=== PATIENT | female | born 1980 | race Caucasian/White ===

== ENCOUNTER 2017-10-22 16:03 | Emergency (ER) | payer OTHER ==
[~2017-10-22] VITALS: Ht 165.1 cm; Wt 90.7 kg
[~2017-10-22 16:03] MED LIST: ALBU90OI INH; Ativan1 MG SL; BUPR150ER PO; Desyrel50 MG PO; LATUDA40 MG PO; LITH300ER PO; METPHE20 PO; QUET100 PO; QVAR7.3 G1 IH; TRAZ100 PO; Zofran Odt4 MG SL
[2017-10-22 17:21] LABS: BASOPHILS ABSOLUTE AUTO 0.09 K/mm3 (0.00-0.23); BASOPHILS PERCENT AUTO 1 % (0-2); EOSINOPHILS ABSOLUTE AUTO 0.22 K/mm3 (0.00-0.68); EOSINOPHILS PERCENT AUTO 2 % (0-6); Hematocrit 38.9 % (33.0-51.0); Hemoglobin 12.5 g/dL (11.5-16.0); IMMATURE GRAN ABSOLUTE AUTO 0.07 K/mm3 (0.00-0.10); IMMATURE GRAN PERCENT AUTO 1 % (0-1); LYMPHOCYTES ABSOLUTE AUTO 2.38 K/mm3 (0.84-5.20); LYMPHOCYTES PERCENT AUTO 18 % (21-46); MONOCYTES ABSOLUTE AUTO 0.52 K/mm3 (0.16-1.47); MONOCYTES PERCENT AUTO 4 % (4-13); Mean Corpuscular HGB 30.3 pg (26.0-34.0); Mean Corpuscular HGB Conc 32.1 g/dL (31.5-36.5); Mean Corpuscular Volume 94 fL (80-100); Mean Platelet Volume 10.2 fL (9.1-12.4); NEUTROPHILS ABSOLUTE AUTO 10.04 K/mm3 (1.96-9.15); NEUTROPHILS PERCENT AUTO 75 % (41-73); Platelet Count 292 K/mm3 (150-400); RDW Coefficient Variation 11.9 % (11.7-14.2); RDW Standard Deviation 41.7 fL (35.1-46.3); Red Blood Cell Count 4.13 M/mm3 (3.80-5.20); White Blood Cell Count 13.32 K/mm3 (4.00-11.30)
[2017-10-22] MEDS ORDERED: GABA300 PO (17:27)
[2017-10-22] MEDS ORDERED: ARIP10 PO (17:28)
[2017-10-22] MEDS ORDERED: ZOLP10 PO (17:28)
[2017-10-22 18:24] LABS: Alanine Aminotransfer (ALT/SGP 27 U/L (12-78); Albumin, Blood 3.6 g/dL (3.4-5.0); Albumin/Globulin Ratio 0.9 (0.8-1.8); Alk Phos 93 U/L (50-136); Anion Gap 11 mmol/L (6-16); Aspartate Aminotrans (AST/SGOT 35 U/L (12-37); Bilirubin, Total 0.4 mg/dL (0.1-1.0); Blood Urea Nitrogen 7 mg/dL (8-24); Bun/Creatinine Ratio 8.9 (12.0-20.0); CO2, Blood 22 mmol/L (21-32); Calcium, Blood 8.9 mg/dL (8.5-10.1); Chloride, Blood 107 mmol/L (98-108); Creatinine, Blood 0.79 mg/dL (0.40-1.00); Ethanol (Alcohol), Blood, Med <3 mg/dL; Globulin, Blood 4.1 g/dL (2.2-4.0); Glomerular Filtration Rate >60 (60-); Glucose, Blood 97 mg/dL (70-99); Potassium, Blood 4.9 mmol/L (3.5-5.5); Sodium, Blood 140 mmol/L (136-145); Total Protein, Blood 7.7 g/dL (6.4-8.2)
[2017-10-22 19:10] LABS: Lithium 1.01 mmol/L (0.60-1.20)
[2018-08-29] MEDS ORDERED: BENZ100A PO (22:38)
[2018-08-29] MEDS ORDERED: Prednisone20 MG PO (22:38)
== END 2017-10-22 19:32 | disposition home or self-care (01) ==
LOC: ER 16:03
PROVIDERS: Emergency Medicine
DX: K59.00 Constipation, unspecified (principal); R10.13 Epigastric pain; F17.200 Nicotine dependence, unspecified, uncomplicated; F32.9 Major depressive disorder, single episode, unspecified; Z88.0 Allergy status to penicillin; Z79.899 Other long term (current) drug therapy
CPT/HCPCS: 74176; 80053; 80178; 83690; 84703; 85025; 96361; 96374; 96375; 99284; G0480; J1170; J2550; J7030

== ENCOUNTER → 2019-03-07 | Outpatient (CLI) | payer OTHER ==
[~2019-03-07] MED LIST changes: +ARIP10 PO; +BENZ100A PO; +GABA300 PO; +Prednisone20 MG PO; +ZOLP10 PO
[2019-03-11 14:07] LABS: HPV 16 Negative (Negative); HPV 18 Negative (Negative); HPV OTHER HR TYPES Negative (Negative)
== END | disposition home or self-care (01) ==
LOC: LAB SHORT 15:54 → LAB 15:54
PROVIDERS: Obstetrics & Gynecology
DX: Z01.411 Encounter for gynecological examination (general) (routine) with abnormal findings (principal); L02.419 Cutaneous abscess of limb, unspecified
CPT/HCPCS: 87070; 87205; 87624; G0123

== ENCOUNTER 2020-07-23 19:24 | Emergency (ER) | payer OTHER ==
[~2020-07-23] VITALS: Ht 165.1 cm; Wt 86.2 kg
[~2020-07-23 19:24] MED LIST changes: +B-1100 M1 PO; +CYCLOBENZAPRINE5 MG PO; +Diphenhydramine50 M1 PO; +FOLI1 PO; -GABA300 PO; +GABAPENTIN600 MG PO; +LEVE500 PO; +PYRI100 PO
[2020-07-23 19:49] LABS: BASOPHILS ABSOLUTE AUTO 0.13 K/mm3 (0.00-0.23); BASOPHILS PERCENT AUTO 1 % (0-2); EOSINOPHILS ABSOLUTE AUTO 0.29 K/mm3 (0.00-0.68); EOSINOPHILS PERCENT AUTO 3 % (0-6); Hematocrit 32.9 % (33.0-51.0); Hemoglobin 9.4 g/dL (11.5-16.0); IMMATURE GRAN ABSOLUTE AUTO 0.05 K/mm3 (0.00-0.10); IMMATURE GRAN PERCENT AUTO 1 % (0-1); LYMPHOCYTES ABSOLUTE AUTO 2.47 K/mm3 (0.84-5.20); LYMPHOCYTES PERCENT AUTO 24 % (21-46); MONOCYTES PERCENT AUTO 5 % (4-13); Mean Corpuscular HGB 21.1 pg (26.0-34.0); Mean Corpuscular HGB Conc 28.6 g/dL (31.5-36.5); Mean Corpuscular Volume 74 fL (80-100); Mean Platelet Volume 9.6 fL (9.1-12.4); NEUTROPHILS ABSOLUTE AUTO 6.96 K/mm3 (1.96-9.15); NEUTROPHILS PERCENT AUTO 67 % (41-73); Platelet Count 407 K/mm3 (150-400); RDW Coefficient Variation 17.8 % (11.7-14.2); RDW Standard Deviation 46.7 fL (35.1-46.3); Red Blood Cell Count 4.46 M/mm3 (3.80-5.20)
[2020-07-23 19:56] LABS: Source, Urine Clean Catch
[2020-07-23 19:56] LABS: International Normalized Ratio 0.92; Prothrombin Time Results 9.9 Sec (9.7-11.5)
[2020-07-23 19:59] LABS: Bilirubin, Urine Neg (Neg); Blood, Urine Neg (Neg); Glucose Qualitative, Urine Neg (Neg); Ketones, Urine Neg (Neg); Leukocyte Esterase, Urine Neg (Neg); Nitrite, Urine Neg (Neg); Protein, Urine Neg (Neg); Specific Gravity, Urine 1.005 (1.003-1.022); Urobilinogen, Urine NORM (Normal)
[2020-07-23 20:04] LABS: Beta HCG, Quantitative, Serum <1 mIU/mL (0-3); Ethanol (Alcohol), Blood, Med <3 mg/dL
[2020-07-23 20:07] LABS: Alanine Aminotransfer (ALT/SGP 59 U/L (12-78); Albumin, Blood 3.7 g/dL (3.4-5.0); Albumin/Globulin Ratio 0.8 (0.8-1.8); Alk Phos 124 U/L (50-136); Anion Gap 10 mmol/L (6-16); Aspartate Aminotrans (AST/SGOT 54 U/L (12-37); Bilirubin, Total 0.1 mg/dL (0.1-1.0); Blood Urea Nitrogen 13 mg/dL (8-24); Bun/Creatinine Ratio 11.8 (12.0-20.0); CO2, Blood 22 mmol/L (21-32); Calcium, Blood 9.6 mg/dL (8.5-10.1); Chloride, Blood 107 mmol/L (98-108); Globulin, Blood 4.4 g/dL (2.2-4.0); Glomerular Filtration Rate 58 (60-); Glucose, Blood 159 mg/dL (70-99); Potassium, Blood 3.8 mmol/L (3.5-5.5); Sodium, Blood 139 mmol/L (136-145); Total Protein, Blood 8.1 g/dL (6.4-8.2)
[2020-07-23 20:10] LABS: Appearance, Urine Clear (Clear); Color, Urine Yellow (P-Yellow)
[2020-07-23 20:17] LABS: U Amphetamine Screen DETECTED; U Barbituate Screen Not Detected; U Benzodiazapine Screen Not Detected; U Buprenorphine Screen Not Detected; U Cannabinoids Screen DETECTED; U Cocaine Screen Not Detected; U Methadone Screen Not Detected; U Methamphetamine Screen Not Detected; U Opiates Screen Not Detected; U Oxycodone Screen Not Detected; U Phencyclidine Screen Not Detected; U Propoxyphene Screen Not Detected
[2020-07-23] MEDS ORDERED: CLIN150 PO (20:31)
== END 2020-07-23 22:36 | disposition home or self-care (01) ==
LOC: ER 19:24
PROVIDERS: Emergency Medicine
DX: G40.909 Epilepsy, unspecified, not intractable, without status epilepticus (principal); F90.9 Attention-deficit hyperactivity disorder, unspecified type; F32.9 Major depressive disorder, single episode, unspecified; F17.290 Nicotine dependence, other tobacco product, uncomplicated; Z79.899 Other long term (current) drug therapy; Z88.0 Allergy status to penicillin; W16.012A Fall into swimming pool striking water surface causing other injury, initial encounter
CPT/HCPCS: 70450; 72125; 80053; 81003; 83690; 84702; 85025; 85610; 99285-25; G0480

== ENCOUNTER 2020-08-16 18:54 | Emergency (ER) | payer OTHER ==
[~2020-08-16] VITALS: Ht 175.3 cm; Wt 81.7 kg
[~2020-08-16 18:54] MED LIST changes: +CLIN150 PO
[2020-08-16] MEDS ORDERED: SYMBICORT 160-4.6 GM INH (19:33)
[2020-08-16] MEDS ORDERED: Ventolin/Prove6.7 GM INH (19:34)
[2020-08-16] MEDS ORDERED: CYCLOBENZAPRINE5 MG PO (19:34)
[2020-08-16] MEDS ORDERED: HYDCHL25 PO (19:34)
[2020-08-16] MEDS ORDERED: POTA10T PO (19:35)
[2020-08-16] MEDS ORDERED: ARIP20 PO (19:35)
[2020-08-16] MEDS ORDERED: Primidone50 MG PO (19:35)
[2020-08-16 19:48] LABS: BASOPHILS ABSOLUTE AUTO 0.14 K/mm3 (0.00-0.23); BASOPHILS PERCENT AUTO 1 % (0-2); EOSINOPHILS ABSOLUTE AUTO 0.29 K/mm3 (0.00-0.68); EOSINOPHILS PERCENT AUTO 3 % (0-6); Hematocrit 34.9 % (33.0-51.0); Hemoglobin 9.9 g/dL (11.5-16.0); IMMATURE GRAN ABSOLUTE AUTO 0.07 K/mm3 (0.00-0.10); IMMATURE GRAN PERCENT AUTO 1 % (0-1); LYMPHOCYTES ABSOLUTE AUTO 2.57 K/mm3 (0.84-5.20); LYMPHOCYTES PERCENT AUTO 24 % (21-46); MONOCYTES ABSOLUTE AUTO 0.56 K/mm3 (0.16-1.47); MONOCYTES PERCENT AUTO 5 % (4-13); Mean Corpuscular HGB 20.9 pg (26.0-34.0); Mean Corpuscular HGB Conc 28.4 g/dL (31.5-36.5); Mean Corpuscular Volume 74 fL (80-100); Mean Platelet Volume 9.8 fL (9.1-12.4); NEUTROPHILS PERCENT AUTO 67 % (41-73); Platelet Count 488 K/mm3 (150-400); RDW Coefficient Variation 18.6 % (11.7-14.2); Red Blood Cell Count 4.74 M/mm3 (3.80-5.20); White Blood Cell Count 10.93 K/mm3 (4.00-11.30)
[2020-08-16 20:04] LABS: U Amphetamine Screen DETECTED; U Barbituate Screen Not Detected; U Benzodiazapine Screen DETECTED; U Buprenorphine Screen Not Detected; U Cannabinoids Screen DETECTED; U Cocaine Screen Not Detected; U Methadone Screen Not Detected; U Methamphetamine Screen DETECTED; U Opiates Screen Not Detected; U Oxycodone Screen Not Detected; U Phencyclidine Screen Not Detected; U Propoxyphene Screen Not Detected
[2020-08-16 20:05] LABS: Alanine Aminotransfer (ALT/SGP 44 U/L (12-78); Albumin, Blood 4.2 g/dL (3.4-5.0); Alk Phos 99 U/L (50-136); Anion Gap 14 mmol/L (6-16); Aspartate Aminotrans (AST/SGOT 31 U/L (12-37); Bilirubin, Total 0.3 mg/dL (0.1-1.0); Blood Urea Nitrogen 14 mg/dL (8-24); Bun/Creatinine Ratio 10.6 (12.0-20.0); CO2, Blood 20 mmol/L (21-32); Calcium, Blood 9.6 mg/dL (8.5-10.1); Chloride, Blood 107 mmol/L (98-108); Creatinine, Blood 1.32 mg/dL (0.40-1.00); Ethanol (Alcohol), Blood, Med <3 mg/dL; Glomerular Filtration Rate 47 (60-); Glucose, Blood 159 mg/dL (70-99); Potassium, Blood 3.9 mmol/L (3.5-5.5); Salicylate <1.7 mg/dL (2.8-20.0); Sodium, Blood 141 mmol/L (136-145); Total Protein, Blood 8.2 g/dL (6.4-8.2)
[2020-08-16 20:06] LABS: Acetaminophen, Random <2.0 ug/mL (10.0-30.0)
== END 2020-08-16 21:20 | disposition home or self-care (01) ==
LOC: ER 18:54
PROVIDERS: Student in an Organized Health Care Education/Training Program
DX: R45.1 Restlessness and agitation (principal); F15.10 Other stimulant abuse, uncomplicated; F90.9 Attention-deficit hyperactivity disorder, unspecified type; Z79.51 Long term (current) use of inhaled steroids; Z79.899 Other long term (current) drug therapy; Z88.0 Allergy status to penicillin; Z88.8 Allergy status to other drugs, medicaments and biological substances
CPT/HCPCS: 36415; 80053; 85025; 96374; 99285-25; G0480; J2060

== ENCOUNTER 2020-11-03 18:24 | Inpatient (IN) | payer OTHER ==
[~2020-11-03] VITALS: Ht 165.1 cm; Wt 90.3 kg
[~2020-11-03 18:24] MED LIST changes: +ARIP20 PO; +HYDCHL25 PO; +POTA10T PO; +Primidone50 MG PO; +SYMBICORT 160-4.6 GM INH
[2020-11-03] MEDS ORDERED: AMPDEX15CR PO (18:35)
[2020-11-03] MEDS ORDERED: BUPR75 PO (18:35)
[2020-11-03 21:07] LABS: BASOPHILS ABSOLUTE AUTO 0.04 K/mm3 (0.00-0.23); BASOPHILS PERCENT AUTO 0 % (0-2); EOSINOPHILS ABSOLUTE AUTO 0.02 K/mm3 (0.00-0.68); EOSINOPHILS PERCENT AUTO 0 % (0-6); IMMATURE GRAN ABSOLUTE AUTO 0.59 K/mm3 (0.00-0.10); IMMATURE GRAN PERCENT AUTO 3 % (0-1); LYMPHOCYTES ABSOLUTE AUTO 2.04 K/mm3 (0.84-5.20); LYMPHOCYTES PERCENT AUTO 10 % (21-46); MONOCYTES ABSOLUTE AUTO 0.66 K/mm3 (0.16-1.47); MONOCYTES PERCENT AUTO 3 % (4-13); Mean Corpuscular HGB 20.2 pg (26.0-34.0); Mean Corpuscular HGB Conc 29.1 g/dL (31.5-36.5); Mean Corpuscular Volume 69 fL (80-100); Mean Platelet Volume 9.6 fL (9.1-12.4); NEUTROPHILS ABSOLUTE AUTO 17.55 K/mm3 (1.96-9.15); NEUTROPHILS PERCENT AUTO 84 % (41-73); Platelet Count 878 K/mm3 (150-400); RDW Coefficient Variation 18.4 % (11.7-14.2); RDW Standard Deviation 45.5 fL (35.1-46.3); Red Blood Cell Count 2.53 M/mm3 (3.80-5.20)
[2020-11-03 21:16] LABS: Hematocrit 17.5 % (33.0-51.0); Hemoglobin 5.1 g/dL (11.5-16.0)
[2020-11-03 21:26] LABS: Source, Urine Voided
[2020-11-03 21:39] LABS: Appearance, Urine Clear (Clear); Bilirubin, Urine Neg (Neg); Blood, Urine 1+ (Neg); Color, Urine Yellow (P-Yellow); Glucose Qualitative, Urine Neg (Neg); Ketones, Urine Neg (Neg); Leukocyte Esterase, Urine 2+ (Neg); Nitrite, Urine Neg (Neg); Protein, Urine 2+ (Neg); Urobilinogen, Urine NORM (Normal)
[2020-11-03 21:41] LABS: Lithium 0.42 mmol/L (0.60-1.20)
[2020-11-03 21:51] LABS: Amorphous Light (0-Heavy); Bacteria Mod /hpf; Red Blood Cells, Urine Rare /hpf (0-2); Squamous Epithelial Cells Mod /hpf (Few)
[2020-11-03 21:55] LABS: U Amphetamine Screen Not Detected; U Barbituate Screen Not Detected; U Benzodiazapine Screen Not Detected; U Buprenorphine Screen Not Detected; U Cannabinoids Screen DETECTED; U Cocaine Screen Not Detected; U Methadone Screen Not Detected; U Methamphetamine Screen Not Detected; U Opiates Screen Not Detected; U Oxycodone Screen Not Detected; U Phencyclidine Screen Not Detected; U Propoxyphene Screen Not Detected
[2020-11-03 21:58] LABS: Percent Saturation 3.8 % (15.0-50.0)
--- NOTE | 2020-11-03 23:20 | NUR ---
NOTIFIED / ELEVATED TEMP PT BROUGHT TO PCU BY CARRI FROM ER W/ BLOOD INDUSING. NOTIFIED THAT PT TEMP NOTED TO BE INCREASING & PT REPORTS FEVERS & CHILLS AT HOME PRIOR TO ARRIVAL & BLOOD INITIATION. NOTIFIED W/ OKAY TO CONTINUE BLOOD TRANSFUSION.
--- NOTE | 2020-11-04 04:08 | NUR ---
WEB DEVELOPMENT DIRECTOR SUMMARY PT ARRIVED ON THE FLOOR WITH FIRST UNIT OF BLOOD RUNNING. REPEAT VS SHOWED AN INCREASING TEMP WHICH PEAKED AT 103 SO THE PROVIDER WAS CONTACTED WHO ORDERED TYLENOL AND TO MONITOR SYMPTOMS. PT WAS GIVEN TYLENOL WHICH BROUGHT TEMP DOWN, CURRENT TEMP IS 97.9. NO OBVIOUS SIGNS OF BLEEDING HOWEVER BP HAS REMAINED LOWER WITH SBP AROUND 100. PT HAS TREMOR THAT SHE THOUGHT BEGAN WITH FEVER AND WAS DIAPHORETIC THROUGHOUT THE SHIFT. CIWA 2-5 DUE TO SWEATING AND TREMOR THOUGH PT REPORTED THAT SHE DOESNT REALLY DRINK ANYMORE. PT HAS BEEN SINUS TACH IN THE 100'S BUT HAS IMPROVED THROUGHOUT THE SHIFT. NO NAUSEA THIS SHIFT. O2 SATS >92 ON RM AIR. PT IS AXO X4. WCTM.
[2020-11-04 06:47] LABS: Bun/Creatinine Ratio 16.7 (12.0-20.0); Calcium, Blood 7.6 mg/dL (8.5-10.1); Creatinine, Blood 1.56 mg/dL (0.40-1.00)
[2020-11-04 06:55] LABS: Hematocrit 24.2 % (33.0-51.0); Hemoglobin 7.5 g/dL (11.5-16.0); Mean Corpuscular HGB 22.6 pg (26.0-34.0); Mean Corpuscular Volume 73 fL (80-100); Mean Platelet Volume 10.1 fL (9.1-12.4); Platelet Count 882 K/mm3 (150-400); RDW Coefficient Variation 21.3 % (11.7-14.2); Red Blood Cell Count 3.32 M/mm3 (3.80-5.20); White Blood Cell Count 22.49 K/mm3 (4.00-11.30)
[2020-11-04 12:37] LABS: Hematocrit 20.7 % (33.0-51.0); Hemoglobin 6.3 g/dL (11.5-16.0)
[2020-11-04 13:02] LABS: Percent Saturation 25.4 % (15.0-50.0)
[2020-11-04 16:32] LABS: Hematocrit 25.3 % (33.0-51.0); Hemoglobin 7.3 g/dL (11.5-16.0)
--- NOTE | 2020-11-04 18:02 | NUR ---
PT SUMMARY: PT ALERT AND ORIENTED X3, UNSURE OF TIME AND DATE, PLEASANT AND COOPERATIVE. VITALS HRR SR 90'S, BP SYSTOLIC 115'S, SATS ABOVE 98% ON RA, AFEBRILE. CIWA SCORE HAS BEEN 5-8, ATIVAN AND LIBRIUM GIVEN FOR THE SHIFT PT STILL HAS TREMORS/CHILLS WORSENS WITH MOVEMENTS, MILD HEADACHE. NO REPORTED BLACK STOOLS OR ANY ACTIVE BLEEDING AT THIS TIME LAST HGB 7.3. PT STARTED FEELING SHORT OF BREATH MOSTLY WITH EXERTION AND WHEEZY PT STATED SHE HAS ASTHMA AND GETS EXACERBATED WITH STRESS ALBUTEROL UPDRAFT ORDERED AND WAS EFFECTIVE AFTER 1 DOSE GIVEN. ALSO C/O MENSTRUAL LIKE CRAMPS TYLENOL GIVEN AT THIS TIME, NORCO ORDERED WELL PRN. NS RUNNING AT 100MLS/HR. PT USES BSC FOR TOILETING, USED BEDPAN ONCE WHEN PT WAS FEELING SHORT OF BREATH. PT VOIDING WITH ADEQUATE AMOUNT OF URINE, URINE YELLOW LADY IN COLOR. PT DIET RESUMED TO CLEAR LIQUIDS PT TOLERATING WELL. PT REMAINS IN BED RESTING, NO OTHER ISSUES ENCOUNTERED FOR THE SHIFT, ABLE TO MAKE NEEDS KNOWN, WILL MONITOR UNTIL END OF SHIFT
[2020-11-04 21:56] LABS: Hematocrit 21.7 % (33.0-51.0); Hemoglobin 6.6 g/dL (11.5-16.0)
--- NOTE | 2020-11-04 22:50 | NUR ---
HEMOGLOBIN 6.6 CALLED RAE BARCENAS TO REPORT DROP IN HEMOGLOBIN FROM 7.3 TO 6.6. NS @100 ML/HR, PT DRANK ABOUT 1500 MLS SINCE START OF SHIFT. MAY BE DUE TO HEMODILUTION. NO NEW ORDER ACCEPT FOR AM LABS ARE IN. DECREASED NS FROM 100 MLS TO 50 MLS/HR PER ORDER.
[2020-11-05 04:29] LABS: BASOPHILS ABSOLUTE AUTO 0.05 K/mm3 (0.00-0.23); BASOPHILS PERCENT AUTO 0 % (0-2); EOSINOPHILS PERCENT AUTO 1 % (0-6); IMMATURE GRAN ABSOLUTE AUTO 0.39 K/mm3 (0.00-0.10); IMMATURE GRAN PERCENT AUTO 2 % (0-1); LYMPHOCYTES ABSOLUTE AUTO 1.54 K/mm3 (0.84-5.20); LYMPHOCYTES PERCENT AUTO 9 % (21-46); MONOCYTES ABSOLUTE AUTO 0.48 K/mm3 (0.16-1.47); MONOCYTES PERCENT AUTO 3 % (4-13); Mean Corpuscular HGB 22.3 pg (26.0-34.0); Mean Corpuscular HGB Conc 29.5 g/dL (31.5-36.5); Mean Corpuscular Volume 76 fL (80-100); Mean Platelet Volume 9.8 fL (9.1-12.4); NEUTROPHILS PERCENT AUTO 85 % (41-73); Platelet Count 856 K/mm3 (150-400); RDW Coefficient Variation 20.6 % (11.7-14.2); RDW Standard Deviation 55.3 fL (35.1-46.3); Red Blood Cell Count 2.65 M/mm3 (3.80-5.20); White Blood Cell Count 17.46 K/mm3 (4.00-11.30)
[2020-11-05 04:49] LABS: Hemoglobin 5.9 g/dL (11.5-16.0)
[2020-11-05 04:53] LABS: Bun/Creatinine Ratio 15.5 (12.0-20.0); Calcium, Blood 7.9 mg/dL (8.5-10.1); Creatinine, Blood 1.29 mg/dL (0.40-1.00); Potassium, Blood 3.7 mmol/L (3.5-5.5)
--- NOTE | 2020-11-05 05:03 | NUR ---
CALLED DR BRUNSON FOR HEMAGLOBIN OF 5.9. 2 UNITS OF RBC ORDERED. NO SIGNS OF BLEEDING. VSS.
--- NOTE | 2020-11-05 06:57 | NUR ---
STAYED IN ROOM FIRST 15 MINS OF BLOOD TRANSFUSION. NO SIGNS AND SYMPTOMS OF ADVERSE REACTIONS NOTED. VSS.
--- NOTE | 2020-11-05 08:22 | NUR ---
CIWA 9 at this time. STates pain in her lower abdomen, now for several weeks, describes as cramping with intermittent sharp pains, compares it to menstrual pains. has implants for control, and had light spotting recently, but a long time since a normal menstrual cycle. States she was told as outpt that she may have early menopause. Mild anxiety, mild headache, moderate tremors. Oriented except to date. States date is June 08, 2021. Fumbles over her words at times. Tachypneic at rest, states dyspnea worse with activity, which is what brought her into hosptial, along with pain. Frequently talks in her sleep. Blood transfusion still infusing at this time, as well as protonix gtt. She had some of her broth for breakfast, states that eating / drinking gives her pain relief. She would like to have regular food.
--- NOTE | 2020-11-05 09:23 | NUR ---
Dr. Perez here to see the patient.
[2020-11-05 09:51] LABS: Hematocrit 24.4 % (33.0-51.0); Hemoglobin 7.3 g/dL (11.5-16.0)
--- NOTE | 2020-11-05 11:46 | NUR ---
MEDICATED With librium at this time.
--- NOTE | 2020-11-05 14:04 | NUR ---
Pt states headache is resolved , and still having some abdominal pain intermitently. Had one large brown soft formed bowel movement, sent for guiac at this time.
[2020-11-05 14:28] LABS: Hematocrit 27.1 % (33.0-51.0); Hemoglobin 8.3 g/dL (11.5-16.0)
--- NOTE | 2020-11-05 16:53 | NUR ---
States that her pain level is improving. She is sitting up in bed, talking with her daughter. Pleasant, no anxiety noted. No dyspnea noted at this time.
--- NOTE | 2020-11-05 16:56 | NUR ---
The pt has appeared to be napping on and off all day. She states that she is meditating/napping throughout the day. States that she occasionally has a headache, and also intermittent abdominal pain, and both of these are exacerbated by her activity and improved with rest. She is forgetful of directions and not oriented to the date, but only to the year. She has consistently been tachypneic, shallow breathing, with clear lung sounds, at rest and with activity. NO hypoxemia. Tolerating walking to the bathroom or use of BSC for toileting. Tolerating clear liquids by mouth, and asking for more food; however, voiced understanding that her diet will stay clear liquids at least until an evaluation by GI can be done tomorrow. Stool for guaic has been sent and is still pending at last check.
[2020-11-05 20:40] LABS: Hematocrit 25.5 % (33.0-51.0)
[2020-11-06 02:19] LABS: BASOPHILS ABSOLUTE AUTO 0.04 K/mm3 (0.00-0.23); BASOPHILS PERCENT AUTO 0 % (0-2); EOSINOPHILS ABSOLUTE AUTO 0.14 K/mm3 (0.00-0.68); EOSINOPHILS PERCENT AUTO 1 % (0-6); Hematocrit 24.7 % (33.0-51.0); Hemoglobin 7.8 g/dL (11.5-16.0); IMMATURE GRAN ABSOLUTE AUTO 0.24 K/mm3 (0.00-0.10); IMMATURE GRAN PERCENT AUTO 2 % (0-1); LYMPHOCYTES ABSOLUTE AUTO 1.63 K/mm3 (0.84-5.20); LYMPHOCYTES PERCENT AUTO 11 % (21-46); MONOCYTES ABSOLUTE AUTO 0.55 K/mm3 (0.16-1.47); MONOCYTES PERCENT AUTO 4 % (4-13); Mean Corpuscular HGB 24.1 pg (26.0-34.0); Mean Corpuscular HGB Conc 31.6 g/dL (31.5-36.5); Mean Corpuscular Volume 76 fL (80-100); Mean Platelet Volume 9.1 fL (9.1-12.4); NEUTROPHILS ABSOLUTE AUTO 12.33 K/mm3 (1.96-9.15); NEUTROPHILS PERCENT AUTO 83 % (41-73); Platelet Count 816 K/mm3 (150-400); RDW Coefficient Variation 20.4 % (11.7-14.2); RDW Standard Deviation 56.5 fL (35.1-46.3); Red Blood Cell Count 3.24 M/mm3 (3.80-5.20); White Blood Cell Count 14.93 K/mm3 (4.00-11.30)
[2020-11-06 02:35] LABS: Bun/Creatinine Ratio 8.1 (12.0-20.0); Creatinine, Blood 1.11 mg/dL (0.40-1.00); Potassium, Blood 3.3 mmol/L (3.5-5.5)
--- NOTE | 2020-11-06 08:06 | NUR ---
SHIFT SUMMARY PATIENT IS ALERT, ORIENTED AND COOPERATIVE WITH CARE. PATIENT CAN BE FORGETFUL AND FORGETS TO USE CALL LIGHT, BED ALARM ON. CIWA 8-9 MEDICATED, SEE EMAR. 02 SATS >90% ON RA. VSS, NO ACUTE CHANGES. PT CALLED, UPDATED ON PT CONDITION. CALL LIGHT IN REACH.
[2020-11-06 09:17] LABS: Hematocrit 29.4 % (33.0-51.0); Hemoglobin 8.8 g/dL (11.5-16.0)
[2020-11-06 11:00] LABS: Stool Occult Blood Guaiac 1 Neg (Neg)
--- NOTE | 2020-11-06 11:29 | NUR ---
SOHANWA 5. States mild headache, tremors seen and felt of hands. STates that abdominal and flank pain is decreased from yesterday. Denies nausea. STates that she is extremely thirsty. States she knows that she can't eat food yet, but would really like to soon. Tolerating clear liquid diet since yesterday. Brown, soft formed bowel movement yesterday, sent for guaic 1400 11/05/20.
--- NOTE | 2020-11-06 11:31 | NUR ---
stool negative for blood.
[2020-11-06 12:43] LABS: Base Excess Venous -1.5 mmol/L; Bicarbonate Venous 22.6 mmol/L (24.0-30.0); PCO2 Venous 42.5 mmHg (38-42); PO2 Venous 35.4 mmHg (38-42); pH Blood Venous 7.36 (7.34-7.37)
--- NOTE | 2020-11-06 13:13 | NUR ---
Call from pt's to inquire about her condition. UPdated on pt's situation and condition. states that the pt uses 25-30 whippets per day, which he explains are cans of nitrous oxide, normally used for whipped cream but without the cream are used as an inhalant for highs. This information was also shared with her attending hospitalist, Dr. Perez. VBG complete. Telephone report was given to Fabiana Caraballo RN at this time. Pt will be taken up to 339 at this time, by the PCT.
--- NOTE | 2020-11-06 20:29 | NUR ---
ASSUMPTION OF CARE. AOX3, PLEASANT AND COOPERATIVE. LUNG SOUNDS CLEAR T/O. OCCATIONAL DRY COUGH. SINUS ON TELE. NO CHEST PAIN. NO NAUSEA BUT DOES HAVE HYPOACTIVE BT. WANTS TO EAT BUT IS ON CLEAR DIET. SUPPLIER QUALITY ENGINEER TO GET HER SOME BROTH AND JELLOW. STATES SHE IS FEELING ALRIGHT, ONLY HAVING TREMORS AT THIS TIME, NO CAZARES NO NAUSEA, NOT FEELING ANXIOUS. CIWA 1. DENIES ANY NEEDS. CALL LIGHT IS IN REACH.
--- NOTE | 2020-11-07 00:09 | NUR ---
PT STARTED TO CRY WHEN WE TOOK HER WATER AWAY. SAYING SHE IS NOT FEELING GOOD, ASKED HER TO EXPLAIN. STATES SHE IS EMOTIONAL AND NOT FEELING GOOD AND THE ONLY THING THAT WAS HELPING WAS DRINKING WATER AND NOW SHE CAN'T. EXPLAINED TO HER THE REASONS BEHIND THIS. SHE CONTINUED TO CRY. GAVE 1MG OF ATIVAN TO HELP HER CALM DOWN.
--- NOTE | 2020-11-07 00:40 | NUR ---
HEARD WRAPPER WRESTLING IN THE ROOM THEN WATER RUNNING. FOUND THE PATIENT DRINKING WATER OUT OF THE SINK AND CANDY WRAPPERS ON THE TABLE. INFORMED HER AGAIN THAT SHE IS NOT TO HAVE ANYTHING BY MOUTH. SHE SAID SHE JUST SO ANXIOUS AND WANTS TO DRINK BUT CAN'T. GAVE HER ANOTHER MG OF ATIVAN TO HELP SEE IF IT WILL CALM HER.
--- NOTE | 2020-11-07 05:19 | NUR ---
SHIFT SUMMARY; JHON HAS HAD A ROUGH NIGHT. HER CIWA'S HAVE BEEN 1-10. SHE STARTED TO GET VERY ANXIOUS AFTER WE MADE HER NPO FOR PROCEDURE. SHE HAS BEEN UPSET AND NOT FOLLOWING INSTRUCTIONS. SHE HAS GOTTEN CANDY OUT OF HER PURSE AND EATEN IT. SHE HAS DRANK FROM THE SINK SEVERAL TIMES DISPITE US TELLING HER SHE CAN'T. SHE WAS GIVEN 4MG OF ATIVAN TO HELP BUT SHE ONLY RELAXED FOR SHORT PERIOD OF TIME AND WAS BACK UP. SHE HAS BEEN VERY RESTLESS THIS SHIFT, EMOTIONAL AND WANTING TO GO HOME. NO NAUSEA OR PAIN. URINATING WELL. VS WNL EXCEPT FOR RESPIRATIONS SLIGHTLY HIGH. HR HAS BEEN FROM 70'S-130'S. PROTONIX CONTINUES TO INFUSE WITH NO ISSUES. COVID-19 TEST PERFORMED THIS AM ALONG WITH LABS. CALL LIGHT IS IN REACH, INDEPENDENT IN THE ROOM.
[2020-11-07 05:49] LABS: BASOPHILS ABSOLUTE AUTO 0.08 K/mm3 (0.00-0.23); BASOPHILS PERCENT AUTO 1 % (0-2); EOSINOPHILS ABSOLUTE AUTO 0.09 K/mm3 (0.00-0.68); EOSINOPHILS PERCENT AUTO 1 % (0-6); Hematocrit 26.2 % (33.0-51.0); Hemoglobin 7.8 g/dL (11.5-16.0); IMMATURE GRAN ABSOLUTE AUTO 0.17 K/mm3 (0.00-0.10); IMMATURE GRAN PERCENT AUTO 1 % (0-1); LYMPHOCYTES ABSOLUTE AUTO 1.94 K/mm3 (0.84-5.20); LYMPHOCYTES PERCENT AUTO 16 % (21-46); MONOCYTES ABSOLUTE AUTO 0.46 K/mm3 (0.16-1.47); MONOCYTES PERCENT AUTO 4 % (4-13); Mean Corpuscular HGB 23.9 pg (26.0-34.0); Mean Corpuscular HGB Conc 29.8 g/dL (31.5-36.5); Mean Corpuscular Volume 80 fL (80-100); NEUTROPHILS ABSOLUTE AUTO 9.61 K/mm3 (1.96-9.15); NEUTROPHILS PERCENT AUTO 78 % (41-73); Platelet Count 763 K/mm3 (150-400); RDW Standard Deviation 63.6 fL (35.1-46.3); Red Blood Cell Count 3.26 M/mm3 (3.80-5.20); White Blood Cell Count 12.35 K/mm3 (4.00-11.30)
[2020-11-07 06:02] LABS: Influenza A, PCR NEGATIVE (NEGATIVE); Influenza B, PCR NEGATIVE (NEGATIVE); Resp Syncytial Virus, PCR NEGATIVE (NEGATIVE); SARS-Cov-2 (COVID-19) PCR, MMC NEGATIVE (NEGATIVE)
[2020-11-07 06:05] LABS: Anion Gap 10 mmol/L (6-16); Blood Urea Nitrogen 8 mg/dL (8-24); CO2, Blood 22 mmol/L (21-32); Calcium, Blood 8.1 mg/dL (8.5-10.1); Chloride, Blood 116 mmol/L (98-108); Creatinine, Blood 0.99 mg/dL (0.40-1.00); Glomerular Filtration Rate >60 (60-); Glucose, Blood 99 mg/dL (70-99); Potassium, Blood 3.5 mmol/L (3.5-5.5); Sodium, Blood 148 mmol/L (136-145)
[2020-11-07 08:10] LABS: Percent Saturation 9.9 % (15.0-50.0)
--- NOTE | 2020-11-07 08:58 | NUR ---
PT TRANSFERED TO [facility] VIA [facility]URNY FROM FLOOR. History, Chart, Medications and Allergies reviewed before start of procedure. Lungs clear T/O to Auscultation. Patient confirms NPO status and agrees with scheduled surgery. Pre-Op teaching done. Pt verbalizes understanding.
--- NOTE | 2020-11-07 09:29 | NUR ---
11/07/20 0929 ROSITA WADSWORTH History, Chart, Medications and Allergies reviewed before start of procedure. 3-LEAD EKG REVIEWED WITH PHYSICIAN PRIOR TO START OF PROCEDURE. O2 VIA N/C INTACT THROUGHOUT SEDATION/PROCEDURE. MONITOR INTACT WITH CONTINUOUS PULSE OXIMETRY AND INTERMITTENT BP. PATIENT DETERMINED TO BE ASA APPROPRIATE FOR PROPOFOL SEDATION PRIOR TO START OF PROCEDURE BY DR. PIERSON.
--- NOTE | 2020-11-07 14:10 | NUR ---
PATIENT DISCHARGED TO HOME WITH . VERBALIZED UNDERSTANDING OF D/C INSTRUCTIONS, STATED WILL F/U WITH PROVIDER AT [facility]. POWERGLIDE IV REMOVED WITHOUT INCIDENT. OFF UNIT VIA W/C AT 1409. NO BELONGINGS LEFT BEHIND IN ROOM.
== END 2020-11-07 14:09 | disposition home or self-care (01) | DRG 381 ==
LOC: ER 18:24 → MEDS 22:56 → PCU 22:56 → MEDS 11-06 13:31
PROVIDERS: Emergency Medicine; Internal Medicine; Internal Medicine Gastroenterology; Nurse Practitioner Acute Care; ADMIT Internal Medicine
PROC: 30233N1 Transfusion of Nonautologous Red Blood Cells into Peripheral Vein, Percutaneous Approach (ICD-10-PCS; principal; 2020-11-03)
PROC: 0DJ08ZZ Inspection of Upper Intestinal Tract, Via Natural or Artificial Opening Endoscopic (ICD-10-PCS; 2020-11-07)
DX: K22.11 Ulcer of esophagus with bleeding (principal); N10 Acute pyelonephritis; E87.1 Hypo-osmolality and hyponatremia; F10.239 Alcohol dependence with withdrawal, unspecified; N17.9 Acute kidney failure, unspecified; F90.9 Attention-deficit hyperactivity disorder, unspecified type; Z20.822 Contact with and (suspected) exposure to COVID-19; F17.290 Nicotine dependence, other tobacco product, uncomplicated; F43.10 Post-traumatic stress disorder, unspecified; E87.6 Hypokalemia; F31.9 Bipolar disorder, unspecified; I10 Essential (primary) hypertension; D50.9 Iron deficiency anemia, unspecified; J45.909 Unspecified asthma, uncomplicated
CPT/HCPCS: 0241U; 36415; 36430; 71046; 74176; 80048; 80053; 80178; 81001; 82272; 82728; 82803; 82947; 83036; 83540; 83550; 83605; 84703; 85014; 85018; 85025; 85027; 86803; 86850; 86900; 86901; 86923; 87040; 87086; 94640; 94760; 96361-59; 96365-59; 96368; 96375-59; 96376-59; 99285-25; A9270; C1751; C9113; J0696; J2060; J2250; J2354; J2405; J2704; J7030; J7050; J7120; P9016

== ENCOUNTER 2020-12-02 04:10 | Emergency (ER) | payer OTHER ==
[~2020-12-02] VITALS: Ht 165.1 cm; Wt 81.7 kg
[~2020-12-02 04:10] MED LIST changes: +AMPDEX15CR PO; +BUPR75 PO
[2020-12-02 04:49] LABS: BASOPHILS PERCENT AUTO 1 % (0-2); EOSINOPHILS ABSOLUTE AUTO 0.23 K/mm3 (0.00-0.68); EOSINOPHILS PERCENT AUTO 2 % (0-6); Hematocrit 31.5 % (33.0-51.0); Hemoglobin 9.6 g/dL (11.5-16.0); IMMATURE GRAN ABSOLUTE AUTO 0.07 K/mm3 (0.00-0.10); IMMATURE GRAN PERCENT AUTO 1 % (0-1); LYMPHOCYTES ABSOLUTE AUTO 3.26 K/mm3 (0.84-5.20); LYMPHOCYTES PERCENT AUTO 34 % (21-46); MONOCYTES ABSOLUTE AUTO 0.52 K/mm3 (0.16-1.47); MONOCYTES PERCENT AUTO 5 % (4-13); Mean Corpuscular HGB 25.5 pg (26.0-34.0); Mean Corpuscular HGB Conc 30.5 g/dL (31.5-36.5); Mean Corpuscular Volume 84 fL (80-100); Mean Platelet Volume 9.7 fL (9.1-12.4); NEUTROPHILS ABSOLUTE AUTO 5.38 K/mm3 (1.96-9.15); NEUTROPHILS PERCENT AUTO 56 % (41-73); Platelet Count 305 K/mm3 (150-400); Red Blood Cell Count 3.77 M/mm3 (3.80-5.20); White Blood Cell Count 9.56 K/mm3 (4.00-11.30)
[2020-12-02 05:07] LABS: Alanine Aminotransfer (ALT/SGP 20 U/L (12-78); Albumin, Blood 2.9 g/dL (3.4-5.0); Albumin/Globulin Ratio 0.6 (0.8-1.8); Alk Phos 115 U/L (50-136); Anion Gap 6 mmol/L (6-16); Aspartate Aminotrans (AST/SGOT 16 U/L (12-37); Bilirubin, Total 0.1 mg/dL (0.1-1.0); Blood Urea Nitrogen 21 mg/dL (8-24); Bun/Creatinine Ratio 23.1 (12.0-20.0); CO2, Blood 25 mmol/L (21-32); Calcium, Blood 8.6 mg/dL (8.5-10.1); Chloride, Blood 112 mmol/L (98-108); Creatinine, Blood 0.91 mg/dL (0.40-1.00); Ethanol (Alcohol), Blood, Med <3 mg/dL; Globulin, Blood 4.8 g/dL (2.2-4.0); Glomerular Filtration Rate >60 (60-); Glucose, Blood 122 mg/dL (70-99); Potassium, Blood 4.4 mmol/L (3.5-5.5); Sodium, Blood 143 mmol/L (136-145); Total Protein, Blood 7.7 g/dL (6.4-8.2)
== END 2020-12-02 06:30 | disposition home or self-care (01) ==
LOC: ER 04:10
PROVIDERS: Emergency Medicine
DX: R10.9 Unspecified abdominal pain (principal); R06.02 Shortness of breath; R53.1 Weakness; F17.290 Nicotine dependence, other tobacco product, uncomplicated; Z88.0 Allergy status to penicillin
CPT/HCPCS: 80053; 83690; 85025; 93005; 93010; 99284-25; A9270; G0480

== ENCOUNTER 2020-12-12 01:32 | Emergency (ER) | payer OTHER ==
[~2020-12-12] VITALS: Ht 165.1 cm; Wt 81.7 kg
[2020-12-12 02:03] LABS: BASOPHILS ABSOLUTE AUTO 0.06 K/mm3 (0.00-0.23); BASOPHILS PERCENT AUTO 1 % (0-2); EOSINOPHILS ABSOLUTE AUTO 0.19 K/mm3 (0.00-0.68); EOSINOPHILS PERCENT AUTO 2 % (0-6); Hematocrit 28.9 % (33.0-51.0); Hemoglobin 9.1 g/dL (11.5-16.0); IMMATURE GRAN ABSOLUTE AUTO 0.05 K/mm3 (0.00-0.10); IMMATURE GRAN PERCENT AUTO 1 % (0-1); LYMPHOCYTES ABSOLUTE AUTO 2.91 K/mm3 (0.84-5.20); LYMPHOCYTES PERCENT AUTO 32 % (21-46); MONOCYTES ABSOLUTE AUTO 0.44 K/mm3 (0.16-1.47); MONOCYTES PERCENT AUTO 5 % (4-13); Mean Corpuscular HGB 27.6 pg (26.0-34.0); Mean Corpuscular HGB Conc 31.5 g/dL (31.5-36.5); Mean Corpuscular Volume 88 fL (80-100); Mean Platelet Volume 9.3 fL (9.1-12.4); NEUTROPHILS ABSOLUTE AUTO 5.39 K/mm3 (1.96-9.15); NEUTROPHILS PERCENT AUTO 60 % (41-73); Platelet Count 337 K/mm3 (150-400); RDW Coefficient Variation 27.9 % (11.7-14.2); RDW Standard Deviation 85.2 fL (35.1-46.3); White Blood Cell Count 9.04 K/mm3 (4.00-11.30)
[2020-12-12 02:33] LABS: Alanine Aminotransfer (ALT/SGP 24 U/L (12-78); Albumin, Blood 3.3 g/dL (3.4-5.0); Albumin/Globulin Ratio 0.7 (0.8-1.8); Alk Phos 102 U/L (50-136); Anion Gap 6 mmol/L (6-16); Aspartate Aminotrans (AST/SGOT 17 U/L (12-37); Bilirubin, Total 0.2 mg/dL (0.1-1.0); Blood Urea Nitrogen 18 mg/dL (8-24); Bun/Creatinine Ratio 22.7 (12.0-20.0); CO2, Blood 26 mmol/L (21-32); Calcium, Blood 8.4 mg/dL (8.5-10.1); Chloride, Blood 109 mmol/L (98-108); Creatinine, Blood 0.79 mg/dL (0.40-1.00); Ethanol (Alcohol), Blood, Med <3 mg/dL; Globulin, Blood 4.6 g/dL (2.2-4.0); Glomerular Filtration Rate >60 (60-); Glucose, Blood 153 mg/dL (70-99); Potassium, Blood 3.7 mmol/L (3.5-5.5); Salicylate <1.7 mg/dL (2.8-20.0); Sodium, Blood 141 mmol/L (136-145); Total Protein, Blood 7.9 g/dL (6.4-8.2)
[2020-12-12 02:37] LABS: Acetaminophen, Random <2.0 ug/mL (10.0-30.0)
[2020-12-12 03:54] LABS: U Amphetamine Screen Not Detected; U Barbituate Screen Not Detected; U Benzodiazapine Screen Not Detected; U Buprenorphine Screen Not Detected; U Cannabinoids Screen Not Detected; U Cocaine Screen Not Detected; U Methadone Screen Not Detected; U Methamphetamine Screen Not Detected; U Opiates Screen Not Detected; U Oxycodone Screen Not Detected; U Phencyclidine Screen Not Detected; U Propoxyphene Screen Not Detected
[2020-12-12 05:29] LABS: Lithium <0.20 mmol/L (0.60-1.20)
[2020-12-12 05:41] LABS: Source, Urine Clean Catch
[2020-12-12 05:50] LABS: Bilirubin, Urine Neg (Neg); Blood, Urine Neg (Neg); Glucose Qualitative, Urine Neg (Neg); Ketones, Urine Neg (Neg); Leukocyte Esterase, Urine 1+ (Neg); Nitrite, Urine Neg (Neg); Protein, Urine 1+ (Neg); Specific Gravity, Urine 1.025 (1.003-1.022); Urobilinogen, Urine NORM (Normal)
[2020-12-12 05:54] LABS: Appearance, Urine Clear (Clear); Color, Urine Yellow (P-Yellow)
[2020-12-12 05:57] LABS: Bacteria Mod /hpf; Red Blood Cells, Urine Not Seen /hpf (0-2); Squamous Epithelial Cells Few /hpf (Few)
[2020-12-12] MEDS ORDERED: Keflex500 MG PO (06:03)
[2020-12-12] MEDS ORDERED: Adderall 20 MG20 MG PO (14:09)
[2020-12-12] MEDS ORDERED: INDERAL XL80 M1 PO (14:13)
[2020-12-12] MEDS ORDERED: OMEP20ER PO (14:14)
[2020-12-12] MEDS ORDERED: MONT10T PO (14:16)
[2020-12-12] MEDS ORDERED: LITH300C PO (14:16)
[2020-12-12] MEDS ORDERED: HYDPAM25 PO (14:18)
[2020-12-12] MEDS ORDERED: Ventolin/Prove6.7 GM INH (14:19)
[2020-12-12] MEDS ORDERED: FLUTICASONE-SA1 EA11 INH (14:20)
[2020-12-12] MEDS ORDERED: BUPR150ER PO (14:24)
[2020-12-12] MEDS ORDERED: GABAPENTIN600 MG PO (14:25)
[2020-12-12] MEDS ORDERED: Primidone50 MG PO (14:26)
[2020-12-12] MEDS ORDERED: HYDCHL25 PO (14:27)
[2020-12-12] MEDS ORDERED: POTA10T PO (14:45)
[2020-12-12] MEDS ORDERED: GLYDO11 ML TOP (14:47)
[2020-12-12] MEDS ORDERED: ACET500 PO (14:48)
[2020-12-12] MEDS ORDERED: CYCLOBENZAPRINE5 MG PO (14:49)
[2020-12-12] MEDS ORDERED: IPRAT-ALBUT 0.5-3 ML NEB (14:50)
== END 2020-12-12 06:17 | disposition home or self-care (01) ==
LOC: ER 01:32
PROVIDERS: Emergency Medicine
DX: N39.0 Urinary tract infection, site not specified (principal); Z79.899 Other long term (current) drug therapy
CPT/HCPCS: 70450; 71045; 80053; 80178; 81001; 82140; 83605; 85025; 87077; 87086; 87186; 93005; 93010; 99285-25; A9270; G0480

== ENCOUNTER 2020-12-12 12:33 | Inpatient (IN) | payer OTHER ==
[~2020-12-12] VITALS: Ht 165.1 cm; Wt 72.9 kg
[~2020-12-12 12:33] MED LIST changes: +Keflex500 MG PO
[2020-12-12 13:29] LABS: BASOPHILS ABSOLUTE AUTO 0.05 K/mm3 (0.00-0.23); BASOPHILS PERCENT AUTO 1 % (0-2); EOSINOPHILS PERCENT AUTO 2 % (0-6); Hematocrit 29.1 % (33.0-51.0); Hemoglobin 8.9 g/dL (11.5-16.0); IMMATURE GRAN ABSOLUTE AUTO 0.08 K/mm3 (0.00-0.10); IMMATURE GRAN PERCENT AUTO 1 % (0-1); LYMPHOCYTES ABSOLUTE AUTO 3.18 K/mm3 (0.84-5.20); LYMPHOCYTES PERCENT AUTO 37 % (21-46); MONOCYTES ABSOLUTE AUTO 0.47 K/mm3 (0.16-1.47); MONOCYTES PERCENT AUTO 5 % (4-13); Mean Corpuscular HGB 27.2 pg (26.0-34.0); Mean Corpuscular HGB Conc 30.6 g/dL (31.5-36.5); Mean Corpuscular Volume 89 fL (80-100); Mean Platelet Volume 9.5 fL (9.1-12.4); NEUTROPHILS ABSOLUTE AUTO 4.74 K/mm3 (1.96-9.15); NEUTROPHILS PERCENT AUTO 54 % (41-73); Platelet Count 321 K/mm3 (150-400); RDW Coefficient Variation 27.9 % (11.7-14.2); RDW Standard Deviation 87.6 fL (35.1-46.3); Red Blood Cell Count 3.27 M/mm3 (3.80-5.20); White Blood Cell Count 8.72 K/mm3 (4.00-11.30)
[2020-12-12 13:41] LABS: Alanine Aminotransfer (ALT/SGP 21 U/L (12-78); Albumin, Blood 3.3 g/dL (3.4-5.0); Albumin/Globulin Ratio 0.8 (0.8-1.8); Alk Phos 99 U/L (50-136); Anion Gap 6 mmol/L (6-16); Aspartate Aminotrans (AST/SGOT 14 U/L (12-37); Bilirubin, Total 0.2 mg/dL (0.1-1.0); Blood Urea Nitrogen 22 mg/dL (8-24); Bun/Creatinine Ratio 26.1 (12.0-20.0); CO2, Blood 25 mmol/L (21-32); Calcium, Blood 8.4 mg/dL (8.5-10.1); Chloride, Blood 110 mmol/L (98-108); Creatinine, Blood 0.84 mg/dL (0.40-1.00); Ethanol (Alcohol), Blood, Med <3 mg/dL; Globulin, Blood 4.3 g/dL (2.2-4.0); Glomerular Filtration Rate >60 (60-); Glucose, Blood 157 mg/dL (70-99); Potassium, Blood 3.7 mmol/L (3.5-5.5); Sodium, Blood 141 mmol/L (136-145); Total Protein, Blood 7.6 g/dL (6.4-8.2)
[2020-12-12 13:45] LABS: Lithium <0.20 mmol/L (0.60-1.20)
[2020-12-12 13:49] LABS: Source, Urine Clean Catch
[2020-12-12 13:54] LABS: International Normalized Ratio 0.97; Prothrombin Time Results 10.4 Sec (9.7-11.5)
[2020-12-12 13:58] LABS: Appearance, Urine Clear (Clear); Bilirubin, Urine Neg (Neg); Blood, Urine 1+ (Neg); Color, Urine Yellow (P-Yellow); Glucose Qualitative, Urine Neg (Neg); Ketones, Urine Neg (Neg); Leukocyte Esterase, Urine 1+ (Neg); Nitrite, Urine Neg (Neg); Protein, Urine 1+ (Neg); Urobilinogen, Urine NORM (Normal)
[2020-12-12 14:04] LABS: Ethanol (Alcohol), Blood, Med <3 mg/dL; Salicylate <1.7 mg/dL (2.8-20.0); Thyroid Stimulating Hormone 0.168 uIU/mL (0.360-4.800); Thyroxine (T4) 9.9 ug/dL (4.8-13.9)
[2020-12-12 14:09] LABS: Bacteria Few /hpf; Red Blood Cells, Urine 0-2 /hpf (0-2); Squamous Epithelial Cells Few /hpf (Few)
[2020-12-12] MEDS ORDERED: Adderall 20 MG20 MG PO (14:09)
[2020-12-12] MEDS ORDERED: INDERAL XL80 M1 PO (14:13)
[2020-12-12] MEDS ORDERED: OMEP20ER PO (14:14)
[2020-12-12] MEDS ORDERED: LITH300C PO (14:16)
[2020-12-12] MEDS ORDERED: MONT10T PO (14:16)
[2020-12-12] MEDS ORDERED: HYDPAM25 PO (14:18)
[2020-12-12] MEDS ORDERED: Ventolin/Prove6.7 GM INH (14:19)
[2020-12-12] MEDS ORDERED: FLUTICASONE-SA1 EA11 INH (14:20)
[2020-12-12] MEDS ORDERED: BUPR150ER PO (14:24)
[2020-12-12] MEDS ORDERED: GABAPENTIN600 MG PO (14:25)
[2020-12-12] MEDS ORDERED: Primidone50 MG PO (14:26)
[2020-12-12] MEDS ORDERED: HYDCHL25 PO (14:27)
[2020-12-12 14:28] LABS: U Amphetamine Screen Not Detected; U Barbituate Screen Not Detected; U Benzodiazapine Screen Not Detected; U Buprenorphine Screen Not Detected; U Cannabinoids Screen Not Detected; U Cocaine Screen Not Detected; U Methadone Screen Not Detected; U Methamphetamine Screen Not Detected; U Opiates Screen Not Detected; U Oxycodone Screen Not Detected; U Phencyclidine Screen Not Detected; U Propoxyphene Screen Not Detected
[2020-12-12] MEDS ORDERED: POTA10T PO (14:45)
[2020-12-12] MEDS ORDERED: GLYDO11 ML TOP (14:47)
[2020-12-12] MEDS ORDERED: ACET500 PO (14:48)
[2020-12-12] MEDS ORDERED: CYCLOBENZAPRINE5 MG PO (14:49)
[2020-12-12] MEDS ORDERED: IPRAT-ALBUT 0.5-3 ML NEB (14:50)
--- NOTE | 2020-12-12 18:42 | NUR ---
Pt arrived to unit and was talking about the "bubble people". The transporting nurse reported that she had been asleep in the ER but was starting to wake up during transport to the floor. After assisting the pt to the bed she starting pulling at her craig and IV's, attempting to climb out of bed and nursing staff were unable to redirect her. Dr Carter was notified and gave orders for wrist restraints and initiated CIWA. Ativan was given as ordered and pt was able to calm down enough to get the tele in place. sterile processing technician reports sinus rhythm @ 76. O2 SAT was in the low 80's and oxygen was started via NC and is now 99-100%. Charge nurse is aware of pt status. Craig remains in place and is draining yellow urine. Pt does have some redness to her pannus but pictures were not able to be completed due to her combative behavior. Pt is now resting in bed and report given to oncoming RN.
--- NOTE | 2020-12-12 19:15 | NUR ---
ciwa score reviewed with charge nurse
[2020-12-13 03:43] LABS: BASOPHILS ABSOLUTE AUTO 0.04 K/mm3 (0.00-0.23); BASOPHILS PERCENT AUTO 1 % (0-2); EOSINOPHILS ABSOLUTE AUTO 0.15 K/mm3 (0.00-0.68); EOSINOPHILS PERCENT AUTO 2 % (0-6); Hematocrit 28.6 % (33.0-51.0); Hemoglobin 8.7 g/dL (11.5-16.0); IMMATURE GRAN ABSOLUTE AUTO 0.06 K/mm3 (0.00-0.10); IMMATURE GRAN PERCENT AUTO 1 % (0-1); LYMPHOCYTES PERCENT AUTO 33 % (21-46); MONOCYTES PERCENT AUTO 6 % (4-13); Mean Corpuscular HGB 27.5 pg (26.0-34.0); Mean Corpuscular HGB Conc 30.4 g/dL (31.5-36.5); Mean Corpuscular Volume 91 fL (80-100); Mean Platelet Volume 9.2 fL (9.1-12.4); NEUTROPHILS ABSOLUTE AUTO 3.95 K/mm3 (1.96-9.15); NEUTROPHILS PERCENT AUTO 57 % (41-73); Platelet Count 309 K/mm3 (150-400); RDW Coefficient Variation 28.4 % (11.7-14.2); RDW Standard Deviation 93.2 fL (35.1-46.3); Red Blood Cell Count 3.16 M/mm3 (3.80-5.20)
[2020-12-13 04:05] LABS: Alanine Aminotransfer (ALT/SGP 18 U/L (12-78); Albumin, Blood 2.9 g/dL (3.4-5.0); Albumin/Globulin Ratio 0.7 (0.8-1.8); Alk Phos 87 U/L (50-136); Anion Gap 3 mmol/L (6-16); Aspartate Aminotrans (AST/SGOT 7 U/L (12-37); Bilirubin, Total 0.5 mg/dL (0.1-1.0); Blood Urea Nitrogen 15 mg/dL (8-24); Bun/Creatinine Ratio 17.2 (12.0-20.0); CO2, Blood 28 mmol/L (21-32); Calcium, Blood 8.3 mg/dL (8.5-10.1); Chloride, Blood 114 mmol/L (98-108); Creatinine, Blood 0.87 mg/dL (0.40-1.00); Globulin, Blood 4.2 g/dL (2.2-4.0); Glomerular Filtration Rate >60 (60-); Glucose, Blood 98 mg/dL (70-99); Magnesium, Blood 2.1 mg/dL (1.6-2.4); Potassium, Blood 3.8 mmol/L (3.5-5.5); Sodium, Blood 145 mmol/L (136-145); Total Protein, Blood 7.1 g/dL (6.4-8.2)
--- NOTE | 2020-12-13 05:32 | NUR ---
SHIFT SUMMARY PT RESTED THROUGH NIGHT. AO X1, NONSENSICAL. CIWAS RANGING FROM 8-18 - MEDICATED WITH ATIVAN AND LIBRIUM PER EMAR. BILAT WRIST RESTRAINTS STILL NECESSARY PT NOT ORIENTED ENOUGH TO LEAVE HER LINES AND DRAINS ALONE. SATS >90% ON 2-4LNC, TELE NSR/SINUS TACH. HERNANDEZ IN PLACE - DRAINING TO GRAVITY, DELIA CARE PERFORMED. NO BM. NOTED TO HAVE YEASTY FOLDS IN DELIA AREA - MICONAZOLE CREAM ORDERED FOR PT. PT APPEARS VERY DIRTY - LOGISTICS LOSS PREVENTION MANAGER ATTEMPTED TO CLEAN PT FEET, BUT PT BECAME AGITATED. LET PT REST AND CLEANED FEET AT A LATER TIME. DOES NOT APPEAR TO BE IN PAIN. VSS. CALL LIGHT WTIHIN REACH, BED IN LOWEST POSITION. WILL CONTINUE TO MONITOR.
--- NOTE | 2020-12-13 08:31 | NUR ---
Pt is drowsy this morning and still very confused. Her speech is nonsensical and she is having visual hallucinations. She remains clammy and cool. New order obtained to continue wrist restraints from Dr Carter. Douglas is patent and urine is more clear this morning. Iv fluids continue to infuse as ordered. She is resting in bed with frequent monitoring.
--- NOTE | 2020-12-13 15:50 | NUR ---
shift summary pt has been awake at times and alert to self mumbling and then falling back asleep. When awake she does become agitated and starts pulling at her lines and craig. Per Dr Carter her soft wrist restraints remian in place for pt safety and to maintain lines. Her craig is patent draining clear yellow urine. Her Ivs have been patent until this afternoon when the one in her left AC was removed for infiltration. The right wrist IV has poor placement for continuous fluid infusion and the charge nurse is aware of the need for a new line. CIWA have improved since admission. After speaking with her he reported that she was taking "over 100 wipits per day after receiving her stimulus check". He also reported that she has a psych history and was supposed to be seeing a doctor in [place] for possible in patient treatment and med management but this hospital admission has delayed that plan. This was all reported to Dr Carter. VSS and O2 was titrated down to 1 LPM via NC and she has been SATing in the high 90's. Pt is currently resting in bed with eyes closed mumbling at times. Bed alarm is on for pt safety.
[2020-12-14 03:38] LABS: Hematocrit 24.9 % (33.0-51.0); Hemoglobin 7.5 g/dL (11.5-16.0); Mean Corpuscular HGB 27.3 pg (26.0-34.0); Mean Corpuscular HGB Conc 30.1 g/dL (31.5-36.5); Mean Corpuscular Volume 91 fL (80-100); Mean Platelet Volume 9.2 fL (9.1-12.4); Platelet Count 275 K/mm3 (150-400); RDW Coefficient Variation 28.2 % (11.7-14.2); RDW Standard Deviation 90.7 fL (35.1-46.3); Red Blood Cell Count 2.75 M/mm3 (3.80-5.20); White Blood Cell Count 5.26 K/mm3 (4.00-11.30)
[2020-12-14 04:02] LABS: Alanine Aminotransfer (ALT/SGP 12 U/L (12-78); Albumin, Blood 2.2 g/dL (3.4-5.0); Albumin/Globulin Ratio 0.7 (0.8-1.8); Alk Phos 62 U/L (50-136); Anion Gap 4 mmol/L (6-16); Aspartate Aminotrans (AST/SGOT 8 U/L (12-37); Bilirubin, Total 0.2 mg/dL (0.1-1.0); Blood Urea Nitrogen 8 mg/dL (8-24); CO2, Blood 25 mmol/L (21-32); Calcium, Blood 6.6 mg/dL (8.5-10.1); Chloride, Blood 121 mmol/L (98-108); Creatinine, Blood 0.67 mg/dL (0.40-1.00); Globulin, Blood 3.2 g/dL (2.2-4.0); Glomerular Filtration Rate >60 (60-); Glucose, Blood 77 mg/dL (70-99); Potassium, Blood 2.7 mmol/L (3.5-5.5); Sodium, Blood 150 mmol/L (136-145); Total Protein, Blood 5.4 g/dL (6.4-8.2)
--- NOTE | 2020-12-14 05:28 | NUR ---
SHIFT SUMMARY PT DID NOT REST THROUGH NIGHT. PT CIWA'S CONSISTENTLY 17, ATIVAN AND LIBRIUM GIVEN - SEE EMAR. PT VERY DISORIENTED, DOESNT SPEAK IN CLEAR SENTENCES. THOUGHT PROCESS ALL OVER. SATS >90% ON ROOM AIR, TELE - NSR. HERNANDEZ IN PLACE, DELIA CARE PERFORMED. MICONAZOLE OINTMENT PLACED IN DELIA AREA. AM LABS SHOW POTASSIUM 2.7 - K-RUNS INFUSING NOW. NO BM. VSS. CALL LIGHT WTIHIN REACH, BED ALARM ON, BED IN LOWEST POSITION. WILL CONTINUE TO MONITOR.
--- NOTE | 2020-12-14 19:40 | NUR ---
SUMMARY PT REMAINS IN BILATERAL SOFT WRIST RESTRAINTS, CIWA PRECAUTIONS IN PLACE. ATIVAN & LIBRIUM GIVEN PER EMAR. PT IS CONFUSED, DISORIENTED, & HALLUCINATNG. VS REMAIN STABLE, SPO2 >94% ON ROOM AIR, RESP SHALLOW WHILE SLEEPING/UNLABORED. PT IS MORE CLEAR THIS EVENING, SHE WAS ABLE TO TELL ME WHO THE PRESIDENT WAS AND THE MONTH BUT NOTHING ELSE. URINE IS CLEAR YELLOW, HERNANDEZ PATENT, BELOW BLADDER, Q2 TURNS. CALL LIGHT IN REACH. REPORT GIVEN TO AMINA RN. BED ALARM IS ON FOR SAFETY.
--- NOTE | 2020-12-15 06:23 | NUR ---
SHIFT SUMMARY PATIENT IS ALERT AND ORIENTED X SELF, MONTH, AND YEAR, UNABLE TO SAY WHERE SHE IS OR WHY SHE IS IN THE HOSPITAL. MUMBLES AND YELLS OUT AT TIMES. CIWA AT BEGINNING OF NIGHT 19 AND IS NOW 7, MEDICATED PER EMAR. PATIENT BARELY SLEPT ALL NIGHT BUT IS NOW SLEEPING. Q2 HOUR TURNING. BRIEF CHANGES NEEDED. HERNANDEZ DRAINING. SOFT WRIST RESTRAINTS IN PLACE. UPDATED ON PT CONDITION. PROVIDED MOUTH SWABS AND ORAL CARE. PATIENT UNABLE TO SWALLOW PILLS WITH APPLESAUCE VERY WELL, SPIT SOME OUT, STOPPED GIVING PO MEDS DUE TO ASPIRATION RISK. CALLED HOSPITALIST FOR LABS THIS AM. 02 SATS >90% ON RA. VSS, NO ACUTE CHANGES. CALL LIGHT IN REACH.
[2020-12-15 06:28] LABS: BASOPHILS ABSOLUTE AUTO 0.02 K/mm3 (0.00-0.23); BASOPHILS PERCENT AUTO 0 % (0-2); EOSINOPHILS ABSOLUTE AUTO 0.12 K/mm3 (0.00-0.68); EOSINOPHILS PERCENT AUTO 2 % (0-6); Hematocrit 28.6 % (33.0-51.0); Hemoglobin 8.9 g/dL (11.5-16.0); IMMATURE GRAN ABSOLUTE AUTO 0.02 K/mm3 (0.00-0.10); IMMATURE GRAN PERCENT AUTO 0 % (0-1); LYMPHOCYTES PERCENT AUTO 42 % (21-46); MONOCYTES ABSOLUTE AUTO 0.37 K/mm3 (0.16-1.47); MONOCYTES PERCENT AUTO 7 % (4-13); Mean Corpuscular HGB 28.1 pg (26.0-34.0); Mean Corpuscular HGB Conc 31.1 g/dL (31.5-36.5); Mean Corpuscular Volume 90 fL (80-100); NEUTROPHILS ABSOLUTE AUTO 2.54 K/mm3 (1.96-9.15); NEUTROPHILS PERCENT AUTO 48 % (41-73); Platelet Count 279 K/mm3 (150-400); RDW Coefficient Variation 28.1 % (11.7-14.2); RDW Standard Deviation 91.7 fL (35.1-46.3); Red Blood Cell Count 3.17 M/mm3 (3.80-5.20); White Blood Cell Count 5.27 K/mm3 (4.00-11.30)
[2020-12-15 06:42] LABS: Albumin, Blood 2.7 g/dL (3.4-5.0); Anion Gap 6 mmol/L (6-16); Blood Urea Nitrogen 9 mg/dL (8-24); Bun/Creatinine Ratio 11.8 (12.0-20.0); CO2, Blood 26 mmol/L (21-32); Calcium, Blood 8.2 mg/dL (8.5-10.1); Chloride, Blood 112 mmol/L (98-108); Creatinine, Blood 0.76 mg/dL (0.40-1.00); Glomerular Filtration Rate >60 (60-); Glucose, Blood 80 mg/dL (70-99); Phosphorus, Blood 4.1 mg/dL (2.5-4.9); Potassium, Blood 3.5 mmol/L (3.5-5.5); Sodium, Blood 144 mmol/L (136-145)
--- NOTE | 2020-12-15 15:23 | NUR ---
TRANSFER TO MEDICAL FLOOR PT WAS TRANSFERRED TO MEDICAL FLOOR VIA CART ACCOMPANIED BY RN AND CONTINUOUS MINER OPERATOR HELPER. PT WAS IN BILATERAL SOFT WRIST RESTRAINTS WITH HERNANDEZ IN PLACE AND DRAINING AND 1/2NS FLUIDS RUNNING. PT WAS SLEEPING DURING THE TRANSFER, STABLE ON RA, VS STABLE. REPORT GIVEN TO MEDICAL FLOOR RNPRABHA. PT WAS TRANSFERRED AT APPROXIMATELY 1515
--- NOTE | 2020-12-15 18:38 | NUR ---
SHIFT SUMMARY 1600 RECEIVED PT TO RM 344 FROM PCU 9. PT ADMITTED FOR TOXIC METABOLIC ENCEPHALOPATHY. HX OF ETOH AND POLYDRUG ABUSE. PT IS ALERT TO SELF ONLY. HAS BEEN SLEEPING MOST OF THE TIME, BUT DID WAKE FOR A WHILE. SPEECH IS GARBLED AND NONSENSICAL. HERNANDEZ TO GRAVITY; PATENT AND DRAINING CL YELLOW. PT DID BECOME ANXIOUS WHEN IV PUMP STARTED BEEPING AND AGAIN WHEN HARNESS PULLER ATTEMPTED TO OBTAIN BLOOD PRESSURE. PT BECAME FEARFUL, BUT ABLE TO BE CALMED. RESTING QUIETLY AT THIS TIME. BED ALARM ON FOR SAFETY. CALL LT IN REACH.
--- NOTE | 2020-12-16 04:23 | NUR ---
MARRIAGE COUNSELOR MINISTER SUMMARY PT IS A/O X2-3 WITH AUDITORY, VISUAL AND TACTILE HALLUCINATIONS. CIWAS ASSESSED THROUGHOUT THE NIGHT. PT HAS BEEN AGITATED OFF AND ON. ATIVAN AND LIBRIUM GIVEN PER EMAR. PT IS OFTEN FEARFUL AND THINKS SOMEONE IS GOING TO SHOOT HER. VSS. DENIES CHEST PAIN. ROOM AIR, DENIES SOB. BED ALARM ON. CALL LIGHT WITHIN REACH. WILL CONTINUE TO MONITOR.
[2020-12-16 05:57] LABS: Hematocrit 30.1 % (33.0-51.0); Hemoglobin 9.2 g/dL (11.5-16.0); Mean Corpuscular HGB Conc 30.6 g/dL (31.5-36.5); Mean Corpuscular Volume 88 fL (80-100); Mean Platelet Volume 9.1 fL (9.1-12.4); Platelet Count 297 K/mm3 (150-400); RDW Coefficient Variation 27.2 % (11.7-14.2); RDW Standard Deviation 87.2 fL (35.1-46.3); Red Blood Cell Count 3.41 M/mm3 (3.80-5.20); White Blood Cell Count 5.73 K/mm3 (4.00-11.30)
[2020-12-16 06:22] LABS: Alanine Aminotransfer (ALT/SGP 14 U/L (12-78); Albumin, Blood 2.9 g/dL (3.4-5.0); Albumin/Globulin Ratio 0.6 (0.8-1.8); Alk Phos 79 U/L (50-136); Anion Gap 8 mmol/L (6-16); Aspartate Aminotrans (AST/SGOT 10 U/L (12-37); Bilirubin, Total 0.4 mg/dL (0.1-1.0); Blood Urea Nitrogen 7 mg/dL (8-24); Bun/Creatinine Ratio 9.2 (12.0-20.0); CO2, Blood 27 mmol/L (21-32); Calcium, Blood 8.7 mg/dL (8.5-10.1); Chloride, Blood 111 mmol/L (98-108); Creatinine, Blood 0.76 mg/dL (0.40-1.00); Globulin, Blood 4.5 g/dL (2.2-4.0); Glomerular Filtration Rate >60 (60-); Glucose, Blood 77 mg/dL (70-99); Magnesium, Blood 1.7 mg/dL (1.6-2.4); Potassium, Blood 3.4 mmol/L (3.5-5.5); Sodium, Blood 146 mmol/L (136-145); Total Protein, Blood 7.4 g/dL (6.4-8.2)
--- NOTE | 2020-12-16 17:53 | NUR ---
PATIENT ORIENTED TO SELF AND FAMILY ONLY THIS SHIFT. REMAINS IN WRIST RETRAINTS WITH 4 RAILS UP FOR SAFETY AND TO PROTECT LINES. CIWA HIGH 12 THIS SHIFT. LIBRIUM GIVEN X2 TODAY. ORDERS TO ADAT TO FULL LIQUID, HOWEVER PATIENT CONTINUES TO BE TOO DROWSY AND CONFUSED TO ADVANCE PAST CLEARS. HERNANDEZ TO GRAVITY, GOOD OUTPUT. 1/2NS AT 125ML/HR INFUSING. PATIENT VERY PARANOID AT TIMES AND FEARFUL OF STAFF WITH REPOSITIONING. VSS, ON RA.
--- NOTE | 2020-12-17 00:04 | NUR ---
CALL TO HOSPITALIST / MUC[place], LIQUID STOOL RECEIVED ORDER FROM DR. GARCIA TO SEND STOOL FOR C-DIFF TESTING.
[2020-12-17 01:31] LABS: C DIFFICILE DNA NEGATIVE (Negative)
[2020-12-17 05:08] LABS: Hematocrit 30.5 % (33.0-51.0); Hemoglobin 9.5 g/dL (11.5-16.0); Mean Corpuscular HGB 27.5 pg (26.0-34.0); Mean Corpuscular HGB Conc 31.1 g/dL (31.5-36.5); Mean Corpuscular Volume 88 fL (80-100); Mean Platelet Volume 9.4 fL (9.1-12.4); Platelet Count 286 K/mm3 (150-400); Red Blood Cell Count 3.46 M/mm3 (3.80-5.20); White Blood Cell Count 7.05 K/mm3 (4.00-11.30)
--- NOTE | 2020-12-17 05:17 | NUR ---
SHIFT SUMMARY: VSS. AFEB. 02 92% ON RA. CIWA SCORE RANGING FROM 2-14. SLEEPING WELL FOR MOST OF THE NIGHT. C-DIFF NEGATIVE. CALLS OUT, CONFUSED BY THE THE SOUNDS OF OTHER PT'S YELLING. PT BELIEVES SHE IS HEARING HER . REDIRECTS. ASKING FOR BEER, VAPE, AND NITROUS OXIDE, "WHIP-IT". MAINTENANCE FLUIDS INFUSING. MAKING SPECIFIC REQUESTS FOR VARIOUS FOOD ITEMS. IS ABLE TO TELL STAFF WHEN SHE NEEDS TO USE THE BEDPAN. F/C PATENT AND DRAINING TO GRAVITY. TAKING THICKENED FLUIDS WELL WHEN FOLLOWING DYSPHAGIA PRECAUTIONS. WILL CONT TO MONITOR.
[2020-12-17 05:33] LABS: Alanine Aminotransfer (ALT/SGP 13 U/L (12-78); Albumin, Blood 2.9 g/dL (3.4-5.0); Albumin/Globulin Ratio 0.7 (0.8-1.8); Alk Phos 75 U/L (50-136); Anion Gap 6 mmol/L (6-16); Aspartate Aminotrans (AST/SGOT 7 U/L (12-37); Bilirubin, Total 0.3 mg/dL (0.1-1.0); Blood Urea Nitrogen 7 mg/dL (8-24); Bun/Creatinine Ratio 9.5 (12.0-20.0); CO2, Blood 28 mmol/L (21-32); Calcium, Blood 8.4 mg/dL (8.5-10.1); Chloride, Blood 111 mmol/L (98-108); Creatinine, Blood 0.74 mg/dL (0.40-1.00); Globulin, Blood 4.3 g/dL (2.2-4.0); Glomerular Filtration Rate >60 (60-); Glucose, Blood 84 mg/dL (70-99); Potassium, Blood 3.2 mmol/L (3.5-5.5); Sodium, Blood 145 mmol/L (136-145); Total Protein, Blood 7.2 g/dL (6.4-8.2)
--- NOTE | 2020-12-17 16:04 | NUR ---
PATIENT AWAKE, REPORTING SHARP CHEST PAIN AND DIFFICULTY BREATHING. VSS, 93% ON RA. DR. MAN NOTIFIED AND CHEST X-RAY ORDERED. CIWA 12 AT THIS TIME, MEDICATED WITH HALDOL.
--- NOTE | 2020-12-17 17:21 | NUR ---
PATIENT A/OX2, BEDREST AT THIS TIME. WRIST RETRAINTS IN PLACE AND 4 BED RAILS UP. VSS, 93% ON RA LUNGS CLEAR T/O. PATIENT DID REPORT CHEST PAIN THIS EVENING AND BREATHING MORE LABORED. DR. MAN NOTIFIED AND CHEST X-RAY ORDERED. IV FLUIDS CHANGED TO D51/2NS WITH 20K. SPEECH EVAL TODAY AND PATIENT WAS MADE NPO. HALDOL AND LIBRIUM GIVEN, CIWA 12-14 TODAY. FALL PRECATIONS IN PLACE, PATIENT ABLE TO MAKE NEEDS KNOWN. HERNANDEZ TO GRAVITY, ADEQUATE U/O.
--- NOTE | 2020-12-17 19:54 | NUR ---
CALL TO HOSPITALIST / ASKING ABOUT TELE SPOKE W/ DR. OJSEPH. ORDER TO ADD TELE BACK ON DUE TO PT WITHDRAWING, RECEIVING IV HALDOL, AND K+ LOW W/ K+REPLACEMENT IN IV FLUIDS.
[2020-12-18 04:48] LABS: BASOPHILS ABSOLUTE AUTO 0.03 K/mm3 (0.00-0.23); BASOPHILS PERCENT AUTO 0 % (0-2); EOSINOPHILS ABSOLUTE AUTO 0.09 K/mm3 (0.00-0.68); EOSINOPHILS PERCENT AUTO 1 % (0-6); Hematocrit 28.7 % (33.0-51.0); Hemoglobin 9.1 g/dL (11.5-16.0); IMMATURE GRAN ABSOLUTE AUTO 0.02 K/mm3 (0.00-0.10); IMMATURE GRAN PERCENT AUTO 0 % (0-1); LYMPHOCYTES ABSOLUTE AUTO 1.71 K/mm3 (0.84-5.20); LYMPHOCYTES PERCENT AUTO 24 % (21-46); MONOCYTES ABSOLUTE AUTO 0.46 K/mm3 (0.16-1.47); MONOCYTES PERCENT AUTO 7 % (4-13); Mean Corpuscular HGB 27.5 pg (26.0-34.0); Mean Corpuscular HGB Conc 31.7 g/dL (31.5-36.5); Mean Corpuscular Volume 87 fL (80-100); Mean Platelet Volume 9.3 fL (9.1-12.4); NEUTROPHILS ABSOLUTE AUTO 4.72 K/mm3 (1.96-9.15); NEUTROPHILS PERCENT AUTO 67 % (41-73); Platelet Count 257 K/mm3 (150-400); RDW Coefficient Variation 26.7 % (11.7-14.2); RDW Standard Deviation 83.9 fL (35.1-46.3); Red Blood Cell Count 3.31 M/mm3 (3.80-5.20); White Blood Cell Count 7.03 K/mm3 (4.00-11.30)
[2020-12-18 05:21] LABS: Alanine Aminotransfer (ALT/SGP 11 U/L (12-78); Albumin, Blood 2.7 g/dL (3.4-5.0); Albumin/Globulin Ratio 0.6 (0.8-1.8); Alk Phos 71 U/L (50-136); Anion Gap 4 mmol/L (6-16); Aspartate Aminotrans (AST/SGOT 3 U/L (12-37); Bilirubin, Total 0.4 mg/dL (0.1-1.0); Blood Urea Nitrogen 5 mg/dL (8-24); Bun/Creatinine Ratio 7.5 (12.0-20.0); CO2, Blood 27 mmol/L (21-32); Calcium, Blood 8.6 mg/dL (8.5-10.1); Chloride, Blood 115 mmol/L (98-108); Creatinine, Blood 0.67 mg/dL (0.40-1.00); Globulin, Blood 4.4 g/dL (2.2-4.0); Glomerular Filtration Rate >60 (60-); Glucose, Blood 160 mg/dL (70-99); Magnesium, Blood 1.9 mg/dL (1.6-2.4); Potassium, Blood 3.8 mmol/L (3.5-5.5); Sodium, Blood 146 mmol/L (136-145); Total Protein, Blood 7.1 g/dL (6.4-8.2)
--- NOTE | 2020-12-18 06:09 | NUR ---
SHIFT SUMMARY: VSS. AFEB. 02 95-96% ON RA. RHONCHI AUSCULTATED IN R MID LOBE. UNEVEN RESP RISE. COUGH ENCOURAGED, WEAK. RESPS NON-LABORED. CIWA 15 WHILE AWAKE. LIBRIUM GIVEN X 2 TONIGHT. PT FELL ASLEEP AND REMAINED ASLEEP FOR SEVERAL HOURS AFTER EACH DOSE. ANXIOUS ABOUT NPO STATUS AND PERSEVERATES ON NOT BEING ABLE TO EAT. REDIRECTS WELL. AAOX TO SELF AND SURROUNDINGS. OCCASIONALLY NEEDS REORIENTATION. NO HALLUCINATIONS EVIDENT TONIGHT. TELE NSR 67. WRIST RESTRAINTS REMOVED, 4 SIDE RAILS REMAIN UP. NO ATTEMPTS TO PULL LINES OR GET UP OUT OF BED. BED ALARM ON. IV FLUIDS INFUSING PER ORDERS. WCTM.
--- NOTE | 2020-12-18 07:36 | NUR ---
ASSUMED CARE OF PT- BEDSIDE REPORT COMPLETED WITH NIGHT RN. PT AGITATED AFTER SHIFT CHANGE ASKING OR "HELP" PT STILL GROGGY AND UNABLE TO SPECIFY HER NEEDS AT THIS TIME. PT DID STATE A 10/10 HEADCHE WHEN STAFF ASKED ABOUT IT. WHEN ASKED SHE STATED HER WHOLE BODY FEELS NUMB AND ITCHY, SHE HAS PALPABLE SWEATS AND TREMORS, BREATHING IS IRREGULAR BUT DOES NOT SEEM TO BE DISTRESSED AT THIS TIME. PT WAS MEDICATED PRIOR TO SHIFT CHNGE WITH IV ATIVAN.
--- NOTE | 2020-12-18 20:05 | NUR ---
SHIFT SUMMARY- PT HAS BECOME MORE ALERT T/O THE SHIFT SHE DOES CRY OUT, ND HER CIWA SCORES HAVE BEEN IN THE 14-18 RANGE. PT SEEMS TO RESPOND WELL TO PO LIBRIUM. SPOKE TO DR CARMONA THIS EVENING AND ORDER TO DC DAVID WAS RECIEVED. PASSED ON TO NIGHT RN IN BEDSIDE REPORT. PT HAD AN EPISODE ONCE TODAY WHERE SHE WOKE AND THOUGHT ALL OF HER ORGANS HAD BEEN HARVESTED. PT WAS CALMED AND MEDICATED WITH LIBRIUM. NO S&S OF DISTRESS NOTED AT THE TIME OF SHIFT CHANGE. PASSED ALL ON TO NIGHT RN IN BEDSIDE REPORT.
--- NOTE | 2020-12-19 00:10 | NUR ---
DAVID WEBER PER ORDERS
--- NOTE | 2020-12-19 04:07 | NUR ---
SHIFT SUMMARY PATIENT CIWA SCORE 10-11. PO LIBRIUM 50 MG AND IV ATIVAN 2 MG GIVEN PER EMAR X THREE THIS SHIFT. AXOX 3 WITH CONFUSION AND SLOW TO RESPOND. BEDREST AND NPO. TAKES MEDS CRUSHED IN APPLESAUCE. POWERGLIDE GIO INTACT. KCL 20 MEQ INFUSING AT 125mL/HR. HERNANDEZ DC PER ORDER. MACHINE TOOL TECHNOLOGY INSTRUCTOR REPORTS NSR 60'S. TELE DC THIS SHIFT. VSS/AFEBRILE. DENIES PAIN, SOB, AND N/V. PATIENT FOCUSED ON CALLING SPOUSE BUT CELL PHONE NOT WORKING. CALL LIGHT IN REACH. BED IN LOWEST POSITION. WILL CONTINUE TO MONITOR UNTIL DAY SHIFT NURSE ASSUMES CARE.
[2020-12-19 05:53] LABS: Albumin, Blood 2.7 g/dL (3.4-5.0); Anion Gap 4 mmol/L (6-16); Blood Urea Nitrogen 6 mg/dL (8-24); Bun/Creatinine Ratio 8.1 (12.0-20.0); CO2, Blood 28 mmol/L (21-32); Calcium, Blood 8.7 mg/dL (8.5-10.1); Chloride, Blood 117 mmol/L (98-108); Creatinine, Blood 0.74 mg/dL (0.40-1.00); Glomerular Filtration Rate >60 (60-); Glucose, Blood 128 mg/dL (70-99); Phosphorus, Blood 3.4 mg/dL (2.5-4.9); Potassium, Blood 3.8 mmol/L (3.5-5.5); Sodium, Blood 149 mmol/L (136-145)
--- NOTE | 2020-12-19 18:31 | NUR ---
SHIFT SUMMARY: NO ACUTE CHANGES TO REPORT THIS SHIFT. PT A&O X3; COOPERATIVE WITH CARE. CIWA 10-11 THIS SHIFT; HEADACHE, ANXIETY, CLUDING OF SENSORIUM, ANXIETY CONTINUING. DIET ADVANCED TO SOFT THIS SHIFT; PT TOLERATING WELL; FEEDER R/T TREMORS. ABX & FLUIDS CONTINUING. WCTM.
--- NOTE | 2020-12-20 04:18 | NUR ---
SHIFT SUMMARY PATIENT HAD NO ACUTE CHANGES OBSERVED. CIWA: 8-9 WITH TREMORS/HEADACHE. AXOX 3 AND SLOW TO RESPOND. BEDREST. VSS/AFEBRILE. DENIES PAIN, SOB, AND N/V. POWERGLIDE GIO INTACT. FLUIDS DC. PATIENT LESS ANXIOUS THIS SHIFT AND ABLE TO SLEEP T/O SHIFT. CALL LIGHT IN REACH. BED IN LOWEST POSITION. WILL CONTINUE TO MONITOR UNTIL DAY SHIFT NURSE ASSUMES CARE.
[2020-12-20 05:33] LABS: Albumin, Blood 2.8 g/dL (3.4-5.0); Anion Gap 6 mmol/L (6-16); Blood Urea Nitrogen 11 mg/dL (8-24); Bun/Creatinine Ratio 13.6 (12.0-20.0); CO2, Blood 26 mmol/L (21-32); Calcium, Blood 9.1 mg/dL (8.5-10.1); Chloride, Blood 113 mmol/L (98-108); Creatinine, Blood 0.81 mg/dL (0.40-1.00); Glomerular Filtration Rate >60 (60-); Glucose, Blood 99 mg/dL (70-99); Phosphorus, Blood 5.3 mg/dL (2.5-4.9); Potassium, Blood 3.7 mmol/L (3.5-5.5); Sodium, Blood 145 mmol/L (136-145)
[2020-12-20] MEDS ORDERED: BUDE.25 INH (16:42)
[2020-12-20] MEDS ORDERED: IBUP600 PO (16:43)
[2020-12-20] MEDS ORDERED: NITR100CA PO (16:51)
--- NOTE | 2020-12-20 19:28 | NUR ---
SHIFT SUMMARY: NO ACUTE CHANGES TO REPORT THIS SHIFT. PT A&O; CALM AND COOPERATIVE WITH CARE. SLEEPING T/O SHIFT. HOME DOSE ADDERALL STARTED THIS SHIFT; PT DECREAING LETHARGY. NO C/O PAIN THIS SHIFT. CIWA STABLE @ 8 THIS SHIFT. IV ABX CONTINUING. REPORT GIVEN TO ONCOMING RN.
--- NOTE | 2020-12-21 03:32 | NUR ---
SHIFT SUMMARY PATIENT HAD NO ACUTE CHANGES. CIWA'S AVERAGE 6 WITH REDUCED ANXIETY AND CAZARES. AXOX 3 AND BEDREST. TREMORS PRESENT AND LESS LETHARGIC. VSS/AFEBRILE. POWERGLIDE GIO INTACT. DENIES PAIN, SOB, AND N/V. ON ROOM AIR. COOPERATIVE WITH CARE. SLEPT SECOND PART OF SHIFT. CALL LIGHT IN REACH. BED IN LOWEST POSITION. WILL CONTINUE TO MONITOR UNTIL DAY SHIFT NURSE ASSUMES CARE.
[2020-12-21 05:29] LABS: Albumin, Blood 3.1 g/dL (3.4-5.0); Anion Gap 6 mmol/L (6-16); Blood Urea Nitrogen 16 mg/dL (8-24); Bun/Creatinine Ratio 18.1 (12.0-20.0); CO2, Blood 26 mmol/L (21-32); Calcium, Blood 9.6 mg/dL (8.5-10.1); Chloride, Blood 111 mmol/L (98-108); Creatinine, Blood 0.88 mg/dL (0.40-1.00); Glomerular Filtration Rate >60 (60-); Glucose, Blood 95 mg/dL (70-99); Phosphorus, Blood 4.3 mg/dL (2.5-4.9); Potassium, Blood 3.9 mmol/L (3.5-5.5); Sodium, Blood 143 mmol/L (136-145)
--- NOTE | 2020-12-21 17:57 | NUR ---
SHIFT SUMMARY PT IS AO AND FORGETFUL. PT DENIES PAIN, N/V, SOB. PT REMAINS ON BEDREST DUE TO POOR STRENGTH. PT WORKED WITH PT/OT AND DID NOT SIT AT EDGE OF BED FOR LONG. APPETITE IS MODERATE. NO PROCEDURES DONE. PLAN IS TO IMPROVE STRENGTH AND MENTATION. PT'S IN TO VISIT THIS JO ANN. PT IS IN BED, CALL LIGHT IN REACH, BED IN LOW POSITION.
--- NOTE | 2020-12-22 04:52 | NUR ---
SUMMARY: PT A/OX3 BUT IS CONFUSED TO DATE/TIME AND HAS BEEN HAVING BOTH VISUAL AND AUDITORY HALLUCINATIONS T/O NOCTE. SHE IS FORGETFULL, IMPULSIVE AND THROWS LEGS OVER EOB SO BED ALARM IS ON FOR FALL RISK. SHE'S ABLE TO SPECIFY NEEDS BUT MAKES SOME BIZARRE REQUESTS AND IS FIXATED ON "CALLING ", "CHORES" AND "PAYING BILLS". PT IS AWARE OF HALLUCINATIONS BUT REMAINS FEARFUL BECAUSE THEY'RE VIOLENT IN NATURE (IE. "PEOPLE ELECTROCUTING HER THROUGH THE FLOOR" AND "TRYING TO KILL HER"). SHE APPEARS VERY DROWSY AND DELIRIOUS BUT HASN'T SLEPT DESPITE ATTEMPTS OF ENCOURAGING REST. PT IS VERY WEAK, POSSESSING ONLY GROSS MOVEMENT OF EXT'S AND REQ'S FEEDER/MEDICATION ASSIST D/T LACKING DEXTERITY AND FINE MOTOR FUNCTION. CIWAS REMAIN 4-5. SHE'S DENIED PAIN/NAUSEA AND TOLERATED PILLS IN APPLESAUCE. NO ACUTE CHANGES, VSS/AFEBRILE. WCTM AND REPORT TO DAY RN.
[2020-12-22 05:16] LABS: Hematocrit 34.3 % (33.0-51.0); Hemoglobin 10.7 g/dL (11.5-16.0); Mean Corpuscular HGB 27.4 pg (26.0-34.0); Mean Corpuscular HGB Conc 31.2 g/dL (31.5-36.5); Mean Corpuscular Volume 88 fL (80-100); Platelet Count 325 K/mm3 (150-400); RDW Standard Deviation 80.4 fL (35.1-46.3); White Blood Cell Count 9.57 K/mm3 (4.00-11.30)
[2020-12-22 05:50] LABS: Albumin, Blood 3.3 g/dL (3.4-5.0); Anion Gap 7 mmol/L (6-16); Blood Urea Nitrogen 20 mg/dL (8-24); Bun/Creatinine Ratio 21.6 (12.0-20.0); CO2, Blood 27 mmol/L (21-32); Calcium, Blood 9.8 mg/dL (8.5-10.1); Chloride, Blood 107 mmol/L (98-108); Creatinine, Blood 0.93 mg/dL (0.40-1.00); Glomerular Filtration Rate >60 (60-); Glucose, Blood 87 mg/dL (70-99); Phosphorus, Blood 4.3 mg/dL (2.5-4.9); Potassium, Blood 3.6 mmol/L (3.5-5.5); Sodium, Blood 141 mmol/L (136-145)
--- NOTE | 2020-12-22 14:56 | NUR ---
PATIENT HAS BEEN ALERT AND ORIENTED TO SELF AND TIME. HAS VISUAL AND AUDITORY HALLUCINATIONS AND SOME PARANOIA; REQUIRES REDIRECTION AT TIMES. VITALS STABLE. NO ACUTE CHANGES TO REPORT OF AT THIS TIME. CALL LIGHT WITHIN REACH.
--- NOTE | 2020-12-22 21:45 | NUR ---
SPO2 80'S% ON 2L O2. TITRATED O2 TO 3.5L TO MAINTAIN SPO2 >89%. PT APPEARS TACHYPNEIC AND SOB W/SHALLOW IRREGULAR RESPS. SHE CONT'S DROWSY, CONFUSED W/AMS AND IS HAVING DIFFICULTY COMMUNICATING W/STAFF. SPASITICITY OF EXT'S PERSISTS. SHE APPEARS UNCOMFORTABLE AND POSSIBLY IN PAIN BUT PT UNSAFE TO TAKE PO MEDS AT THIS TIME. LACTIC ACID TRENDED UPWARD TO 4.8 (WAS 2.2) AND PT HAD X1 LR BOLUS IN ER. SWAPNA NOTIFIED W/NEW ORDERS RECIEVED: BD PROTOCOL, CONT BIOX, STAT ABG, 1L NS BOLUS, FENTANYL 25-50MCG IV Q2P RX'D AND SHE INSTRUCTED TO HOLD CARDIAC MEDS D/T SEPSIS. WILL MEDICATED WHEN AVAILABLE FROM PHARMACY. RT AWARE OF NEW ORDERS.
--- NOTE | 2020-12-23 01:16 | NUR ---
CAME TO SEE PT AND ADVISED THAT STAFF CLARIFY CODE STATUS. CALLIE STATED DNR W/LIMITED INTERVENTIONS BUT PT WAS MADE FULL CODE IN ER UPON DISCUSSION W/PATIENT'S . HER NIECE (SHAILA) IS LISTED POA AND HEALTHCARE PAPERBOARD BOX MAKER UPON ADVANCE DIRECTIVE. THIS RN ATTEMPTED TO CLARIFY CODE STATUS D/T IT DETERMINING DIRECTION OF CARE. STATED PT WOULD NEED TO BE TRANSFERRED TO ICU IF PT IS TO REMAIN FULL CODE AND CURRENT TREATMENT W/COMFORT WOULD BE PROVIDED IF PT IS MADE DNR. SHAILA INTENDS TO CALL PT'S DAUGHTER (SUMAN) WHO LIVES IN [place] FOR CODE STATUS INSTRUCTION. SHE STATED SHE WANTS TO "HONOR SUMAN AND HER NIECE'S WISHES". THIS RN IS AWAITING ADVICE AT THIS TIME.
--- NOTE | 2020-12-23 04:17 | NUR ---
SUMMARY: PT ORIENTED TO SELF, SURROUNDINGS, FAMILY AND YEAR. SHE CONT'S TO HAVE INTERMITTENT AUDITORY AND VISUAL HALLUCINTATIONS AND IS OBSERVED TALKING TO SELF IN ROOM. PT IS AWARE OF HALLUCINATIONS BUT NEEDS REDIRECTION AT TIMES TO RECALL THEY'RE NOT REAL. SHE'S INCONTINENT W/ATTENDS CHANGED PRN. PT REMAINS VERY WEAK AND LACKS COORDINATION AND FINE MOTOR MOVEMENT OF EXT'S. REPOSITIONING ASSISTANCE PROVIDED. NO ACUTE CHANGES, VSS/AFEBRILE. WCTM AND REPORT TO DAY RN.
--- NOTE | 2020-12-23 18:19 | NUR ---
SHIFT SUMMARY PATIENT DENIES PAIN. NAUSEA, AND SHORTNESS OF BREATH. PATIENT WORKED WITH PT TODAY, ABLE TO SIT UP ON SIDE OF BED LONGER TODAY. PATIENT EATING AND DRINKING WELL. PATIENT STRAIGHT CATHED X1 FOR RETENTION TODAY. NEW ORDERS TO BLADDER SCAN Q6, AND STRAIGHT CATH OVER 400. VISITING THIS EVENING. PLEASANT AND COOPERATIVE WITH CARE.
--- NOTE | 2020-12-24 05:59 | NUR ---
SHIFT SUMMARY PATIENT ALERT AND ORIENTED X 2-3. HAS OCCASIONAL PARANOIA AND HALLUCINATIONS ACCOMPANIED BY LABILE EMOTIONS. PATIENT BLADDER SCANNED TWICE OVERNIGHT AND REQUIRED TO BE STRAIGHT CATHED ONCE. PATIENT SLEPT WELL OTHERWISE. POWERGLIDE PATENT AND FLUSHED. BED IN LOWEST POSITION WITH WHEELS LOCKED AND ALARM ON. CALL LIGHT WITHIN REACH. REPORT GIVEN TO ONCOMING RN.
--- NOTE | 2020-12-24 12:53 | NUR ---
PT BLADDER SCANNED AT 1221 AND HAD 404MLS. PT WAS STRAIGHT CATHED AND 450 ML OUTPUT. PT TOLERATED WELL.
--- NOTE | 2020-12-24 17:08 | NUR ---
AOX3 AND COOPERATIVE OF CARE. PT SEEMED TO BE LESS CONFUSED IN THE AM. PT HAS HAD AN INCREASE IN MILD HALLUCINATIONS IN THE AFTERNOON. PT IS WORKING WITH HER NURSES AND SHOWS NO SIGN OF DISTRESS AT THIS TIME. PT WOULD FALL ASLEEP IN AWKWARD POSITIONS THROUGHOUT THE DAY. PT CONTINUES TO HAVE RETENTION AND HAS BEEN STRAIGHT BLADDER SCANNED AND STRAIGHT CATHED PER EMAR. WILL CONTINUE TO MONITOR BED ALARM IS IN PLACE.
--- NOTE | 2020-12-25 06:31 | NUR ---
SHIFT SUMMARY PATIENT ALERT AND ORIENTED X2. HAD NO COMPLAINTS OF PAIN OR SHORTNESS OF BREATH. SLEPT WELL OVERNIGHT. PATIENT STILL NOT SPONTANIOUSLY VOIDING AND REQUIRED TO BE STRAIGHT CATHED ONCE THIS MORNING. POWERGLIDE PATENT AND FLUSHED. BED IN LOWEST POSITION WITH WHEELS LOCKED AND ALARM ON. CALL LIGHT WITHIN REACH. REPORT GIVEN TO ONCOMING RN.
--- NOTE | 2020-12-25 17:16 | NUR ---
PT AOx3. PT is pleasant and cooperate to care. Pt occasionally expresses anxiety and states she needs to leave to go take care of tasks. In afternoon PT progressively experienced hallucinations and paranoia before return to baseline. PT Remains unable to void. Bladder scanned once in afternoon at 154 mL. PT displays weakness in upper extremities and continues to require assistance with feeding. PT was left in room calm with bed lowered and call alarm at her side. Will continue to monitor
--- NOTE | 2020-12-25 17:42 | NUR ---
STUDENT ENTERED SHIFT SUMMARY. PLEASE REFER TO THIS NOTE.
--- NOTE | 2020-12-26 06:39 | NUR ---
SHIFT SUMMARY PT HAS BEEN A&O T/O MOST OF SHIFT W/PERIODS OF CONFUSION, ANXIETY & PARANOIA; STRAIGHT CATH X1 THIS SHIFT AFTER 750ML BLADDER SCAN AND FAILED ATTEMPT TO VOID, NO OTHER CHANGES, PT SLEPT T/O THE NIGHT HAS BEEN AWAKE WATCHING TV SINCE 329, CALL LIGHT IN REACH, BED ALARM ACTIVE, WILL CONT TO MONITOR UNTIL REPORT GIVEN TO DAY RN.
--- NOTE | 2020-12-26 18:40 | NUR ---
SHIFT SUMMARY PATIENT ALERT TO SELF AND FAMILY THIS SHIFT. PATIENT COOPERATIVE WITH CARE THIS SHIFT. PATIENT CONTINUES TO BE ON BEDREST. PATIENT EXPERIENCED INCREASED WORK OF BREATHING THIS AFTERNOON. DR NOTIFIED. DR STATED THAT PATIENT HAS BEEN EXPERIENCING THIS SINCE ADMISSION. PATIENT UNABLE TO VOID THIS SHIFT. BLADDER SCAN OF 450 OBTAINED. PATIENT STRAIGHT CATHED PER ORDER FOR > 400. PATIENT CURRENTLY SITTING UP IN BED.
[2020-12-27 05:30] LABS: Hematocrit 36.3 % (33.0-51.0); Mean Corpuscular HGB 27.2 pg (26.0-34.0); Mean Corpuscular HGB Conc 30.3 g/dL (31.5-36.5); Mean Corpuscular Volume 90 fL (80-100); Mean Platelet Volume 10.8 fL (9.1-12.4); Platelet Count 363 K/mm3 (150-400); RDW Coefficient Variation 22.8 % (11.7-14.2); RDW Standard Deviation 76.4 fL (35.1-46.3); Red Blood Cell Count 4.05 M/mm3 (3.80-5.20); White Blood Cell Count 13.21 K/mm3 (4.00-11.30)
--- NOTE | 2020-12-27 05:39 | NUR ---
SHIFT SUMMARY A&O THIS SHIFT, NO ACUTE CHANGES, NO C/O ANY KIND, SLEPT T/O THE NIGHT, COOPERATIVE W/CARE, STRAIGHT CATH 1X PER PRN ORDER (550MLS), SLEEPING AT THIS TIME, CALL LIGHT IN REACH, BED ALARM ACTIVE, WILL CONT TO MONITOR UNTIL REPORT GIVEN TO DAY RN.
[2020-12-27 05:55] LABS: Alanine Aminotransfer (ALT/SGP 17 U/L (12-78); Albumin, Blood 3.2 g/dL (3.4-5.0); Albumin/Globulin Ratio 0.7 (0.8-1.8); Alk Phos 80 U/L (50-136); Anion Gap 2 mmol/L (6-16); Aspartate Aminotrans (AST/SGOT 10 U/L (12-37); Bilirubin, Total 0.2 mg/dL (0.1-1.0); Blood Urea Nitrogen 21 mg/dL (8-24); Bun/Creatinine Ratio 21.5 (12.0-20.0); CO2, Blood 31 mmol/L (21-32); Calcium, Blood 9.8 mg/dL (8.5-10.1); Chloride, Blood 106 mmol/L (98-108); Creatinine, Blood 0.98 mg/dL (0.40-1.00); Globulin, Blood 4.7 g/dL (2.2-4.0); Glomerular Filtration Rate >60 (60-); Glucose, Blood 79 mg/dL (70-99); Potassium, Blood 3.9 mmol/L (3.5-5.5); Sodium, Blood 139 mmol/L (136-145); Total Protein, Blood 7.9 g/dL (6.4-8.2)
--- NOTE | 2020-12-27 18:14 | NUR ---
SHIFT SUMMARY PATIENT ALERT, ORIENTED, YET FORGETFUL THIS SHIFT. PATIENT SLEPT THROUGH MUCH OF THIS AM. PATIENT REMAINS ON BEDREST DUE TO WEAKNESS AND INABILITY TO CONTROL LOWER EXTREMETIES. PATIENT ABLE TO MAKE NEEDS KNOWN. BLADDER SCAN THIS EVENING > 500 ML, REQUIRING STRAIGHT CATH. PATIENT CURRENTLY SITTING UP IN BED WATCHING TELEVISION.
--- NOTE | 2020-12-28 04:59 | NUR ---
SHIFT SUMMARY NO ACUTE CHANGES THIS SHIFT, NO C/O ANY KIND, CONTINUED PRN STRAIGHT CATH- PT ATTEMPTED BUT REMAINS UNABLE TO VOID, SLEPT T/O THE NIGHT & SLEEPING AT THIS TIME, BED ALARM ACTIVE, WILL CONT TO MONITOR UNTIL REPORT GIVEN TO DAY RN.
[2020-12-28 05:14] LABS: Hematocrit 34.9 % (33.0-51.0); Hemoglobin 10.7 g/dL (11.5-16.0); Mean Corpuscular HGB 27.4 pg (26.0-34.0); Mean Corpuscular HGB Conc 30.7 g/dL (31.5-36.5); Mean Corpuscular Volume 89 fL (80-100); Mean Platelet Volume 10.5 fL (9.1-12.4); Platelet Count 344 K/mm3 (150-400); RDW Coefficient Variation 22.3 % (11.7-14.2); RDW Standard Deviation 74.2 fL (35.1-46.3); Red Blood Cell Count 3.91 M/mm3 (3.80-5.20); White Blood Cell Count 10.95 K/mm3 (4.00-11.30)
[2020-12-28 05:47] LABS: Anion Gap 3 mmol/L (6-16); Blood Urea Nitrogen 17 mg/dL (8-24); Bun/Creatinine Ratio 19.8 (12.0-20.0); CO2, Blood 30 mmol/L (21-32); Calcium, Blood 9.5 mg/dL (8.5-10.1); Chloride, Blood 107 mmol/L (98-108); Creatinine, Blood 0.86 mg/dL (0.40-1.00); Glomerular Filtration Rate >60 (60-); Glucose, Blood 83 mg/dL (70-99); Potassium, Blood 3.6 mmol/L (3.5-5.5); Sodium, Blood 140 mmol/L (136-145)
[2020-12-28 06:43] LABS: Lithium 1.73 mmol/L (0.60-1.20)
--- NOTE | 2020-12-28 19:36 | NUR ---
BREATHING PATTERN: 14:30: LATE ENTRY PATIENT REPORTED SOME SOB. PATIENT UTILIZING ABDOMINAL MUSCLES TO BREATH. PATIENT WAS 88-90% ON RA. PATIENT WAS 91% ON 1L VIA NC. PATIENT STABILIZED ON 2L AT 95%. ASSISTED PATIENT TO FULL UPRIGHT SITTING POSITION. PT IN THE ROOM AND ASSISTING WITH THE PATIENT. PROVIDED REASSURANCE AND DISCUSSED ANXIETY. NOTIFIED DR. MAN. NO NEW ORDERS AT THIS TIME. RT ABLE TO ROUND ON THE PATIENT. DISCUSSED POTENTIAL INTERVENTIONS IF NEEDED. PATIENT SELF IDENTIFIED THAT ANXIETY IS A TRIGGER FOR FEELING SOB. PROVIDED FURTHER REASSURANCE AND THERAPEUTIC COMMUNICATION. PATIENT REPORTED FEELING BETTER AND LESS SOB. PATIENT CONTINUED TO BE AT BASELINE FOR ORIENTATION AND ALERTNESS (SOME DROWSINESS, BUT A AND O X 3-4).
--- NOTE | 2020-12-28 19:40 | NUR ---
END OF SHIFT SUMMARY: PATIENT REPORTED NAUSEA AND ABDOMINAL DISCOMFORT THIS MORNING AND EARLY AFTERNOON. PATIENT ABLE TO HAVE MULTIPLE BOWEL MOVEMENTS THAT SHE REPORTED HELPED. MEDICATED FOR NAUSEA. DR. MAN AWARE. PATIENT REPORTED FEELING MUCH BETTER THIS AFTERNOON AND THAT THE NAUSEA HAD RESOLVED. PATIENT CONTINUES TO HAVE A VERY MINIMAL APPETITE. PATIENT WORKED WITH PT AND OT. PATIENT IS FEELING ENCOURAGED TO CONTINUE TO WORK WITH THERAPIES TO IMPROVE. PATIENT HAS SOB AT TIMES. (SEE NURSES NOTE). PATIENT SELF IDENTIFIES THAT ANXIETY PLAYS A MAJOR ROLE IN HER FEELING SOB. SHE IS ABLE TO BE DISTRACTED AND CALM HERSELF DOWN. THROUGHOUT THE DAY CONTINUED TO ENCOURAGE PATIENT TO INCREASE HER INTAKE AND STRENGTH. PATIENT IS AGREEABLE, BUT CONTINUES TO CONSUME ONLY SMALL AMOUNTS OF PO INTAKE.
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
--- NOTE | 2020-12-29 05:48 | NUR ---
SHIFT SUMMARY: AOX2, PLEASANTLY CONFUSED. HAS HULLUCINATIONS AND FEARS OF BEING HURT. SHE THOUGHT SHE WAS IN SKILLED NURSING ROW WAITING FOR US TO KILL HER. SHE IS AWARE OF HER HULLUCINATIONS BUT HAS HARD TIME DETERMINING REAL OR NOT. HANDS ARE CONTRACTED BUT SHE IS ABLE TO OPEN THEM AT TIMES. SEVERE SOB WHEN LAYING FLAT THAT USES ACCESSORY MUSCLES. RESOLVES WHEN SHE SITS UP. O2 2L NC IN PLACE. GROSS MOTER MOVEMENTS IN BUE AND BLE. ANURIA, BLADDER SCAN 221 AND 443. STRAIGHT CATH PERFORMED THIS AM WITH 500CC OUTPUT. URINE IS CLOUDY DARK ORANGE. ENCOURAGED FLUID INTAKE. GAVE SIPPY CUP TO HELP PREVENT HER FROM SPILLING IT ON HERSELF. IVF CONTINUE TO INFUSE. ANTIBOTICS GIVEN, MEDS IN APPLESAUCE. SLEPT OFF AND ON. NO OTHER CHANGES TO REPORT. CALL LIGHT IN REACH, BED ALARM IS ON.
--- NOTE | 2020-12-29 16:33 | NUR ---
SHIFT SUMMARY PT HAS SLEPT MOST OF SHIFT TODAY. EATING ONLY BITES AT MEALS; NEEDS FEEDING ASSIST. C/O NAUSEA OFF AND ON BRIEFLY TODAY. NO EMESIS. CONTRACTURE TO BUE'S AND STARTING IN FEET WELL. P/T RECOMMENDED HEEL PROTECTORS TO HELP WITH CONTRATURES TO FEET; PLACED PER RECOMMENDATIONS. PT HAS REMAINED CALM MOST OF THE DAY. RESPIRATIONS INCREASE BREIFLY WHEN HOB IS LOWERED FOR CARE. RESOLVES QUICKLY WHEN SITTING UPRIGHT. PT IS VERY WEAK AND DECONDITIONED. TAKEN DOWN FOR MRI TODAY, [facility]IA [facility]. MEDS TAKEN WHOLE IN APPLESAUCE. 1ST BLADDER SCAN THIS SHIFT SHOWING 202cc. VISITOR IN TO SEE PT FOR A WHILE THIS AFTERNOON. RESTING QUIETLY AT THIS TIME. CALL LT IN REACH.
--- NOTE | 2020-12-29 19:15 | NUR ---
DR MAN TO AFTER MRI RESULTS. PT TO BE STARTED ON HEPARIN DRIP. LAB HERE FOR INITIAL INR/PTT, BUT UNABLE TO DRAW BLOOD FROM PT. 3 LAB TECHS ATTEMPTED AND ALL UNSUCCESSFUL. CHRG RN NOTIFIED AND THEN DR MAN. NO ONE AVAILABLE TO PLACE PICC LINE AT THIS TIME. NEXT LAB TECHS TO COME IN AM. STAT, FULL DOSE OF LOVENOX ORDERED AND TO BE GIVEN, PER DR MAN. REPORT GIVEN TO ONCOMING RN.
--- NOTE | 2020-12-29 19:26 | NUR ---
ASSUMPTION OF CARE. AOX1, DROWSY. PUPILS REACTIVE. RIGHT SIDE WEAKNESS, IS ABLE TO INSTRUCTOR CREELER ON THE LEFT BUT RIGHT SHE HAS TO FOCUS IN ORDER TO MOVE FINGERS. WEAK BILATERALLY IN THE BLE. NO DROOPING OF THE FACE. SHE IS VERY FATIQUED AND SLEEPING ALOT. GAVE LOVENOX INJECTION PER ORDERS. ATTEMPTED TO DRAW OUT OF THE LINE WITH NO SUCCESS. RT IN THE ROOM, STARTED BREATHING TREATMENTS. DENIED PAIN. IV INFUSING AT TKO. CALL LIGHT IS IN REACH, BED ALARM IS ON.
--- NOTE | 2020-12-30 04:55 | NUR ---
SHIFT SUMMARY: JAMIL HAS INCREASE IN FATIQUE, SLEEPING MORE THIS SHIFT, DOES WAKE UP TO NAME. AOX1-2. 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 HAS TO FOCUS ONE HAND AT A TIME, ABLE TO PERFORM FINE MOTERS SKILLS WITH FINGERS WITH SOME DIFFICULTY. WRIST ARE CONTORTED, IMPROVEING ON GRIPPING CUPS. WEAK BLE, LITTLE GROSS MOTER SKILLS. NO DROOPING OF THE FACE. PUPILS STILL REACTIVE. BREATHING HAS IMPROVED. DOWN TO 1 LITER OF O2 SATS MAINTAINING 90-92%. ON RA SHE WAS 89-91%. STILL USES ACCESSORY MUCLES WHEN SHE LAYS DOWN. POOR FLUID INTAKE. WAS ABLE TO VOID X1 500CC OUT. STRAIGHT CATH PERFORMED X1 WITH 450 OUT, PVR 183. IVF TKO. POWERGLIDE STILL NOT DRAWING, AWAITING LAB TO DRAW THIS AM. LOVONOX GIVEN FOR THROMBOSIS. MEDS PER APPLESAUCE. WILL CONTINUE TO MONITOR. CALL LIGHT IN REACH, BED ALARM ON.
[2020-12-30 05:22] LABS: BASOPHILS ABSOLUTE AUTO 0.06 K/mm3 (0.00-0.23); BASOPHILS PERCENT AUTO 1 % (0-2); EOSINOPHILS ABSOLUTE AUTO 0.28 K/mm3 (0.00-0.68); EOSINOPHILS PERCENT AUTO 4 % (0-6); Hematocrit 35.6 % (33.0-51.0); IMMATURE GRAN ABSOLUTE AUTO 0.05 K/mm3 (0.00-0.10); IMMATURE GRAN PERCENT AUTO 1 % (0-1); LYMPHOCYTES PERCENT AUTO 33 % (21-46); MONOCYTES ABSOLUTE AUTO 0.39 K/mm3 (0.16-1.47); MONOCYTES PERCENT AUTO 5 % (4-13); Mean Corpuscular HGB 27.4 pg (26.0-34.0); Mean Corpuscular HGB Conc 30.9 g/dL (31.5-36.5); Mean Corpuscular Volume 89 fL (80-100); Mean Platelet Volume 10.9 fL (9.1-12.4); NEUTROPHILS ABSOLUTE AUTO 4.45 K/mm3 (1.96-9.15); NEUTROPHILS PERCENT AUTO 57 % (41-73); Platelet Count 344 K/mm3 (150-400); RDW Coefficient Variation 21.6 % (11.7-14.2); RDW Standard Deviation 72.2 fL (35.1-46.3); Red Blood Cell Count 4.01 M/mm3 (3.80-5.20); White Blood Cell Count 7.83 K/mm3 (4.00-11.30)
[2020-12-30 05:36] LABS: International Normalized Ratio 1.1; Prothrombin Time Results 11.8 Sec (9.7-11.5)
[2020-12-30 05:52] LABS: Alanine Aminotransfer (ALT/SGP 17 U/L (12-78); Albumin/Globulin Ratio 0.6 (0.8-1.8); Alk Phos 95 U/L (50-136); Anion Gap 3 mmol/L (6-16); Aspartate Aminotrans (AST/SGOT 7 U/L (12-37); Bilirubin, Total 0.3 mg/dL (0.1-1.0); Blood Urea Nitrogen 9 mg/dL (8-24); Bun/Creatinine Ratio 10.5 (12.0-20.0); CO2, Blood 31 mmol/L (21-32); Calcium, Blood 9.3 mg/dL (8.5-10.1); Chloride, Blood 109 mmol/L (98-108); Creatinine, Blood 0.86 mg/dL (0.40-1.00); Globulin, Blood 4.7 g/dL (2.2-4.0); Glomerular Filtration Rate >60 (60-); Glucose, Blood 86 mg/dL (70-99); Potassium, Blood 3.6 mmol/L (3.5-5.5); Sodium, Blood 143 mmol/L (136-145); Total Protein, Blood 7.7 g/dL (6.4-8.2)
[2020-12-30 08:09] LABS: METHYLMALONIC ACID, SERUM 23796 nmol/L (0-378)
[2020-12-30 13:08] LABS: VITAMIN E(GAMMA TOCOPHEROL) 0.4 mg/L (0.5-5.5)
--- NOTE | 2020-12-30 19:11 | NUR ---
SHIFT SUMMARY PT ALERT BUT LETHARGIC. PT C/O OF DIFFCULTY BREATHING BUT SATS ABOVE 95% ON 1-2L O2. PT STARTED ON HEPARIN DRIP. STOPPED FOR ONE HR DUE TO CRITICAL APPTT. PT STRAIGHT CATH ONCE TODAY 700 ML OUT. PT MEDICATED FOR NAUSEA ONCE, DENIES ANY PAIN. PT HAS A NEW PICC LINE TODAY. BED IS IN THE LOWEST POSITION AND CALL LIGHT WITHIN REACH
[2020-12-30 19:32] LABS: Source, Urine Clean Catch
[2020-12-30 19:39] LABS: Bilirubin, Urine Neg (Neg); Blood, Urine Neg (Neg); Glucose Qualitative, Urine Neg (Neg); Ketones, Urine Neg (Neg); Leukocyte Esterase, Urine 2+ (Neg); Nitrite, Urine Pos (Neg); Protein, Urine Neg (Neg); Urobilinogen, Urine NORM (Normal)
[2020-12-30 19:50] LABS: Appearance, Urine Hazy (Clear); Color, Urine Yellow (P-Yellow)
[2020-12-30 19:51] LABS: Bacteria Mod /hpf; Red Blood Cells, Urine Not Seen /hpf (0-2); Squamous Epithelial Cells Few /hpf (Few); White Blood Cells, Urine 25-50 /hpf (0-5)
[2020-12-31 03:18] LABS: Hematocrit 32.5 % (33.0-51.0); Hemoglobin 9.9 g/dL (11.5-16.0); Mean Corpuscular HGB Conc 30.5 g/dL (31.5-36.5); Mean Corpuscular Volume 89 fL (80-100); Mean Platelet Volume 10.7 fL (9.1-12.4); Platelet Count 332 K/mm3 (150-400); RDW Coefficient Variation 21.6 % (11.7-14.2); RDW Standard Deviation 72.9 fL (35.1-46.3); Red Blood Cell Count 3.66 M/mm3 (3.80-5.20); White Blood Cell Count 7.68 K/mm3 (4.00-11.30)
[2020-12-31 03:42] LABS: Alanine Aminotransfer (ALT/SGP 15 U/L (12-78); Albumin, Blood 2.8 g/dL (3.4-5.0); Albumin/Globulin Ratio 0.7 (0.8-1.8); Alk Phos 84 U/L (50-136); Anion Gap 3 mmol/L (6-16); Aspartate Aminotrans (AST/SGOT 6 U/L (12-37); Bilirubin, Total 0.2 mg/dL (0.1-1.0); Blood Urea Nitrogen 7 mg/dL (8-24); CO2, Blood 31 mmol/L (21-32); Calcium, Blood 8.9 mg/dL (8.5-10.1); Chloride, Blood 109 mmol/L (98-108); Creatinine, Blood 0.78 mg/dL (0.40-1.00); Globulin, Blood 4.3 g/dL (2.2-4.0); Glomerular Filtration Rate >60 (60-); Glucose, Blood 85 mg/dL (70-99); Potassium, Blood 3.5 mmol/L (3.5-5.5); Sodium, Blood 143 mmol/L (136-145); Total Protein, Blood 7.1 g/dL (6.4-8.2); Triiodothyronine, Free 1.44 pg/mL (2.18-3.98)
--- NOTE | 2020-12-31 04:40 | NUR ---
SHIFT SUMMARY ASSUMED CARE OF PT AT 1900. PT IS A/OX2. HEART SOUNDS REGULAR, LUNG SOUNDS DIMINISHED. PT HAS HIGH ANXIETY AND REPEATIVLY SAYS THAT SHE CANT BREATH. PT IS REASSURED AND USUALLY FALLS BACK ASLEEP. PT IS ON 2L NC, SATURATIONS AT 95%. PT HAS CONTRACTED ARMS AND LEGS. PT WAS ABLE TO EAT HER PUDDING AND SANDWICH HERSELF WITH LITTLE ASSISTANCE BUT PT WAS NAUSEATED, MEDICATED PER EMAR. PT HAD TO BE STRAIGHT CATHED ONCE THIS SHIFT. TOLERATED WELL. HEPRIN WAS TITRATED TWICE THIS SHIFT. CALL LIGHT IN REACH, BED IN LOWEST POSITON.
--- NOTE | 2020-12-31 17:22 | NUR ---
PATIENT A/OX2, WORKED WITH PT/OT TODAY. CONTINUES ON HEPARIN GTT PER PHARMACY. VSS, 2LO2 TO MAINTAIN SATS, LUNGS CLEAR/DIM. TOLERATING SOFT DIET, NEEDS ASSISTANCE WITH MEALS DUE TO WEAKNESS AND POOR DEXTERITY OF HANDS. PICC LINE TO RUE. RASH TO GROIN/PANNUS IMPROVING, NYSTATIN ORDERED TO TREAT. CONTINUES TO BE UNABLE TO VOID, BLADDER SCAN Q6 HOURS, STRAIGHT CATH X2 THIS SHIFT. CALM AND COOPERATIVE WITH CARE, ABLE TO MAKE NEEDS KNOWN.
--- NOTE | 2021-01-01 04:19 | NUR ---
SHIFT SUMMARY ASSUMED CARE OF PT AT 1900. PT IS A/OX2. HEART SOUNDS REGULAR, LUNG SOUNDS DIMINISHED AT THE BASES. PT STILL C/O SOB, BUT SATURATIONS REMAIN STABLE ABOVE 95%. PT ON 2L NC PER REQUEST. PT HAD TO BE STRAIGHT CATHED TWICE THIS SHIFT, PT WOULD BENIFIT FROM A HERNANDEZ EVIDENCE BY CULTURE INDICATED FROM UA AND DUE TO THICK WHITE VAGINAL DISCHARGE IN VAGINA. ANTIFUNGAL PLACED. PT TEARFUL THIS SHIFT SAYING THAT SHE WANTS TO VISIT HOME FOR A COUPLE MINUTES. CALL LIGHT IN REACH, BED IN LOWEST POSTION.
--- NOTE | 2021-01-01 07:30 | NUR ---
PATIENT GAVE PERMISSION TO GIVE CARE ON 01/01/21.
[2021-01-01 11:37] LABS: Source, Urine Catheter
[2021-01-01 11:45] LABS: Appearance, Urine Clear (Clear); Bilirubin, Urine Neg (Neg); Blood, Urine Neg (Neg); Color, Urine Yellow (P-Yellow); Glucose Qualitative, Urine Neg (Neg); Ketones, Urine Neg (Neg); Leukocyte Esterase, Urine 1+ (Neg); Nitrite, Urine Neg (Neg); Protein, Urine Neg (Neg); Specific Gravity, Urine 1.015 (1.003-1.022); Urobilinogen, Urine NORM (Normal); pH, Urine 6.5 (5.0-8.0)
[2021-01-01 11:58] LABS: Red Blood Cells, Urine 0-2 /hpf (0-2)
[2021-01-01 11:59] LABS: Bacteria Few /hpf; Hyaline Casts Rare /lpf (0-2); Renal Epithelial Rare /hpf (0-Rare); Squamous Epithelial Cells Not Seen /hpf (Few)
--- NOTE | 2021-01-01 17:44 | NUR ---
PT A&O X2, ON 2 LITERS OF O2 NC FOR SOB. PICC LINE MODESTO WNL/SL, HEPARIN DRIP D/C TODAY. PT WAS PUT ON XARELTO PO, WORKED WITH PT/OT, WAS COOPERATIVE AND ABLE TO SIT UP IN THE RECLINER FOR 45 MINUTES. A HERNANDEZ WAS PLACED DUE TO URINARY RETENTION, AND HAS BEEN RECEIVING FUNGAL CREAM FOR VAGINAL DISCHARGE. PT IS WAITING FOR PLACEMENT IN A SNF FOR REHAB.
--- NOTE | 2021-01-02 04:19 | NUR ---
SHIFT SUMMARY ADMITTED FOR TOXIC METABOLIC ENCEPHALOPATHY. FULL CODE. PLAN IS PLACEMENT WITH EVALUATION FOR SNF WHEN STABLE FOR DC. CONTINUES TO HAVE DIFFICULTY BREATHING SECONDARY TO ANXIETY. PT REDIRECTABLE AND RESTING COMFORTABLY AT THIS TIME. NO NEW CONCERNS THIS SHIFT.
--- NOTE | 2021-01-02 04:52 | NUR ---
CTA/STUDENT NURSE I HAVE ASSESSED THIS PT. I HAVE READ THIS STUDENT'S DOCUMENTATION AND I AGREE WITH IT. SHIFT SUMMARY IN STUDENT NURSE'S NOTES
[2021-01-02 05:45] LABS: BASOPHILS ABSOLUTE AUTO 0.05 K/mm3 (0.00-0.23); BASOPHILS PERCENT AUTO 1 % (0-2); EOSINOPHILS ABSOLUTE AUTO 0.33 K/mm3 (0.00-0.68); EOSINOPHILS PERCENT AUTO 4 % (0-6); Hematocrit 34.6 % (33.0-51.0); Hemoglobin 10.3 g/dL (11.5-16.0); IMMATURE GRAN ABSOLUTE AUTO 0.05 K/mm3 (0.00-0.10); IMMATURE GRAN PERCENT AUTO 1 % (0-1); LYMPHOCYTES ABSOLUTE AUTO 2.79 K/mm3 (0.84-5.20); LYMPHOCYTES PERCENT AUTO 33 % (21-46); MONOCYTES ABSOLUTE AUTO 0.45 K/mm3 (0.16-1.47); MONOCYTES PERCENT AUTO 5 % (4-13); Mean Corpuscular HGB Conc 29.8 g/dL (31.5-36.5); Mean Corpuscular Volume 91 fL (80-100); Mean Platelet Volume 11.1 fL (9.1-12.4); NEUTROPHILS ABSOLUTE AUTO 4.78 K/mm3 (1.96-9.15); NEUTROPHILS PERCENT AUTO 57 % (41-73); Platelet Count 332 K/mm3 (150-400); RDW Coefficient Variation 21.3 % (11.7-14.2); RDW Standard Deviation 72.1 fL (35.1-46.3); Red Blood Cell Count 3.82 M/mm3 (3.80-5.20); White Blood Cell Count 8.45 K/mm3 (4.00-11.30)
[2021-01-02 06:16] LABS: Alanine Aminotransfer (ALT/SGP 14 U/L (12-78); Albumin, Blood 2.9 g/dL (3.4-5.0); Albumin/Globulin Ratio 0.7 (0.8-1.8); Alk Phos 77 U/L (50-136); Anion Gap 4 mmol/L (6-16); Aspartate Aminotrans (AST/SGOT 7 U/L (12-37); Bilirubin, Total 0.2 mg/dL (0.1-1.0); Blood Urea Nitrogen 5 mg/dL (8-24); Bun/Creatinine Ratio 7.3 (12.0-20.0); CO2, Blood 34 mmol/L (21-32); Calcium, Blood 9.2 mg/dL (8.5-10.1); Chloride, Blood 104 mmol/L (98-108); Creatinine, Blood 0.69 mg/dL (0.40-1.00); Globulin, Blood 4.4 g/dL (2.2-4.0); Glomerular Filtration Rate >60 (60-); Glucose, Blood 79 mg/dL (70-99); Potassium, Blood 3.6 mmol/L (3.5-5.5); Sodium, Blood 142 mmol/L (136-145); Total Protein, Blood 7.3 g/dL (6.4-8.2); Triiodothyronine, Free 1.82 pg/mL (2.18-3.98)
[2021-01-02 06:33] LABS: Lithium 0.75 mmol/L (0.60-1.20)
--- NOTE | 2021-01-02 15:23 | NUR ---
PATIENT HAS BEEN PRETTY LETHARGIC THIS SHIFT WHICH IS HER BASELINE FOR THE DURATION OF THIS HOSPITAL VISIT. SHE WAS ALERT TO SELF, PLACE AND YEAR WHEN ASKED THIS MORNING. NO COMPLAINTS OF PAIN HOWEVER PATIENT STATES THAT SHE REQUIRES OXYGEN BECAUSE SHE IS SOB HOWEVER HER O2 SATS ARE IN THE HIGH 90s ON 2L NC. I JUST WENT AND TURNOFF OFF HER O2 IT IS NOT NEEDED. PATIENT CONTINUES ON IV ABX WITHOUT S/SX ADVERSE REACTIONS NOTED OR REPORTED. VITALS REMAIN STABLE. PATIENT REMAINS COOPERATIVE WITH STAFF AND CARE. CALL LIGHT IN REACH
--- NOTE | 2021-01-02 19:00 | NUR ---
ASSUMED CARE RECEIVED REPORT FROM OLIVIA Abdullahi RN. PT RESTING IN BED, TACHYPNEIC, STATES SHE'S HAVING A "PANIC ATTACK." PROVIDED REASSURANCE AND COACHED WITH DEEP BREATHING EXERCISES. DENIES NEEDS AT THIS TIME. CALL LIGHT, POSSESSIONS IN REACH.
--- NOTE | 2021-01-03 04:43 | NUR ---
HEAD BOYS TENNIS COACH SUMMARY PT RESTING, IN NO ACUTE DISTRESS. VS REVIEWED,WNL. O2 SATS STABLE. PT CONTINUES TO REPORT DYSPNEA, "PANIC ATTACKS". RE-DIRECTABLE, ENCOURAGED PT TO USE RELAXATION TECHNIQUES, AND DEEP BREATHING, IMAGINING HERSELF AT [place] (HER FAVORITE PLACE). PT DEMONSTRATED UNDERSTANDING. NO OTHER ACUTE CHANGES TO REPORT OVERNIGHT. SLEPT ON AND OFF. RECEIVED TX PER RT. NO ACUTE NEEDS ASSESSED AT THIS TIME. CALL LIGHT, POSSESSIONS IN REACH, BED IN LOW POSITION WITH ALARMS ON. WILL CONTINUE TO PROVIDE CARE AND REPORT OFF TO ONCOMING RN.
--- NOTE | 2021-01-03 15:11 | NUR ---
PATIENT HAS CONTINUED TO SHOW SOME ANXIETY AND C/O SOB WITH LABORED RESPIRATIONS NOTED THIS MORNING. I NOTIFIED DR MISHRA ABOUT PATIENTS ANXIETY AND SHE ORDERED BUSPAR 5MG PO TID; FIRST DOES WAS ADMINISTERED PER ORDERS. PATIENT HAS SINCE BEEN SLIGHTLY CALMED DOWN AND NOT CRYING OUT THAT SHE CAN NOT BREATH FREQUENTLY; SHE HAS BEEN EASIER TO REDIRECT AND CALM. IV ABX CONTINUE WITHOUT S/SX OF ADVERSE REACTIONS NOTED OR REPORTED. THERE HAVE BEEN NO OTHER ACUTE CHANGES TO REPORT OF AT THIS TIME. CALL LIGHT IS WITHIN REACH.
--- NOTE | 2021-01-03 19:00 | NUR ---
ASSUMED CARE RECEIVED REPORT FROM OLIVIA Abdullahi RN. PT RESTING, IN NO ACUTE DISTRESS. NO ACUTE NEEDS ASSESSED AT THIS TIME. CALL LIGHT, POSSESSIONS IN REACH, BED IN LOW POSITION WITH ALARMS ON.
--- NOTE | 2021-01-04 03:43 | NUR ---
REVIEW TRAINER SUMMARY PT A&OX3, COOPERATIVE WITH CARES. CALLS OUT AT TIMES, CONTINUED TO VOICE C/O DYSPNEA, PANIC ATTACKS, STATING AT TIMES THAT SHE FELT SHE WAS "SUFFOCATING." O2 SATS HAVE REMAINED STABLE ON 3L/NC, RESPS E/U. VS REVIEWED,WNL. ENCOURAGED PT TO PRACTICE RELAXATION TECHNIQUES, DEMONSTRATED UNDERSTANDING. SLEPT FOR MUCH OF THE NIGHT. NO OTHER ACUTE CHANGES IN CONDITION TO REPORT AT THIS TIME. TOLERATED ORAL INTAKE WELL. NO ACUTE NEEDS ASSESSED AT THIS TIME. CALL LIGHT, POSSESSIONS IN REACH, BED IN LOW POSITION WITH ALARMS ON. WILL CONTINUE TO PROVIDE CARE UNTIL REPORT GIVEN TO ONCOMING RN.
--- NOTE | 2021-01-04 11:19 | NUR ---
PT SCREAMING OUT ABOUT SUFFOCATING. ON 3L OXYGEN, SATS WERE MID 90S. WEANED DOWN TO 1L, SHE DOES DESAT TO MID-80S, OXYGEN MOVED BACK UP TO 3L. DR MISHRA CALLED AND INFORMED, SHE ORDERED CXR. TM
--- NOTE | 2021-01-04 18:28 | NUR ---
SHIFT SUMMARY JHON WAS VERY ANXIOUS IN THE MORNING, STATED SHE COULDN'T BREATHE AND WAS SUFFOCATING. SATS IN MID-90S ON RA (DESATS WITHOUT IT ON TO MID-80S), DR MISHRA ORDERED CXR AND PO ABX. RT TREATMENTS HELPED HER SOB, MUCH CALMER IN AFTERNOON. STILL ON 3L OXYGEN UP TO EDGE OF BED THIS AFTERNOON WITH PT, UNABLE TO STAND WITH MAX AO2 AND GAIT BELT. NAUSEA, LIKELY CONSTIPATED--MILK OF MAG GIVEN AND BOWEL PROTOCOL STARTED. FEED ASSIST, HERNANDEZ DRAINING WELL. TOOK MEDS WHOLE WITH APPLESAUCE. CALL LIGHT IN REACH, WCTM
--- NOTE | 2021-01-05 03:40 | NUR ---
PT with sob & hypoxia on room air continues to require 3 l nc to keep sats greater than 90%. She has very high anxiety despite buspar TID & lithium HS & it is related to dsypnea. o2 sat 95 % on 3 l nc & pt had CXR yesterday that showed bilat lower lobe pneumonia. HAs neb txs BID. Paging hospitalist for co acute anxiety & bronchodilator protocol. HX of alcholism & polysubstance abuse, poly drug OD.
--- NOTE | 2021-01-05 04:11 | NUR ---
Called DR Desir about PT's CO dyspnea & anxiety despite adeq o2 sat on 3 l nc. 95% HX of anxiety has not slept, hollers out multiple times she has no PRN anxiety RX. Melatonin 5 mg po now & q hs PRN ordered, BD protocol, oxygen therapy to keep sats greater than 90%. Reviewed recent CXR with MD & she says to notify Day MD to address issues.
--- NOTE | 2021-01-05 09:43 | NUR ---
Echocardiogram completed.
--- NOTE | 2021-01-05 18:38 | NUR ---
SHIFT SUMMARY JHON WAS PLEASANT AND COOPERATIVE THIS SHIFT. GOT UP TO A CHAIR WITH PT AND AO2 WITH GAIT BELT AND BACK TO BED WITH SIT TO STAND DEVICE. COMPLAINED OF GENERALIZED PAIN, DR MISHRA INCREASED GABAPENTIN. COMPLAINED OF SOB, PT SATS DOING WELL ON 3L OXYGEN, RT TREATMENTS HELPED SOB AND ANXIETY. FEED ASSIST GIVEN. HERNANDEZ DRAINING WELL. HAD ECHO THIS MORNING. CALL LIGHT IN REACH, BED ALARM ON, [facility]
--- NOTE | 2021-01-06 01:40 | NUR ---
PT with much less anxiety tonight she does occasional call out but minimally. She continues on 3 l NC to keep sats greater than 90%. Much more effetive breathing pattern. She cannot do IS weak attempts at flutter valce occasional with cues. Feeding self tonight appetite good. Melatonin 5 mg po at HS helpful. RT working with PT nebs helpful for dyspnea.
[2021-01-06 05:03] LABS: BASOPHILS ABSOLUTE AUTO 0.07 K/mm3 (0.00-0.23); BASOPHILS PERCENT AUTO 1 % (0-2); EOSINOPHILS ABSOLUTE AUTO 0.41 K/mm3 (0.00-0.68); EOSINOPHILS PERCENT AUTO 4 % (0-6); Hematocrit 35.8 % (33.0-51.0); Hemoglobin 11.1 g/dL (11.5-16.0); IMMATURE GRAN ABSOLUTE AUTO 0.06 K/mm3 (0.00-0.10); IMMATURE GRAN PERCENT AUTO 1 % (0-1); LYMPHOCYTES ABSOLUTE AUTO 3.43 K/mm3 (0.84-5.20); LYMPHOCYTES PERCENT AUTO 33 % (21-46); MONOCYTES ABSOLUTE AUTO 0.58 K/mm3 (0.16-1.47); MONOCYTES PERCENT AUTO 6 % (4-13); Mean Corpuscular HGB 27.3 pg (26.0-34.0); Mean Corpuscular Volume 88 fL (80-100); Mean Platelet Volume 11.5 fL (9.1-12.4); NEUTROPHILS PERCENT AUTO 57 % (41-73); Platelet Count 332 K/mm3 (150-400); Red Blood Cell Count 4.06 M/mm3 (3.80-5.20); White Blood Cell Count 10.55 K/mm3 (4.00-11.30)
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
[2021-01-06 05:24] LABS: Anion Gap 3 mmol/L (6-16); Blood Urea Nitrogen 15 mg/dL (8-24); Bun/Creatinine Ratio 21.1 (12.0-20.0); CO2, Blood 38 mmol/L (21-32); Calcium, Blood 9.5 mg/dL (8.5-10.1); Chloride, Blood 94 mmol/L (98-108); Creatinine, Blood 0.71 mg/dL (0.40-1.00); Glomerular Filtration Rate >60 (60-); Glucose, Blood 113 mg/dL (70-99); Potassium, Blood 3.6 mmol/L (3.5-5.5); Sodium, Blood 135 mmol/L (136-145)
--- NOTE | 2021-01-06 17:03 | NUR ---
SPOKE TO DR MISHRA- PT HAS ORDER FOR IM VIT B 12 TODAY ONCE WEEKLY AND ONE TO START 01/08/21 ONCE WEEKLY. SPOKE TO DR TO CLARIFY. THE ORDER FOR TODAY WAS HELD FIRST DOSE VITAMIN B 12 WEEKLY TO START ON 01-08 THIS ORDER DC'D DUPLICATE ORDER NOT GIVEN. PT TO RECIEVE IM B12 WEEKLY FOR [address] MISHRA. SPOKE TO ABOUT POSSIBLE DC OF THE HERNANDEZ ORDER RECIEVED TO KEEP THE HERNANDEZ IN PLACE FOR RETENTION.
--- NOTE | 2021-01-06 17:32 | NUR ---
SHIFT SUMMARY- PT ALERT AND ORIENTED X3. RESP RATE IS ELEVATED WITH ACCESSORY MUSCLE USE AT BASELINE PER REPORT FROM NIGHT RN. PT HAS NO S&S OF DISTRESS NOTED. HERNANDEZ IN PLACE PATENT AND DRAINING TO GRAVITY. SPOKE TO ABOUT DC'ING THE HERNANDEZ, NO NEW ORDERS AT THIS TIME. PT IN BED SITTING UP BEING ASSISTED WITH DINNER. PT WAS UP INTO THE CHAIR FOR BREAKFAST AND LUNCH TRANSFERED VIA THE SIT TO STAND WHICH SHE DID WELL. PT IN BED CALL LIGHT IN REACH, BED ALARM SET FOR SAFETY. NO ACUTE CHANGE T/O THE SHIFT.
--- NOTE | 2021-01-07 03:52 | NUR ---
POT ROOM SUPERVISOR SUMMARY A/O 2-3, USE OF SIT TO STAND FOR TRANSFERS. ABLE TO ANSWER QUESTIONS AND FOLLOW COMMANDS. PT ANXIOUS AND YELLS OUT FREQUENTLY. USE OF ACCESSORY MUSCLES WHILE BREATHING NOTED. DENIES PAIN AT THIS TIME. VSS, NO ACUTE CHANGES. BED IN LOWEST POSITION WITH CALL LIGHT IN REACH. WILL CONTINUE TO MONITOR AND REPORT TO ONCOMING RN.
--- NOTE | 2021-01-07 18:08 | NUR ---
SHIFT SUMMARY PT AxOx3-4 WITH INTERMITTENT CONFUSION. CALLING APPROPRIATELY. PT HAD CHEST XRAY, SPEECH THERAPY AND PHYSICAL THERAPY TODAY. PT PLACED ON BLADDER TRAINING TODAY, WITH EXPECTED HERNANDEZ DC TOMORROW. NO BM x3 DAYS. PT DRINKING PRUNE JUICE TO GET BOWELS MOVING. PT EXPERIENCED SOME OCCASIONAL ORTHOPNEA THIS SHIFT, CORRECTED WITH UPRIGHT POSITIONING AND 2L O2 VIA NC. VITALS REVIEWED. PT CURRENTLY RESTING IN ROOM WITH CALL LIGHT IN REACH. CURRENT PLAN IS TO DC TO SNF IN THE NEXT FEW DAYS.
--- NOTE | 2021-01-08 04:05 | NUR ---
SUMMARY THERE ARE NO NEW ISSUES NOTED. PT HAS BEEN RESTING COMFORTABLY T/O SHIFT. PT COOPERATIVE AND PLESANT. PT HERNANDEZ DRAINING TO GRAVITY. PT CURRENTLY SLEEPING IN NO DISTRESS. PT CALL LIGHT IN REACH AND BED ALARM ON.
--- NOTE | 2021-01-08 19:09 | NUR ---
SHIFT SUMMARY: NO ACUTE CHANGES TO REPORT THIS SHIFT. PT A&O X3; ANXIOUS; COOPERATIVE WITH CARE. MEDICATED FOR ANXIETY PER EMAR. DAVID D/C'd THIS SHIFT; PT TOLERATED WELL. O2 @ 2L FOR COMFORT. AWAITING PLACEMENT IN SNF. REPORT GIVEN TO ONCOMING RN.
--- NOTE | 2021-01-09 04:28 | NUR ---
SUMMARY PT HAD A BETTER NIGHT. PT DID NOT YELL OUT MUCH DURING SHIFT. PT HAS BEEN RESTING COMFORTABLY FOR MOST OF SHIFT. PT HAD HERNANDEZ REMOVED AND HAS BEEN VOIDING WELL VIA BEDPAN. PT HAD NO NEW COMPLAINTS. PT CURRENTLY AWAKE WATCHING TV AND IN NO DISTRESS. CALL LIGHT IN REACH AND BED ALARM ON.
--- NOTE | 2021-01-09 18:36 | NUR ---
SHIFT SUMMARY- PT IS A/O, PLESANT AND COOPERATIVE. SHE WORKED WITH PT THIS SHIFT AND TOLERATED WELL. SHE SLEPT INTERMITENTLY THROUGHTOUT THIS SHIFT. SHE IS USING THE SIT TO STAND TO GET TO THE BEDSIDE CAMMODE. SHE IS VOIDING WELL. SHE WAS UP TO THE CHAIR TODAY. HER BED IS IN THE LOW POSITION AND CALL LIGHT IS WITIN REACH.
--- NOTE | 2021-01-10 06:07 | NUR ---
SHIFT SUMMARY PT IS A 40 Y/O FEMALE, ADMITTED FOR TOXIC METABOLIC ENCEPHALOPATHY. SHE IS A&O X 2, 2P MAX SIT TO STAND LIFT BETWEEN BED AND CHAIR. PT WAS MEDICATED TWICE DURING THE NIGHT FOR ANXIETY WITH PRN XANAX AND ONCE FOR A CAZARES WITH PRN TYLENOL. PT GETS VERY ANXIOUS AND SOB AT TIMES, ON 2L OF O2 VIA NC. SATTING >90%. VITAL SIGNS STABLE. NO OTHER ACUTE CHANGES IN PT CONDITION NOTED. WILL CONTINUE TO MONITOR AND TREAT PER EMAR UNTIL HAND OFF TO DAY SHIFT RN.
--- NOTE | 2021-01-10 13:45 | NUR ---
Q6H BLADDER SCAN COMPLETED, PT HAD APPROX 446 ML IN BLADDER. PT WAS ASSISTED TO BSC AND HAD AN OUTPUT OF 500 ML. POST VOID BLADDER SCAN WAS COMPLETED, NO RESIDUAL URINE NOTED IN BLADDER. NO PRN STRAIGHT CATHETER NEEDED AT THIS TIME.
--- NOTE | 2021-01-10 19:11 | NUR ---
SHIFT SUMMARY NO ACUTE CHANGES T/O SHIFT, COOPERATIVE CARE. PT DOES REPORT FREQUENT ANXIETY/PANIC ATTACKS. PRN XANAX GIVEN PER EMAR, WELL SCHEDULED MEDICATIONS AND BREATHING TX. DEEP BREATHING COACHED WELL TELLING PT TO INVISION HER CALM PLACE. ALL IMPLEMENTATIONS EFFECTIVE IN TREATING HER ANXIETY. PT SAT UP IN CHAIR MOST OF THE DAY, SHE STATES LYING IN BED INCREASES HER ANXIETY. BLADDER SCAN COMPLETED AND NO STRAIGHT CATHETERIZATION NEEDED. PT CALLS APPROPIRATELY WHEN NEEDED TO USE THE RESTROOM AND IS ABLE TO HOLD IT UNTIL SHE GETS ON THE BSC. PT REMAINS ON 2 L/MIN NC FOR COMFORT. GOOD FLUID AND ORAL INTAKE T/O SHIFT. PT IS CURRENTLY SITTING IN HER RECLINER, CALL LIGHT WITHIN REACH. CALLS APPROPRIATELTY.
--- NOTE | 2021-01-11 03:50 | NUR ---
SHIFT SUMMARY PT VERY ANXIOUS T/O THE SHIFT, PANICS AND HYPERVINILATES. WHEN ASKED WHAT IS TRIGGERING HER ANXIETY SHE STATES IT'S BECAUSE SHES BEEN IN THE HOSPITAL FOR SO LONG AND EXPRESSED DESIRE FOR DISCHARGE. PT ALSO HAS INCREASED ANXIETY WHEN HAVING TO USE THE BED PEREYRA AND COMPLAINS OF INCREASED SOB. SATS WNL ON 2L. XANAX GIVEN PRN PER ORDERS. PT HAS BEEN AWAKE MOST OF THE NIGHT. SHE VOIDS WITHOUT DIFFICULTY MULTIPLE TIMES THIS SHIFT, LARGE AMOUNTS. VERY LITTLE IN BLADDER WHEN BLADDER SCANNED AT THE START OF THE SHIFT. PT REMAINS A HEAVY LIFT PT. PT REMAINS VERY WEAK AND IS A UNABLE TO USE HER LEGS. SAADIA LIFT REQUIRED FOR SIT TO STAND BETWEEN THE BED AND CHAIR. VITALS STABLE. NO ACUTE CHANGES IN ASSESSMENT. BED IN LOWEST POSITION, CALL LIGHT WITHIN REACH.
--- NOTE | 2021-01-11 17:43 | NUR ---
SHIFT SUMMARY PT IS AO. PT MEDICATED FOR PAIN X1. PT DENIES N/V, BUT C/O SOB WHEN LYING DOWN. PT MEDICATED FOR ANXIEY X1. PT APPETITE IS GOOD. PT WORKED WITH PT/OT TODAY AND DID WELL. PT IS STILL 2 MAX ASSIST. PT HAD A VISITOR THIS JO ANN. PLAN IS POTENTIALLY FOR PLACEMENT. PT IS IN BED, CALL LIGHT IN REACH, BED IN LOW POSITION.
--- NOTE | 2021-01-12 04:36 | NUR ---
SHIFT SUMMARY ALERT, ABLE TO MAKE NEEDS KNOWN. COOPERATIVE WITH CARE. ANSWERS QUESTIONS APPROPRIATELY. CONTINUES TO C/O ORTHOPNEA. STATES ANXIOUS; MEDICATED PER MEAR. NO C/O PAIN/DISCOMFORT. 2 MAX ASSIST TO CHAIR; DIFFICULTY WITH FINE AND GROSS MOTOR. MULTIPLE VOIDS T/O NIGHT REQUIRING MULTIPLE BED CHANGES. NO POST VOID RESIDUAL. DID NOT APPEAR TO REST MUCH OVERNIGHT. BED REMAINS IN LOWEST POSITION; ALARM ON. CALL LIGHT AND BELONGINGS WITHIN REACH. CONTINUE WITH CURRENT PLAN OF CARE. REPORT TO ONCOMING RN.
[2021-01-12 12:29] LABS: BASOPHILS ABSOLUTE AUTO 0.07 K/mm3 (0.00-0.23); BASOPHILS PERCENT AUTO 1 % (0-2); EOSINOPHILS PERCENT AUTO 3 % (0-6); Hematocrit 35.3 % (33.0-51.0); Hemoglobin 10.8 g/dL (11.5-16.0); IMMATURE GRAN ABSOLUTE AUTO 0.02 K/mm3 (0.00-0.10); IMMATURE GRAN PERCENT AUTO 0 % (0-1); LYMPHOCYTES ABSOLUTE AUTO 2.16 K/mm3 (0.84-5.20); LYMPHOCYTES PERCENT AUTO 32 % (21-46); MONOCYTES ABSOLUTE AUTO 0.38 K/mm3 (0.16-1.47); MONOCYTES PERCENT AUTO 6 % (4-13); Mean Corpuscular HGB 27.8 pg (26.0-34.0); Mean Corpuscular HGB Conc 30.6 g/dL (31.5-36.5); Mean Corpuscular Volume 91 fL (80-100); Mean Platelet Volume 10.9 fL (9.1-12.4); NEUTROPHILS ABSOLUTE AUTO 3.99 K/mm3 (1.96-9.15); NEUTROPHILS PERCENT AUTO 59 % (41-73); Platelet Count 257 K/mm3 (150-400); RDW Coefficient Variation 17.7 % (11.7-14.2); RDW Standard Deviation 58.9 fL (35.1-46.3); Red Blood Cell Count 3.89 M/mm3 (3.80-5.20); White Blood Cell Count 6.82 K/mm3 (4.00-11.30)
[2021-01-12 13:05] LABS: Lithium 0.76 mmol/L (0.60-1.20)
[2021-01-12 13:22] LABS: Albumin, Blood 3.1 g/dL (3.4-5.0); Anion Gap 4 mmol/L (6-16); Blood Urea Nitrogen 7 mg/dL (8-24); Bun/Creatinine Ratio 11.8 (12.0-20.0); CO2, Blood 33 mmol/L (21-32); Calcium, Blood 8.5 mg/dL (8.5-10.1); Chloride, Blood 98 mmol/L (98-108); Creatinine, Blood 0.59 mg/dL (0.40-1.00); Glomerular Filtration Rate >60 (60-); Glucose, Blood 97 mg/dL (70-99); Phosphorus, Blood 4.1 mg/dL (2.5-4.9); Potassium, Blood 4.3 mmol/L (3.5-5.5); Sodium, Blood 135 mmol/L (136-145)
--- NOTE | 2021-01-12 17:19 | NUR ---
SHIFT SUMMARY PT A/O; PLEASANT AND COOPERATIVE WITH CARE. PT MEDICATED FOR ANXIETY TWICE THIS SHIFT. EXPERIENCES DYSPNEA WHEN REPOSITIONED AND FEELING ANXIOUS. CURRENTLY ON 2 LITERS O2 VIA NC. VOIDING WITHOUT DIFFICULTY THIS SHIFT. CHAIR BOUND AND USES A SIT TO STAND TO GET UP. HAS DIFFICULTY WITH FINE MOTOR SKILLS. MEDS WHOLE IN APPLESAUCE. RESTING QUIETLY WITH CALL LIGHT IN REACH. VSS.
--- NOTE | 2021-01-12 19:00 | NUR ---
ASSUMED CARE RECEIVED REPORT FROM CONOR ALDANA. PT RESTING, IN NO ACUTE DISTRESS. NO ACUTE NEEDS ASSESSED AT THIS TIME. CALL LIGHT,POSSESSIONS IN REACH, BED IN LOW POSITION WITH ALARMS ON.
--- NOTE | 2021-01-13 06:52 | NUR ---
BOILER ATTENDANT SUMMARY PT RESTING, IN NO ACUTE DISTRESS. VS REVIEWED,WNL. PT HAS SLEPT ON AND OFF THROUGH THE NIGHT. MEDICATED FOR ANXIETY X1 PER EMAR, WITH EFFECTIVE RELIEF. VOIDING WELL USING BEDPAN. PT MENSTRUATING, ATTENDS CHANGED EVERY 1.5-2 HOURS. URINE CRANBERRY IN COLOR, WITH SMALL CLOTS NOTED. PT DENIES CRAMPS. REPORTS SHE HAS THE NEXPLANON CONTROL IMPLANT, AND HAS NOT HAD HER PERIOD FOR ABOUT 6 MONTHS. WAS SPOTTING YESTERDAY. NO BM'S THIS SHIFT DESPITE SCHEDULED AND PRN BOWEL CARE. WILL NOTIFY DAY RN OF NEED FOR ADDITIONAL BOWEL CARE. NO ACUTE NEEDS ASSESSED AT THIS TIME. CALL LIGHT, POSSESSIONS IN REACH, BED IN LOW POSITION WITH ALARMS ON. REPORT GIVEN TO DAY RN.
--- NOTE | 2021-01-13 18:30 | NUR ---
SHIFT SUMMARY PT HAS BEEN UP IN THE CHAIR A LOT OF THE SHIFT. WORKED WITH PHYSICAL AND OCCUPATIONAL THERAPY. PT UP 1 MODERATE ASSIST TO CHAIR AND BSC. MEDICATED FOR ANXIETY WITH XANAX PER EMAR THIS EVENING. NO ACUTE CHANGES THIS SHIFT. WAITING FOR PLACEMENT. CALL LIGHT IN REACH AND BED ALARM ON FOR SAFETY. WILL CONTINUE TO MONITOR AND REPORT TO ONCOMING RN.
--- NOTE | 2021-01-14 05:33 | NUR ---
SHIFT SUMMARY NO ACUTE CHANGES THIS SHIFT, UP TO BSC 3X THIS SHIFT W/MOD ASSIST, MEDICATED 1X FOR CAZARES, NO OTHER C/O ANY KIND, BEDRESTING AT THIS TIME, CALL LIGHT IN REACH, BED ALARM ACTIVE, WILL CONT TO MONITOR UNTIL REPORT GIVEN TO DAY RN.
--- NOTE | 2021-01-14 18:16 | NUR ---
SHIFT SUMMARY PT WORKED WITH PHYSICAL AND OCCUPATIONAL THERAPY THIS SHIFT. PT UP IN CHAIR THIS AFTERNOON. MEDICATED FOR PAIN X1 AND ANXIETY. PT ON ROOM AIR WITH NO DISTRESS. NO ACUTE CHANGES THIS SHIFT. CALL LIGHT IN REACH. WILL CONTINUE TO MONITOR AND REPORT TO ONCOMING RN. CHAIR ALARM IN PLACE.
--- NOTE | 2021-01-14 19:49 | NUR ---
PT GAVE THIS STUDENT NURSE PERMISSION TO PROVIDE CARE ON 01/14/21.
[2021-01-15 05:24] LABS: Hemoglobin 11.5 g/dL (11.5-16.0); Mean Corpuscular HGB 27.1 pg (26.0-34.0); Mean Corpuscular HGB Conc 30.3 g/dL (31.5-36.5); Mean Corpuscular Volume 89 fL (80-100); Mean Platelet Volume 10.8 fL (9.1-12.4); Platelet Count 260 K/mm3 (150-400); RDW Coefficient Variation 17.7 % (11.7-14.2); RDW Standard Deviation 57.4 fL (35.1-46.3); Red Blood Cell Count 4.25 M/mm3 (3.80-5.20); White Blood Cell Count 7.54 K/mm3 (4.00-11.30)
--- NOTE | 2021-01-15 05:30 | NUR ---
SHIFT ASSESSMENT NO ACUTE CHANGES THIS SHIFT. PT UP TO BEDSIDE COMMODE X4 W/MOD ASSIST. MEDICATED PT FOR CAAZRES & ANXIETY PER NOV X1. PT PERFORMED ADLs W/MINIMAL ASSISTANCE & RESPONDED WELL TO VERBAL REMINDERS & CUES. PT UP IN HER CHAIR AT THIS TIME. CALL LIGHT IS WITHIN REACH. WILL CONTINUE TO MONITOR UNTIL REPORT GIVEN TO DAY RN.
[2021-01-15 06:16] LABS: Alanine Aminotransfer (ALT/SGP 23 U/L (12-78); Albumin, Blood 3.5 g/dL (3.4-5.0); Albumin/Globulin Ratio 0.8 (0.8-1.8); Alk Phos 84 U/L (50-136); Anion Gap 3 mmol/L (6-16); Aspartate Aminotrans (AST/SGOT 17 U/L (12-37); Bilirubin, Total 0.2 mg/dL (0.1-1.0); Blood Urea Nitrogen 9 mg/dL (8-24); Bun/Creatinine Ratio 13.4 (12.0-20.0); CO2, Blood 35 mmol/L (21-32); Calcium, Blood 9.2 mg/dL (8.5-10.1); Chloride, Blood 97 mmol/L (98-108); Creatinine, Blood 0.67 mg/dL (0.40-1.00); Globulin, Blood 4.4 g/dL (2.2-4.0); Glomerular Filtration Rate >60 (60-); Glucose, Blood 103 mg/dL (70-99); Magnesium, Blood 2.3 mg/dL (1.6-2.4); Sodium, Blood 135 mmol/L (136-145); Total Protein, Blood 7.9 g/dL (6.4-8.2); Triiodothyronine, Free 2.49 pg/mL (2.18-3.98)
--- NOTE | 2021-01-15 19:18 | NUR ---
a+o, sitting up in chair, uses fww and gatebelt to transfer, only used 2 of 3 anxiety doses, call light in reach, rm air no IV, no acute changes noted during shift
--- NOTE | 2021-01-16 03:14 | NUR ---
SCU MONITOR VERIFIED VIDEO MONITORING IS IN PLACE
--- NOTE | 2021-01-16 04:03 | NUR ---
SHIFT SUMMARY ADMITTED FOR TOXIC METABOLIC ENCEPHALOPATHY. FULL CODE. PT MEDICATED FOR ANXIETY ONCE THIS SHIFT. PT COMPLAINED OF N/T TO FINGERS AND WAS HYPERVENTILATING. PT UP TO COMMODE AND IN CHAIR WITH ASSISTANCE AND FWW. NO NEW CONCERNS THIS SHIFT.
--- NOTE | 2021-01-16 04:20 | NUR ---
CTA/PORTRAIT ARTIST I HAVE ASSESSED THIS PT. I HAVE READ THE PORTRAIT ARTIST'S DOCUMENTATION AND I AGREE WITH IT. SHIFT SUMMARY IN PORTRAIT ARTIST NOTES
--- NOTE | 2021-01-16 18:11 | NUR ---
a+o but sleepy, walked to the middle of the bhatia today with pt, after resting she walked back to her bed, call light in reach, has used only 2 of three anxiety medications, she asked for the third but when reminded that she would not get any more if she used it she decided to wait, rm air no iv, no acute changes noted during the shift, cooperative with staff, will continue to monitor and treat until share bsr with noc nurse and pt
--- NOTE | 2021-01-16 19:38 | NUR ---
SCU MONITOR VERIFIED VIDEO MONITORING IS IN PLACE
--- NOTE | 2021-01-17 03:53 | NUR ---
SHIFT SUMMARY ADMITTED FOR TOXIC METABOLIC ENCEPHALOPATHY. FULL CODE. PT MEDICATED FOR ANXIETY X1 THIS SHIFT DUE TO COMPLAINTS OF INCREASING ANXIETY AND SOB. PT MEDICATED TO HELP HER SLEEP. GIVEN PAIN MEDICATION X1 PRN FOR PAIN IN HANDS AND LEGS. PT WAKES UP MULTIPLE TIMES THROUGHOUT THE SHIFT. NO NEW CONCERNS THIS SHIFT.
--- NOTE | 2021-01-17 06:03 | NUR ---
CTA/MOBILE PRODUCT MANAGER I HAVE ASSESSED THIS PT. I HAVE STUDIED THIS STUDENT'S DOCUMENTATION AND I AGREE. SHIFT SUMMARY UNDER MOBILE PRODUCT MANAGER NOTES
--- NOTE | 2021-01-17 17:03 | NUR ---
A+O, went for a ride in a wc around campus to get out of rm, no walking was able to transfer with fww and sba, call light in reach, rm air, will continue to montitor and treat until share bsr with pt and noc nurse, spent most of the shift sleeping, no request for anxiety medication
--- NOTE | 2021-01-18 04:30 | NUR ---
FENCE SUPERVISOR SUMMARY PT A/O X3 WITH FORGETFULNESS. PT REQUESTED FOR ANXIETY MED AND WAS GIVEN X1 NOC SHIFT. SLEPT OFF AND ON. ROOM AIR, NO SOB NOTED. PT HAS BEEN USING CALL LIGHT APPROPRIATELY. AMBULATED WITH 2 ASSIST WITH GAITBELT AND FWW TO BSC. PT TENDS TO LOCK KNEES WHEN UP AND REQUIRES REMINDERS TO NOT DO SO. CURRENTLY RESTING IN BED. BED ALARM ON, CALL LIGHT WITHIN REACH.
--- NOTE | 2021-01-18 16:33 | NUR ---
SHIFT SUMMARY PT AXO, PLEASANT AND COOPERATIVE WITH CARE. VSS. PT CONTINUES TO COMPLAIN OF ANXIIEY, MEDICATED PER EMAR. NO ACUTE CHANGES THIS SHIFT. PT UP WITH 2 ASSIST WITH GB AND FWW TO [facility]. SEE PHYSICAL AND OCCUPATIONAL THERAPY NOTE. BED IN LOW POSITION, CALL LIGHT WITHIN REACH, BED ALARM ON. ON RA. COMPLAINED OF SOB AT 1115, MEDICATED FOR ANXIETY PER EMAR. RT IN SHORTLY AFTER. PT COMFORTABLE AND SLEPT AFTER.
--- NOTE | 2021-01-18 20:40 | NUR ---
REPORT RECIEVED FROM TYRESE WEEKS, PHP MYSQL DEVELOPER, AND PT T/F VIA CARRI TO ROOM 346 AT 2034. HE WAS ORIENTED TO ROOM AND CALL LIGHT AND DEMONSTRATED KNOWLEGE AND ABILITY OF USE. TV ON PER REQUEST AND PT DENIED PAIN/COMPLAINTS. BED ALARM ON. WCTM AND MEDICATE PER EMAR.
--- NOTE | 2021-01-18 22:25 | NUR ---
PT AWOKE MILDLY DISORIENTED. HE APPEARED SLIGHTLY SOB AND HAD DISCONNECTED HIS IVF FROM HIS IV. SPO2 WAS 84-86% ON RA SO WAS PLACED ON 1L 02 VIA NC FOR SPO2>90%. PT REQUESTED TO SIT UP AND RESPS IMPROVED. PT REORIENTED AND HE CALMED TO FALL BACK TO SLEEP.
--- NOTE | 2021-01-19 03:43 | NUR ---
SUMMARY: A/OX4, SPECIFIES NEEDS AND PLEASANT AND COOPERATIVE W/CARE. SHE CONT'S TO C/O ANXIETY W/XANAX RECIEVED PRN FOR GOOD EFFECT. PT SLEPT T/O NOCTE AND WAS UP W/ASSIST VIA FWW AND GB TO BSC. BED ALARM ON FOR OCCASIONAL FORGETFULLNESS AND CALL LIGHT IN REACH. NO ACUTE CHANGES, VSS/AFEBRILE. SNF PLACEMENT PENDING. WCTM AND REPORT TO DAY RN.
--- NOTE | 2021-01-19 04:04 | NUR ---
SUMMARY: PT A/OX2-3, IS PLEASANT/COOPERATIVE W/CARE AND USES CALL LIGHT APPROPRIATELY AT TIMES. BED ALARM ON FOR FALL RISK AND INTERMITTENT CONFUSION W/IPULSIVITY. HE'S BEEN ABLE TO SPECIFY NEEDS AND IS UP TO BSC W/SBA. PT HAD SM.HARD BM THIS SHIFT W/SP CATH REMAINING PATENT/DRAINING. YELLOW BLOOD TINGED URINE OBSERVED AND CATH FLUSHED Q4H PER RX FOR OCCASIONAL BLOOD CLOTS. NA BICARB INFUSES AT 50 ML/HR. PT IS NO LONGER ON TELEMETRY BUT HAS KNOWN AFIB W/IRREGULAR HR. HE BECAME SOB AND AWOKE SLIGHTLY ANXIOUS THIS SHIFT W/SPO2 OBSERVED AT 84-86% ON RA. PT REPOSITIONED AND PLACED ON 1L O2 FOR SPO2 IMPROVEMENT >90%. DAUGHTER CALLED FOR UPDATE AND Q'S/CONCERNS ADDRESSED. NO ACUTE CHANGES, VSS/AFEBRILE. PT DENIED PAIN/COMPLAINTS. WCTM/REPORT TO DAY RN.
--- NOTE | 2021-01-19 16:52 | NUR ---
SHIFT SUMMARY PT ALERT AND AWAKE TODAY. PT PARTICIPATED WITH PT/OT. PT VERY ANXIOUS; MEDICATED PER EMAR. DENIES SOB AND ANY NEW CONCERNS. BLADDER SCANNED THE PT- 0 POSTVOIDAL. AWAITS FOR PLACEMENT. BED IS IN THE LOWEST POSITION AND CALL LIGHT WITHIN REACH
--- NOTE | 2021-01-20 06:09 | NUR ---
SUMMARY: A/OX4, CALLS APPROPRIATELTY AND SBA PROVIDED TO BSC W/FWW AND GB PRN. PT RECIEVED XANAX AT HS PRN FOR CONT'D C/O ANXIETY FOR GOOD EFFECT. SHE'S BEEN PLEASANT AND COOPERATIVE W/CARE AND HAD SNACKS PER REQUEST. PT SLEPT INTERMITTENTLY T/O NOCTE W/O S/S DISTRESS. VSS/AFEBRILE, NO ACUTE CHANGES. WCTM AND REPORT TO DAY RN.
--- NOTE | 2021-01-20 17:52 | NUR ---
SHIFT SUMMARY PT ALERT; CONFUSED AT TIMES. PT VERY ANXIOUS BECAUSE OF HER FAMILY SITUATION; MEDICATED PER EMAR. DENIES PAIN AND NO APPARENT DISTRESS. BED IS IN THE LOWEST POSITION AND CALL LIGHT WITHIN REACH.
--- NOTE | 2021-01-21 05:36 | NUR ---
PT IS ALERT, UP TO RESTROOM THIS SHIFT WITH 1-ASSIST, FWW AND GAIT BELT. ANXIETY MED GIVEN THIS AM PER PT REQUEST. MEDS GIVEN WITH APPLESAUCE. PT IS CONTINENT.
--- NOTE | 2021-01-21 17:12 | NUR ---
NO ACUTE CHANGES. PT CONTINUE TO IMPROVE AND HAS BEEN DOING WELL A 1 PERSON ASSIST AND WALKING WITH WALKER TO RESTROOM. PT IS VERY INTERACTIVE WITH HER CAREGIVERS AND WORKS WELL WITH ALL OF HER THERAPY. PT DENIES ANY PAIN AND HAS CALL LIGHT WITHIN REACH WILL CONTINUE TO MONITOR.
--- NOTE | 2021-01-22 05:37 | NUR ---
PT IS ALERT, PARANOID AT TIMES AND ANXIOUS. TONIGHT PT WAS MEDICATED FOR ANXIETY, SLEEP AND EAR PAIN PER EMAR. PT WAS CRYING LOUDLY AT ONE POINT AT FIRST SAYING SHE HAD A HEADACHE THEN SAYING IT WAS HER EAR. 1-ASSIST TO BATHROOM WITH FWW AND GAIT BELT.
--- NOTE | 2021-01-22 17:48 | NUR ---
PT HAS HAD NO ACUTE CHANGES. PT DID START SHIFT OUT WITH HEADACHE AND WAS TREATED PER EMAR. PT IMPROVED AFTER AN AFTERNOON NAP AND THEN WORKED REALLY WELL WITH PHYSICAL THERAPY. PT CALLS APPROPRIATELY. TREATED FOR ANXIETY PER EMAR. NO DISTRESS NOTED AT THIS TIME. WILL CONTINUE TO MONITOR.
[2021-01-23 05:52] LABS: BASOPHILS ABSOLUTE AUTO 0.07 K/mm3 (0.00-0.23); BASOPHILS PERCENT AUTO 1 % (0-2); EOSINOPHILS ABSOLUTE AUTO 0.22 K/mm3 (0.00-0.68); EOSINOPHILS PERCENT AUTO 3 % (0-6); Hematocrit 38.2 % (33.0-51.0); Hemoglobin 11.5 g/dL (11.5-16.0); IMMATURE GRAN ABSOLUTE AUTO 0.01 K/mm3 (0.00-0.10); IMMATURE GRAN PERCENT AUTO 0 % (0-1); LYMPHOCYTES ABSOLUTE AUTO 2.99 K/mm3 (0.84-5.20); LYMPHOCYTES PERCENT AUTO 46 % (21-46); MONOCYTES ABSOLUTE AUTO 0.45 K/mm3 (0.16-1.47); MONOCYTES PERCENT AUTO 7 % (4-13); Mean Corpuscular HGB 27.4 pg (26.0-34.0); Mean Corpuscular HGB Conc 30.1 g/dL (31.5-36.5); Mean Corpuscular Volume 91 fL (80-100); Mean Platelet Volume 11.9 fL (9.1-12.4); NEUTROPHILS ABSOLUTE AUTO 2.83 K/mm3 (1.96-9.15); NEUTROPHILS PERCENT AUTO 43 % (41-73); Platelet Count 294 K/mm3 (150-400); RDW Coefficient Variation 15.3 % (11.7-14.2); RDW Standard Deviation 51.4 fL (35.1-46.3); Red Blood Cell Count 4.19 M/mm3 (3.80-5.20); White Blood Cell Count 6.57 K/mm3 (4.00-11.30)
--- NOTE | 2021-01-23 05:56 | NUR ---
PT IS ALERT UP TO RESTROOM WITH 1 ASSIST AND FWW. MEDICATED PER EMAR FOR SLEEP, HEADACHE, EAR PAIN, AND ANXIETY. PT CAN BE EMOTIONAL AT TIMES, REASSURANCE AT TIMES IS HELPFUL.
[2021-01-23 06:21] LABS: Albumin, Blood 3.5 g/dL (3.4-5.0); Anion Gap 0 mmol/L (6-16); Blood Urea Nitrogen 13 mg/dL (8-24); Bun/Creatinine Ratio 17.6 (12.0-20.0); CO2, Blood 36 mmol/L (21-32); Calcium, Blood 8.9 mg/dL (8.5-10.1); Chloride, Blood 101 mmol/L (98-108); Creatinine, Blood 0.74 mg/dL (0.40-1.00); Glomerular Filtration Rate >60 (60-); Glucose, Blood 91 mg/dL (70-99); Magnesium, Blood 2.2 mg/dL (1.6-2.4); Phosphorus, Blood 4.6 mg/dL (2.5-4.9); Potassium, Blood 4.2 mmol/L (3.5-5.5); Sodium, Blood 137 mmol/L (136-145)
--- NOTE | 2021-01-23 16:53 | NUR ---
Shift Summary AOx4, pleasant and cooperative with care. 1P c gait and FWW, unsteady gait. Continent to bathroom. Medicated for anxiety x 2, CAZARES x 2 per EMAR with good effect. BUE are tremulous, this appears to be baseline. Voiding good. Denies nausea, vomiting, diarrhea. Had shower today. No acute changes, awaiting placement.
--- NOTE | 2021-01-23 22:11 | NUR ---
ASSUMED CARE REPORT RECEIVED FROM ELISA PERDOMO. PT SLEEPING COMFORTABLE IN BED AT THIS TIME.
--- NOTE | 2021-01-24 04:16 | NUR ---
SHIFT SUMMARY PT AOX4. COOPERATIVE WITH CARE AND USE CALL LIGHT APPROPRIATELY. PT SLEPT GOOD LAST NIGHT BUT STARTING TO FEEL UNCOMFORTABLE THIS MORNING. REPORTS H/A. PAIN LEVEL /10. MEDICATED W/ XANAX AND TYLENOL X1. ASLO SUDAFED X1 PRN. SHE ALSO HAS BEEN VOIDING MORE. SHE GETS UP W/ SBA, FWW, AND GB. TOLERATING IT WELL, STILL REPORTS SOME WEAKNESS IN BUE AND LUE. PT TOLERATING PO DENIES N/V. CALL LIGHT WITHIN REACH. WILL PROVIDE REPORT TO ONCOMING NURSE.
--- NOTE | 2021-01-24 16:17 | NUR ---
PT IS A/OX3, PLEASANT AND COOPERATIVE, THE PT IS UP WITH MINIMAL ASSIST TO THE BATHROOM, THE PT THIS AM WAS SOB, SPO2 IN THE 80'S O2 WAS APPLIED AND THE PT REPORTS BREATHING EASIER THIS AFTERNOON SPO2 IN THE 90'S, PT REPORTED CAZARES T/O THE DAY AND WAS MEDICATED FOR CAZARES, PT RESTED IN BED FOR MOST OF THE DAY, CALL LIGHT IN REACH, WILL CONTINUE TO MONITOR AND ASSESS FOR CHANGES
--- NOTE | 2021-01-25 04:27 | NUR ---
SUMMARY: A/OX4, CALLS APPROPRIATELY AND PLEASANT/COOPERATIVE W/CARE. SHE CONT'S TO HAVE CAZARES W/R.MASTOID PAIN R/T EAR INFECTION, CIPRO EAR GTTS RECIEVED AND TRAMADOL, TYLENOL AND IBUPROFEN PROVIDED FOR SLIGHT IMPROVEMENT IN PAIN. SHE SLEPT INTERMITTENTLY, SNACKED WA AND WAS ASSISTED W/FWW AND GB TO TOILET. XANAX RECIEVED AT BEDTIME FOR PERISTANT ANXIETY AND PT REMAINS ON 1L O2 VIA NC FOR COMFORT, SPO2 WNL AND RESPS E/U. NO ACUTE CHANGES, VSS/AFEBRILE. SNF REQUIRED UPON D/C. WCTM AND REPORT TO DAY RN.
--- NOTE | 2021-01-25 12:05 | NUR ---
IN TO SEE PATIENT. NEEDS IV. ORDER CT TEMPORAL W/CONTRAST.
--- NOTE | 2021-01-25 16:44 | NUR ---
CALLED AND LEFT MESSAGE ON HIS VOICE MAIL THAT CT TEMPORAL REPORT IN CHART. SMALL MASTOID EFFUSION RT SIDE OTHERWISE NORMAL
--- NOTE | 2021-01-25 17:16 | NUR ---
ADVISED THAT WE HAVE IV ASSESS IF PATIENT NEEDS ANY IV FLUIDS AND AWARE OF CT RESULTS.
--- NOTE | 2021-01-25 17:31 | NUR ---
ALERT. ONE PERSON ASSIST TO BATHROOM. CALLS APPROPRIATELY. C/O HEADACHE AND MEDICATED T/O SHIFT WITH BEST RESULTS USING TRAMADOL. TAKES MEDS IN APPLESAUCE. COOPERATIVE. NO ACUTE CHANGES. WCTM
--- NOTE | 2021-01-26 05:08 | NUR ---
SHIFT SUMMARY: PATIENT IS ALERT AND ORIENTED TO SELF, PLACE AND TIME. CONTINUES TO REPORT HEADACHE 7-04/27. TYLENOL, IBUPROFEN AND TRAMADOL ARE ALTERNATED TO PROVIDE FAIR EFFECT. PATIENT IS AXNIOUS AND REQUEST PRN XANAX X2. MED IS GIVEN WITH FAIR EFFECT. PATIENT ALSO REPORTS NAUSEA AND IS DRY HEAVING, NO EMESIS OBSERVED. ZOFRAN WAS GIVEN WITH FAIR EFFECT. UP WITH ASSIST OF 1-2, WITH FWW, UNSTEADY GAIT AT TIMES. BED ALARM IS ON FOR SAFETY.
--- NOTE | 2021-01-26 10:18 | NUR ---
PER DR.HACK HASTINGS TO D'C SCHEDULED BREATHING TREATMENTS AND LEAVE PRN. ORDER LACTULOSE ONE MORE TIME TO EFFECT.
--- NOTE | 2021-01-27 00:24 | NUR ---
RESTRAINTS: PATIENT IS MORE CONFUSED, IMPULSIVE AND WEAK TONIGHT. UNSTEADY WHEN UP EVEN WITH GAIT BELT AND WALKER. SETTING OFF BED ALARM REPEATEDLY. THERE WAS A CONTROLED LOWERING TO THE FLOOR. DR PARR WAS NOTIFIED AND ORDE FOR LANE VEST WAS OBTAINED. EDUCATION WAS GIVEN TO PATIENT ON THE NEED FOR RESTRAINT TO MAINTAIN PATIENT AND STAFF SAFETY. BED ALARM IS ON AND CALL HILL IS WITHIN REACH.
--- NOTE | 2021-01-27 06:35 | NUR ---
SHIFT SUMMARY: PATIENT IS A&O TO SELF, VERY CONFUSED THIS SIFT. VERY UNSTEADY WHEN UP. TRANSFER TO [facility], LEGS BUCKLED AND PATIENT WAS LOWERED TO THE GROUND. INPULSIVE, ANXIOUS AND REPORTING A HEADACHE. PRN XANAX AND TRAMADOL WERE GIVEN. DR PARR WAS NOTIFIED OF NEED FOR LANE VEST FOR SAFETY AND ORDER WAS OBTAINED. BED PEREYRA IS USED FOR URINATION, BED ALARM IS ON FOR SAFETY.
--- NOTE | 2021-01-27 12:33 | NUR ---
ALERT TO; SELF, PLACE AND DATE. INTERMITTENT MUMBLING SPEECH.THIS AM WAS HUMMING AND NOT C/O ANY PAIN OR NAUSEA. LANE ON. PATIENT AWARE NOT TO GET OUT OF BED. OXYGEN VIA NASAL CANNULA TAPED ON PATIENT DOES NOT LEAVE ON AND AT TIMES DOES DESATURATE. HAS BEEN IN TO SEE AND IS AWARE OF PATIENT CONDITION. VERY UNSTEADY ON FEET. [facility]
--- NOTE | 2021-01-27 18:22 | NUR ---
NO CHANGES FROM EARLIER ASSESSMENT. INTERMITENT ALERT TO JUST SELF OTHER TIMES TO SELF AND DATE. SLEEPING MOST OF SHIFT. NO C/O ;HEADACHE, NAUSEA, DIZZINESS. C/O INCREASE ANXIETY AND MEDICATED WITH GOOD RESULTS. LUNGS CLEAR TO DIM. DOES DESAT OFF OXYGEN. CAMERA ON AND AWARE TO LET US KNOW IF THEY SEE HER TAKING N/C OFF. WCTM.
--- NOTE | 2021-01-28 03:13 | NUR ---
PT ASSISTED X 3 AND ATTENDS DIAPERS WITH GOWN CHANGED; PT MUMBLING INCOHERENTLY TO SELF AND UNABLE TO FOLLOW ANY SIMPLE VERBAL COMMANDS; PTS THOUGHT PROCESS IS DISORGANIZED; PTS LANE VEST REAPPLIED FOR SAFETY.
--- NOTE | 2021-01-28 04:32 | NUR ---
SHIFT SUMMARY: 41 Y/O FEMALE HAD RESTLESS NIGHT AT TIMES WITH PATIENT ATTEMPTNG TO CLIMB OOB AND REQUIRED REORIENTATION AND REDIRECTION FROM STAFF; PT ALERT OT PERSON ONLY AND UNABLE TO EXPRESS ANY ORGANIZED THOUGHTS DURING NURSING INTERACTION WITH PATIENT; PT HAS CHILD LIKE BEHAVIOR AT TIMES WITH PT REQUIRING ASSISTANCE WITH ALL ADLS/IADLS; PT WAS UNABLE TO ASSIST NURSING STAFF WITH CHANGING WET ATTENDS OR APPLYING GOWN OR CHANGING LINEN; PT ALARM APPLIED, BED LOW POSITION WITH CALL LIGHT AT SIDE; LANE VEST RESTRAINT MAINTAINED; DENIES PAIN OR NAUSEA.
[2021-01-28 11:04] LABS: Hematocrit 38.4 % (33.0-51.0); Hemoglobin 11.5 g/dL (11.5-16.0); Mean Corpuscular HGB 26.8 pg (26.0-34.0); Mean Corpuscular HGB Conc 29.9 g/dL (31.5-36.5); Mean Corpuscular Volume 90 fL (80-100); Platelet Count 291 K/mm3 (150-400); RDW Coefficient Variation 14.5 % (11.7-14.2); RDW Standard Deviation 47.6 fL (35.1-46.3); Red Blood Cell Count 4.29 M/mm3 (3.80-5.20); White Blood Cell Count 9.78 K/mm3 (4.00-11.30)
[2021-01-28 11:25] LABS: Anion Gap 0 mmol/L (6-16); Blood Urea Nitrogen 11 mg/dL (8-24); CO2, Blood 44 mmol/L (21-32); Calcium, Blood 9.1 mg/dL (8.5-10.1); Chloride, Blood 90 mmol/L (98-108); Creatinine, Blood 0.58 mg/dL (0.40-1.00); Glomerular Filtration Rate >60 (60-); Glucose, Blood 131 mg/dL (70-99); Potassium, Blood 3.9 mmol/L (3.5-5.5); Sodium, Blood 134 mmol/L (136-145)
[2021-01-28 11:40] LABS: Lithium 0.84 mmol/L (0.60-1.20)
[2021-01-28 14:23] LABS: Source, Urine Catheter
[2021-01-28 14:47] LABS: Appearance, Urine Hazy (Clear); Bilirubin, Urine Neg (Neg); Blood, Urine 1+ (Neg); Color, Urine Yellow (P-Yellow); Glucose Qualitative, Urine Neg (Neg); Ketones, Urine Neg (Neg); Leukocyte Esterase, Urine 1+ (Neg); Nitrite, Urine Neg (Neg); Protein, Urine 2+ (Neg); Urobilinogen, Urine NORM (Normal)
[2021-01-28 14:55] LABS: Bacteria Many /hpf; Red Blood Cells, Urine 0-2 /hpf (0-2); Squamous Epithelial Cells Few /hpf (Few)
--- NOTE | 2021-01-28 17:23 | NUR ---
SUMMARY PT REMAINS CONFUSED TODAY, OCC NAUSEA, OCC AGITATED, REMAINS IN LANE VEST FOR SAFETY, UA OBTAINED, PT LETHARGIC OFF AND ON, DOES NOT ORIENT OR FOLLOW COMMANDS, PT/OT/ST DID VISIT THE PT AND WILL FOLLOW UP, PT REMAINS ON 4L NC, OCC TAKES THE OXYGEN OFF, PT WILL DROP SATS WITH O2 OFF, NO COMPLAINTS, WILL CONT TO MONITOR
--- NOTE | 2021-01-28 21:28 | NUR ---
CURRENTLY HOLDING ALL MEDS FOR PATIENT SAFETY PATIENT IS EXTREMELY LETHARGIC AND BARELY AROUSABLE, LIKELY INCAPABLE OF SAFELY SWALLOWING ANYTHING AT THIS TIME. WILL CONTINUE CLOSE MONITORING
--- NOTE | 2021-01-28 22:40 | NUR ---
BP 149/92, RN NOTIFIED, GETTING IV PLACED. RAILS UP. CALL LIGHT IN REACH
--- NOTE | 2021-01-29 07:27 | NUR ---
PCB DESIGN ENGINEER SUMMARY Timoteo was very lethargic overnight. VS were stable. UTI reported to evening hospitalist and Rocephin started on patient. Patient received no PO meds last night as this RN felt she was not safe to swallow. This AM, Timoteo began dry heaving around 0600. She was given her regularily scheduled iv Protonix as well as a dose of PRN Zofran with very temporary relief. Oncoming RN informed of situation.
--- NOTE | 2021-01-29 17:24 | NUR ---
SUMMARY PT HAS BEEN MORE ALERT, BUT STILL CONFUSED, AT ONE POINT ASKING TO CALL 911 TO "GET TO THE HOSPITAL" PT NEEDS FREQUENT REORIENTATION, ABLE TO TAKE MEDS WHOLE IN APPLESAUCE, REMAINS INCONTINENT OF BOWEL AND BLADDER, LANE VEST IN PLACE FOR SAFETY DUE TO CONFUSION AND IMPULSIVE BEHAVIOR, PT HAS ATTEMPTED TO GET UP OUT OF BED, VERY UNSTEADY, CALL PLACED TO SPOUSE IN AN ATTEMPT TO CALM PT DOWN, WITH GOOD SUCCESS, SPOUSE NOW HERE VISITING WITH THE PT, SHE IS MUCH CALMER AND COOPERATIVE WITH HIM PRESENT, VSS, WILL CONT TO MONITOR
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
--- NOTE | 2021-01-30 04:47 | NUR ---
SKIMMER REVERBERATORY SUMMARY PT A/O X1 TO SELF. PT SCREAMS OUT AT TIMES AND IS CONFUSED. PT IS VERY ANXIOUS AND IS FIDGITY. PT WAS ABLE TO SLEEP A LITTLE BIT AFTER MEDS WERE GIVEN. CONTINUES TO BE ON 3L O2 VIA NC SATTING IN THE LOW TO MID 90'S. CALL LIGHT WITHIN REACH, BED ALARM ON. VSS. PLEASE REVIEW PREVIOUS NOTE.
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
--- NOTE | 2021-01-30 10:00 | NUR ---
REVIEW OF STUDENT DOCUMENTATION THIS RN ASSESSED THE PT. THIS RN REVIEWED & AGREES WITH STUDENT NURSE'S DOUMENTATION OF A PHYSICAL ASSESSMENT.
--- NOTE | 2021-01-30 13:10 | NUR ---
CODE BLUE INITIATED PT WAS CHECKED ON BY THIS RN AT 1130. PT WAS RESTING IN BED WITH EYES CLOSED, BREATHING EVEN & UNLABORED ON 2L O2 VIA NC AT THIS TIME. PT HAD BEEN IN LANE [facility] THIS AM. THE ASSIGNED AIDE STATED SHE TALKED WITH THE PT AT APPROX 1145 ABOUT LUNCH COMING UP TO THE FLOOR SOON. AT 1211, THIS RN NOTICIED THAT THE PT WAS EXTRA QUIET, SO SHE WAS CHECKED ON. AT THIS TIME PT WAS FOUND SLOUCHED SLIGHTLY IN BED, O2 TUBING ON THE FLOOR, AND WITH BLUE LIPS. NO PULSE WAS FELT AND A CODE BLUE WAS CALLED. CPR STARTED BY THIS RN & CODE BLUE TEAM ARRIVED IMMEDIATELY. THIS RN THEN MOVED TO THE COMPUTER AND CODE TEAM CONTINUED. PT NOW HAS BEEN TRANSFERED TO ICU6. BEDSIDE REPORT GIVEN TO AYUSH STOKES RN. ATTEMPT TO CALL PTS , ARNOLDO WAS MADE BY THIS RN, BUT WAS UNSUCCESSFUL. NURSING RESCUE INSTRUCTOR NOTIFIED THAT PTS SPOUSE HAS NOT BEEN NOTIFIED YET. PER REMOTE MONITOR, SHAREE POLANCO, THE PT APPEARED TO BE SLEEPING PRIOR TO THE EVENTS, WITH NO SUSPICIOUS ACTIVITY.
[2021-01-30 13:28] LABS: BASOPHILS ABSOLUTE AUTO 0.11 K/mm3 (0.00-0.23); BASOPHILS PERCENT AUTO 1 % (0-2); EOSINOPHILS ABSOLUTE AUTO 0.03 K/mm3 (0.00-0.68); EOSINOPHILS PERCENT AUTO 0 % (0-6); Hematocrit 41.7 % (33.0-51.0); Hemoglobin 12.2 g/dL (11.5-16.0); IMMATURE GRAN ABSOLUTE AUTO 0.56 K/mm3 (0.00-0.10); IMMATURE GRAN PERCENT AUTO 4 % (0-1); LYMPHOCYTES PERCENT AUTO 32 % (21-46); MONOCYTES ABSOLUTE AUTO 0.26 K/mm3 (0.16-1.47); MONOCYTES PERCENT AUTO 2 % (4-13); Mean Corpuscular HGB 26.8 pg (26.0-34.0); Mean Corpuscular HGB Conc 29.3 g/dL (31.5-36.5); Mean Corpuscular Volume 92 fL (80-100); Mean Platelet Volume 11.2 fL (9.1-12.4); NEUTROPHILS ABSOLUTE AUTO 9.71 K/mm3 (1.96-9.15); NEUTROPHILS PERCENT AUTO 62 % (41-73); NRBC ABSOLUTE 0.02 K/mm3 (0.00-0.02); NRBC Auto 0.1 /100 WBC (0.0-0.2); Platelet Count 317 K/mm3 (150-400); RDW Coefficient Variation 14.6 % (11.7-14.2); RDW Standard Deviation 49.8 fL (35.1-46.3); Red Blood Cell Count 4.55 M/mm3 (3.80-5.20); White Blood Cell Count 15.57 K/mm3 (4.00-11.30)
--- NOTE | 2021-01-30 13:33 | NUR ---
ASSUMPTION OF CARE/CODE BLUE Assumed care of pt upon arrival to ICU 6 from medical floor at 1240. Bedside report received from Dulce Maria PERDOMO. Received pt after cardiopulmonary arrest on medical floor. Pt arrived intubated. ST per monitor. Shortly after arrival to unit, pt went into PEA and resuscitation event is as follows: 1243- Resuscitation effort began. CPR. 1 mg Epinephrine given 1247- 1/2 amp bicarb given 1248- ROSC achieved, HR 150 - sinus tachycardia, BP 199/115 1249- 1/2 amp bicarb given 1251- HR 118, 1 mg epi given due to downward trend of HR and BP. At this time, Dr Martinez at bedside to insert central line to right groin. 1301- levophed arrived from pharmacy, started at 8 mcg/min 1305- levophed titrated up to 15 mcg/min. Vitals BP 88/56, HR 109, RR 16, SpO2 92% 1307- levophed titrated up to 20 mcg/min. Vitals BP 78/51, HR 107, RR 16, SpO2 97% 1310- Vitals BP 100/69, HR 108, RR 16, SpO2 99% Pt promptly taken to CT by alaina RN, Nury PERDOMO, Dr Martinez, and RT Devorah for CTA head/neck to r/o CVA. Vitals per ZOLL during CT trip: 1313- BP 126/93, HR 107, RR 16, SpO2 97% 1324- BP 145/108, HR 107, RR 16, SpO2 95%
[2021-01-30 13:40] LABS: International Normalized Ratio 1.17; Prothrombin Time Results 12.5 Sec (9.7-11.5)
[2021-01-30 13:41] LABS: Alanine Aminotransfer (ALT/SGP 410 U/L (12-78); Albumin/Globulin Ratio 0.8 (0.8-1.8); Alk Phos 82 U/L (50-136); Anion Gap 9 mmol/L (6-16); Aspartate Aminotrans (AST/SGOT 427 U/L (12-37); Bilirubin, Total 0.3 mg/dL (0.1-1.0); Blood Urea Nitrogen 13 mg/dL (8-24); Bun/Creatinine Ratio 15.6 (12.0-20.0); CO2, Blood 39 mmol/L (21-32); Calcium, Blood 8.5 mg/dL (8.5-10.1); Chloride, Blood 90 mmol/L (98-108); Creatinine, Blood 0.84 mg/dL (0.40-1.00); Glomerular Filtration Rate >60 (60-); Glucose, Blood 238 mg/dL (70-99); Potassium, Blood 4.5 mmol/L (3.5-5.5); Sodium, Blood 138 mmol/L (136-145)
--- NOTE | 2021-01-30 14:00 | NUR ---
PATIENT ASSESSMENT On assessment, pt is entirely unresponsive. No reaction to central or peripheral pain. No cough, no gag. Pupils are equal, pinpoint. Right eye has deep upward gaze and left eye has mild upward gaze. Pt is not on sedation, reportedly pt received ketamine during intubation on medical floor (this happened at 1218). Pt not in restraints. Pt breathing at set rate of ventilator. Ventilator settings ACVC 16/400/5/50%. SpO2 90% or greater. Lungs coarse t/o. Creamy pink sputum aspirated from ETT and specimen sent to lab for bacterial culture. ST per monitor, rate 104. BP stable. Levophed remains at 20 mcg/min, plan to titrate down. No edema noted. Distal pulses faint/thready. Pt has OG tube to LIS with small amount of bile drainage. Douglas catheter in place with excellent urine output. Skin C/D/I. BUE has multiple spots of ecchomosis resembling prior venipunctures. Central line to right groin working well, however Dr Martinez planning to place cooling catheter. Pt's spouse has been updated on condition by nursing traffic sign erection supervisor, Marty PERDOMO.
[2021-01-30 14:23] LABS: Source, Urine Catheter
[2021-01-30 14:26] LABS: Base Excess Venous 19.6 mmol/L; Bicarbonate Venous 39.9 mmol/L (24.0-30.0); PCO2 Venous 66.8 mmHg (38-42); PO2 Venous 46.1 mmHg (38-42); pH Blood Venous 7.43 (7.34-7.37)
[2021-01-30 14:34] LABS: Appearance, Urine Clear (Clear); Bilirubin, Urine Neg (Neg); Blood, Urine 4+ (Neg); Color, Urine Yellow (P-Yellow); Glucose Qualitative, Urine 1+ (Neg); Ketones, Urine Neg (Neg); Leukocyte Esterase, Urine Neg (Neg); Nitrite, Urine Neg (Neg); Protein, Urine 3+ (Neg); Urobilinogen, Urine NORM (Normal)
[2021-01-30 14:54] LABS: Red Blood Cells, Urine 25-50 /hpf (0-2)
[2021-01-30 14:55] LABS: Squamous Epithelial Cells Few /hpf (Few)
[2021-01-30 14:56] LABS: Bacteria Mod /hpf
[2021-01-30 14:57] LABS: U Amphetamine Screen DETECTED; U Barbituate Screen Not Detected; U Benzodiazapine Screen Not Detected; U Buprenorphine Screen Not Detected; U Cannabinoids Screen Not Detected; U Cocaine Screen Not Detected; U Methadone Screen Not Detected; U Methamphetamine Screen Not Detected; U Opiates Screen Not Detected; U Oxycodone Screen Not Detected; U Phencyclidine Screen Not Detected; U Propoxyphene Screen Not Detected
--- NOTE | 2021-01-30 16:45 | NUR ---
DR GARCIA IN TO SEE PATIENT Provider at bedside. Asked nursing staff to give 5 mg lopressor to slow HR and capture EKG. This was done, pt tolerated well. BP remained stable. Provider discontinued xarelto in case cardiac cath needs to be performed. Pt to be started on heparin drip. Since last note, cooling catheter has been placed and internal cooling began at 1625. Pt tolerating well so far.
--- NOTE | 2021-01-30 17:30 | NUR ---
Pt's spouse at bedside, visiting. Updated by Dr Colvin. Per provider and pt's spouse, pt is now DNR.
--- NOTE | 2021-01-30 18:45 | NUR ---
SUMMARY No changes to initial assessment other than levophed has successfully been titrated down to 6 mcg/min. Ventilator settings AC VC 16/400/5/40%. SpO2 90% or greater. RT Hamm withdrew ETT 3 cm, as requested by Dr Martinez, this places the ETT at 23 cm ATT.
--- NOTE | 2021-01-30 19:25 | NUR ---
ASSUMPTION OF CARE RECEIVED REPORT FROM AYUSH PERDOMO AT 1910. ASSUMED CARE OF PATIENT. PATIENT INTUBATED, NO SEDATION INFUSING. NO NEURO RESPONSE TO VERBAL OR PHYSICAL STIMULI. NO GAG OR COUGH WITH SUCTION. BILATERAL PUPILS WITH FIXED, PINPOINT PUPILS AND UPWARDS GAZE. VENT SETTINGS AC16/400/PEEP5/40%, SATS ABOVE 95%. HEART RATE SINUS IN 80'S, BP WITH MAP ABOVE 65, LEVOPHED INFUSING AT 5MCG/MIN. HEPARIN INIATED AT 18U/KG. COOLING CATHETER CENTRAL LINE IN RIGHT GROIN WITH DRESSING, BRIGHT RED BLOOD NOTED AROUND DRESSING. COOLING CURRENTLY IN PROGRESS WITH TARGET TEMP OF 96.8F. CURRENT TEMP IS 96.2F. HERNANDEZ CATHETER IN PLACE WITH TEMPERATURE PROBE, CLEAR YELLOW URINE OUTPUT. ANTIBIOTICS INTIATED. WILL HOLD PO MEDICATIONS PER ROLL HANDLER ORDERS. OG CURRENTLY TO LIS WITH MINIMAL DARK GREEN OUTPUT. WILL REVIEW ORDERS AND TREAT PRESCRIBED.
--- NOTE | 2021-01-30 22:23 | NUR ---
RECTAL THERMOMETER RECTAL THERMOMETER PLACED AT THIS TIME, CURRENT TEMP IS 97.2
--- NOTE | 2021-01-31 00:05 | NUR ---
REASSESSMENT NO ACUTE CHANGES FROM PREVIOUS ASSESSMENT. VENT SETTINS AC 16/400/PEEP5/40%. REMAINS NON RESPONSIVE. OG TO LIS. COOLING IN PROGRESS WITH TEMP AT TARGET OF 96.8. LEVOPHED ON STANDBY WITH MAP ABOVE 65. WILL CONTINUE TO MONITOR.
[2021-01-31 04:11] LABS: Base Excess Venous 19.8 mmol/L; Bicarbonate Venous 39.9 mmol/L (24.0-30.0); PCO2 Venous 69.4 mmHg (38-42); pH Blood Venous 7.41 (7.34-7.37)
[2021-01-31 04:24] LABS: BASOPHILS ABSOLUTE AUTO 0.03 K/mm3 (0.00-0.23); BASOPHILS PERCENT AUTO 0 % (0-2); EOSINOPHILS ABSOLUTE AUTO 0.01 K/mm3 (0.00-0.68); EOSINOPHILS PERCENT AUTO 0 % (0-6); Hematocrit 37.5 % (33.0-51.0); Hemoglobin 11.4 g/dL (11.5-16.0); IMMATURE GRAN PERCENT AUTO 1 % (0-1); LYMPHOCYTES ABSOLUTE AUTO 2.16 K/mm3 (0.84-5.20); LYMPHOCYTES PERCENT AUTO 14 % (21-46); MONOCYTES ABSOLUTE AUTO 0.63 K/mm3 (0.16-1.47); MONOCYTES PERCENT AUTO 4 % (4-13); Mean Corpuscular HGB 26.6 pg (26.0-34.0); Mean Corpuscular HGB Conc 30.4 g/dL (31.5-36.5); Mean Corpuscular Volume 88 fL (80-100); Mean Platelet Volume 11.3 fL (9.1-12.4); NEUTROPHILS ABSOLUTE AUTO 13.02 K/mm3 (1.96-9.15); NEUTROPHILS PERCENT AUTO 82 % (41-73); Platelet Count 232 K/mm3 (150-400); RDW Coefficient Variation 15.1 % (11.7-14.2); RDW Standard Deviation 48.8 fL (35.1-46.3); Red Blood Cell Count 4.28 M/mm3 (3.80-5.20); White Blood Cell Count 15.95 K/mm3 (4.00-11.30)
--- NOTE | 2021-01-31 04:32 | NUR ---
REASSESSMENT NO ACUTE CHANGES FROM PREVIOUS ASSESSMENT. PATIENT WITH TWITCHING/JERKING MOVEMENTS TO BUE. REMAINS NON-RESPONSIVE. RT ADJUSTED VENT SETTINGS FROM AC TO SPONTANEOUS WITH NO RESPONSE FROM PATIENT. PATIENT DID NOT INITIATE OWN BREATH. REMAINS WITHOUT GAG AND COUGH. DRESSING CHANGED TO RIGHT GROIN CENTRAL LINE WITH INSTANT OOZING AT DRESSING SITE AFTER CLEAN DRESSING WAS PLACED. COOLING TAKING PLACE, PATIENT AT TARGET TEMP OF 96.8. WILL CONTINUE TO MONITOR.
[2021-01-31 04:49] LABS: Alanine Aminotransfer (ALT/SGP 297 U/L (12-78); Albumin, Blood 2.8 g/dL (3.4-5.0); Albumin/Globulin Ratio 0.8 (0.8-1.8); Alk Phos 65 U/L (50-136); Anion Gap 2 mmol/L (6-16); Aspartate Aminotrans (AST/SGOT 190 U/L (12-37); Bilirubin, Total 0.3 mg/dL (0.1-1.0); Blood Urea Nitrogen 21 mg/dL (8-24); Bun/Creatinine Ratio 28.5 (12.0-20.0); CO2, Blood 41 mmol/L (21-32); Calcium, Blood 8.2 mg/dL (8.5-10.1); Chloride, Blood 101 mmol/L (98-108); Creatinine, Blood 0.74 mg/dL (0.40-1.00); Globulin, Blood 3.6 g/dL (2.2-4.0); Glomerular Filtration Rate >60 (60-); Glucose, Blood 141 mg/dL (70-99); Sodium, Blood 144 mmol/L (136-145); Total Protein, Blood 6.4 g/dL (6.4-8.2)
--- NOTE | 2021-01-31 06:32 | NUR ---
SHIFT SUMMARY PATIENT WITH NO NEURO RESPONSE. NOTED TWITCHING/JERKING MOVEMENT OF EXTREMITIES, NOT PURPOSEFUL. THESE INCREASED, B/P TRENDING HIGH. REPORTD TO DR. LOUIE, RECEIVED ORDERS TO START PROPOFOL. PROPOFOL INITIATED AT 10MCG/KG. POTASSIUM INFUSING TO REPLACE 3.O LAB LEVEL THIS AM. LEVOPHED REMAINS OFF, HEPARIN AT 19U/KG. VENT SETTINGS AC16/400/5/40% SATS AT 93%. WILL CONTINUE TO MONITOR AND REPORT TO ONCOMING RN.
--- NOTE | 2021-01-31 10:06 | NUR ---
CHANGE IN HEAD POSITION, NO CHANGE IN SATS, OXYGEN VIA NC @ 2L PLACED. SATS NOW MID 90'S.
--- NOTE | 2021-01-31 10:24 | NUR ---
CHECKING ON PT, HER PUPILS WERE SIZE 4 AND RESPONSIVE, COUGHING WHEN SUCTIONED, EYES ROLLED UP, ARMS AND LEGS REMAIN FLACCID.
--- NOTE | 2021-01-31 11:22 | NUR ---
ATIVAN GIVEN PE 'S ORDERS FOR TREMORS. AWAITING IF EEG CAN BE DONE TODAY. PUPILS ARE NOW SIZE 3 WITH SLUGGISH RESPONSE. ARMS ABDUCTED, TENSION BACK TO 45 DEGREES WITH FIST FACING INWARD. FEET WITH NO RESPONSE.
--- NOTE | 2021-01-31 13:30 | NUR ---
EEG BEING PERFORMED, NAIL BED PRESSURE DONE FOR THE TEST WITHOUT ANY RESPONSE. PUPILS CONTINUE TO BE REACTIVE AT THIS TIME, NO PURPOSEFUL MOVEMENTS. TREMORS ARE LESSENING.
--- NOTE | 2021-01-31 16:00 | NUR ---
PT WITH LESS TREMBLING, BLEEDING IN THE MOUTH PRESENT WITH ORAL CARE. RIGHT GROIN SITE CONTINUES TO OOZE, DESPITE DRESSING CHANGE AND REINFORCED.
--- NOTE | 2021-01-31 17:06 | NUR ---
JHON'S IS HERE, HE ASKS IF HER HEART IS STILL BEATING AND IF SHE IS BREATHING ON HER OWN. I EXPLAINED THAT HER HEART IS STILL BEATING AND THAT THE VENTILATOR IS DOING MOST OF THE WORK FOR HER AT THIS TIME. HE JUST SHARES STORIES ABOUT HER.
--- NOTE | 2021-01-31 18:11 | NUR ---
GUY'S JUST LEFT. GUY HAD NO RESPONSE DURING THE TIME HE WAS PRESENT. SHE IS ON HEPARIN @ 19U/KG/HR AND PROPOFOL 15MCG/KG/MIN, HERNANDEZ TO GRAVITY DRAINAGE WITH POOR URINE OUTPUT. SHE CONTINUES WITH HER EYES FIXED UPWARD, HANDS CLENCHED AND NO MOVEMENTS, SPONTANEOUS OR OTHERWISE. SCLERA OF HER EYES ARE NOW EDEMATOUS, BODY FEELS WARM TO THE TOUCH. COOLING STOPPED AT 1625 PER ORDER FOR 24 HOUR COOLING, HEATING UNIT IS ON AT 98.7, PT RECTAL PROBE READS 99.1. PT FACE FLUSHED, NECK RED. ARMS AND LEGS REMAIN PALE IN COLOR, PULSES PALPABLE. RIGHT LEG/FOOT FEELS SLIGHTLY COOLER THAN LEFT. HEART RATE NOW IN THE 130S AND BP 135/99. PIVOT TUBEFEEDING CONTINUES AT 20ML/HR.
--- NOTE | 2021-01-31 19:39 | NUR ---
ASSUMPTION OF CARE RECEIVED REPORT FROM MABEL PERDOMO AT 1900 ASSUMED CARE OF PATIENT. PATIENT INTUBATED, PROPOFOL AT 15MCG/KG INCREASED TO 20MCG/KG PER TWITCHING MOVEMENTS AND ALARMING VENT. NO PURPOSEFUL MOVEMENTS NOTED. PUPILS PINPOINT AND NON REACTIVE. SCLERAL EDEMA BILATERALLY. OG WITH TUBE FEEDS OF PIVOT 1.5 INFUSING AT 20ML/HR WITH RESIDUALS OF 5CC REFED, INCREASED TUBE FEED TO 30ML/HR. BUE FLACCID AND ROTATED INWARDS TOWARDS BODY. CONSTANT SHAKING MOTION IN ABD WITH ABSCENT BOWEL TONES. HERNANDEZ WITH LUI, YELLOW URINE. CENTRAL LINE TO RIGHT GROIN OOZING, SATURATED DRESSING AND SURROUNDING PROTECTIVE GAUZE. BLE FLACCID. HEART RATE 130'S, B/P STABLE WITHOUT PRESSORS. WARMING IN PROGRESS WITH CURRENT RECTAL TEMP 97.7 AND HERNANDEZ TEMP 97.7. WILL REVIEW ORDERS AND TREAT PRESCRIBED.
--- NOTE | 2021-01-31 20:14 | NUR ---
TACHYCARDIA PATIENT WITH HEART RATE 120-130'S. NOTIFIED DR. LOUIE, RECEIVED ORDERS FOR METOPROLOL IV, ADMINISTERED CHARTED. HEART RATE NOW IN THE 90'S. B/P STABLE.
--- NOTE | 2021-02-01 | NUR ---
REASSESSMENT NO ACUTE CHANGES FROM PREVIOUS ASSESSMENT. REMAINS NON-RESPONSE TO ANY STIMULI. VENT SETTINGS UNCHANGED. HEART RATE 100-115, STABLE B/P. TEMP REMAINS AT GOAL. TUBE FEEDING INCREASED TO GOAL WITH RESIDUALS REMAINING AT 5ML/HR REFED. GLUCOSE STABLE. WILL CONTINUE TO MONITOR.
[2021-02-01 02:04] LABS: BASOPHILS ABSOLUTE AUTO 0.04 K/mm3 (0.00-0.23); BASOPHILS PERCENT AUTO 0 % (0-2); EOSINOPHILS ABSOLUTE AUTO 0.52 K/mm3 (0.00-0.68); EOSINOPHILS PERCENT AUTO 4 % (0-6); Hematocrit 34.8 % (33.0-51.0); Hemoglobin 10.6 g/dL (11.5-16.0); IMMATURE GRAN ABSOLUTE AUTO 0.05 K/mm3 (0.00-0.10); IMMATURE GRAN PERCENT AUTO 0 % (0-1); LYMPHOCYTES ABSOLUTE AUTO 2.37 K/mm3 (0.84-5.20); LYMPHOCYTES PERCENT AUTO 16 % (21-46); MONOCYTES ABSOLUTE AUTO 0.49 K/mm3 (0.16-1.47); MONOCYTES PERCENT AUTO 3 % (4-13); Mean Corpuscular HGB 26.8 pg (26.0-34.0); Mean Corpuscular HGB Conc 30.5 g/dL (31.5-36.5); Mean Corpuscular Volume 88 fL (80-100); Mean Platelet Volume 11.2 fL (9.1-12.4); NEUTROPHILS ABSOLUTE AUTO 11.08 K/mm3 (1.96-9.15); NEUTROPHILS PERCENT AUTO 76 % (41-73); Platelet Count 201 K/mm3 (150-400); RDW Coefficient Variation 15.7 % (11.7-14.2); Red Blood Cell Count 3.95 M/mm3 (3.80-5.20); White Blood Cell Count 14.55 K/mm3 (4.00-11.30)
[2021-02-01 02:22] LABS: Alanine Aminotransfer (ALT/SGP 180 U/L (12-78); Albumin, Blood 2.4 g/dL (3.4-5.0); Albumin/Globulin Ratio 0.6 (0.8-1.8); Alk Phos 72 U/L (50-136); Anion Gap 2 mmol/L (6-16); Aspartate Aminotrans (AST/SGOT 77 U/L (12-37); Bilirubin, Total 0.2 mg/dL (0.1-1.0); Blood Urea Nitrogen 21 mg/dL (8-24); Bun/Creatinine Ratio 32.9 (12.0-20.0); CO2, Blood 37 mmol/L (21-32); Chloride, Blood 104 mmol/L (98-108); Creatinine, Blood 0.64 mg/dL (0.40-1.00); Globulin, Blood 3.7 g/dL (2.2-4.0); Glomerular Filtration Rate >60 (60-); Glucose, Blood 177 mg/dL (70-99); Phosphorus, Blood 1.2 mg/dL (2.5-4.9); Potassium, Blood 3.2 mmol/L (3.5-5.5); Sodium, Blood 143 mmol/L (136-145); Total Protein, Blood 6.1 g/dL (6.4-8.2)
--- NOTE | 2021-02-01 04:00 | NUR ---
REASSESSMENT NO ACUTE CHANGES FROM PREVIOUS ASSESSMENT. HEART RATE INCREASING BACK TO 120-130. WILL CONTINUE TO MONITOR.
--- NOTE | 2021-02-01 05:35 | NUR ---
TACHYCARDIA PATIENT WITH HEART RATE SUSTAINING 130'S. NOTIFIED JACY, RECEIVED ORDERS FOR METOPROLOL IV. DOSE GIVEN, HEART NOW IN LOW 100'S. WILL CONTINUE TO MONITOR.
--- NOTE | 2021-02-01 06:15 | NUR ---
SHIFT SUMMARY PATIENT REMAINS UNRESPONSIVE. VENT SETTINGS AC16/400/PEEP5/40%. TACHYCARDIC WITH METOPROLOL ORDERED TO KEEP IT BELOW 120. WARMING CONTINUES WITH TEMP AT GOAL. HERNANDEZ REMAINS PATENT. CENTRAL LINE IN RIGHT GROIN CONTINUES TO OOZE, CURRENTLY CONTAINED WITHIN DRESSING. WILL CONTINUE TO MONITOR AND REPORT TO ONCOMING RN.
[2021-02-01 06:25] LABS: Vancomycin, Trough 14.1 ug/mL (5.0-10.0)
--- NOTE | 2021-02-01 07:30 | NUR ---
PT REMAINS UNRESPONSIVE. PT DOES NOT OPEN HER EYES, NO TREMORS, NO WITHDRAWAL TO PAINFUL STIMULI. PT'S SKIN IS COOL WITH A FINE APPEARANCE OF MOTTLING, EXTREMITIES ARE FLACCID, WHEN MOVED THEY REMAIN WHERE THEY LAY. ORAL CARE RETURNS SOME BLEEDING, RIGHT GROIN CENTRAL LINE SIGHT WITH LESS OOZING, DRESSING KEEPING ALL INTACT. COOLING CIRCUIT REMAINS AT NORMOTEMPATURE, WITH GOOD RESPONSE OF PATIENT. CATHETER TO GRAVITY WITH CLEAR YELLOW RETURN.
--- NOTE | 2021-02-01 15:47 | NUR ---
[id number] SCAN WITH RT KARAN. PT TOLERATED WELL. RETURNED TO ROOM AND PATIENT'S PHONED IN, STATED THAT HE ISN'T FEELING WELL AND WOULD LIKE TO NOT COME IN. QUESTIONED IF HE WERE AT A PLACE TO LET HIS PASS, HE STATED LONG HER HEART IS STILL BEATING HE BELIEVES. EXPLAINED THAT HER MIND IS NOT WORKING AND SHE HAS HAD NO RESPONSES TODAY, HE SAID HE UNDERSTANDS, BUT HER HEART IS STILL BEATING. PALLIATIVE CARE, PNTB AND DR. FALLON AWARE OF HIS DECISIONS.
--- NOTE | 2021-02-01 17:42 | NUR ---
PT NOTICED TO BE QUIVERING, ASSESSED BY RT AND RN, VENTILATOR TURNED TO SPONTANEOUS, PT TIDAL VOLUMES REGISTERING <20ML PER BREATH. COUNTING HER QUIVERING BREATHS WELL. PT BACK ON AC, SATS DROPPED TO 71% DURING THAT 30 SECOND TRIAL. IN, ORDERS PROPOFOL BACK ON AND 2MG ATIVAN. PT ALSO NOTICED TO HAVE INCREASED MOTTLING OF THE RIGHT ARM, FEELING COOLER THAN THE LEFT ARM. LEFT ARM RED IN COLOR. COOLING/TEMP CONTROL ZOLL WAS OFF WHILE PT TO CT, DR. FALLON SAID LEAVE OFF, PT NOTED TO HAVE INCREASE IN TEMP, ASKED FOR IT TO BE PUT BACK ON. SET AT 97.5 DEGREES. PTS QUIVERING IS SLIGHTLY BETTER.
--- NOTE | 2021-02-01 19:20 | NUR ---
ASSUMPTION OF CARE RECEIVED REPORT FROM MABEL PERDOMO, ASSUMED CARE OF PATIENT. PATIENT INTUBATED WITH VENT SETTINGS AC16/PEEP5/400/ZTA878%. NO NEURO RESPONSE TO ANY STIMULI, NO INITIATION OF OWN BREATH. OG WITH TF INFUSING AT GOAL OF 45ML/HR. PROPOFOL INFUSING AT 20MCG/KG, HEPARIN INFUSING AT 25U/KG VIA CENTRAL LINE IN RIGHT GROIN. DRESSING WITH DRIED BLOOD CONTAINED WITHIN SITE. NO NEW OOZING NOTED. HERNANDEZ CATHETER PATENT, SECURED AND DRAINING CLEAR, YELLOW URINE. COOLING CATH CONTINUES TO MAINTAIN TEMP CURRENTLY AT 97.7 VIA HERNANDEZ TEMP PROBE. WILL RECHECK PHOS/POTASSIUM LAB PER ELECTROLYTE PROTOCOL. REVIEWING ORDERS AND WILL TREAT PRESCRIBED.
[2021-02-01 20:07] LABS: Phosphorus, Blood 5.8 mg/dL (2.5-4.9); Potassium, Blood 3.9 mmol/L (3.5-5.5)
--- NOTE | 2021-02-02 | NUR ---
REASSESSMENT NO ACUTE CHANGES FROM PREVIOUS ASSESSMENT. VENT SETTINGS AC16/400/PEEP5/FIO2 30%. RESIDUALS OF 5ML REFED VIA OG. TF CONTINUE AT 45ML/HR. PROPOFOL REMAINS AT 20MCG/KG, HEPARIN AT 24 UNIT/KG. HERNANDEZ SECURED, PATENT AND DRAINING CLEAR, YELLOW URINE. WILL CONTINUE TO MONITOR.
--- NOTE | 2021-02-02 04:00 | NUR ---
REASSESSMENT NO ACUTE CHANGES FROM PREVIOUS ASSESSMENT. VENT SETTINGS AC16/400/5/30%. SATS ABOVE 95%. VITALS STABLE. TF REMAIN AT GOAL WITH RESIDUALS OF 50ML REFED. HERNANDEZ SECURE, PATENT AND DRAINING. COOLING/WARMING CONTINUING VIA CENTRAL LINE IN RIGHT GROIN. WILL CONTINUE TO MONITOR.
[2021-02-02 04:54] LABS: BASOPHILS ABSOLUTE AUTO 0.04 K/mm3 (0.00-0.23); BASOPHILS PERCENT AUTO 0 % (0-2); EOSINOPHILS ABSOLUTE AUTO 0.43 K/mm3 (0.00-0.68); EOSINOPHILS PERCENT AUTO 3 % (0-6); Hematocrit 33.2 % (33.0-51.0); Hemoglobin 9.7 g/dL (11.5-16.0); IMMATURE GRAN ABSOLUTE AUTO 0.07 K/mm3 (0.00-0.10); IMMATURE GRAN PERCENT AUTO 1 % (0-1); LYMPHOCYTES ABSOLUTE AUTO 1.61 K/mm3 (0.84-5.20); LYMPHOCYTES PERCENT AUTO 13 % (21-46); MONOCYTES ABSOLUTE AUTO 0.45 K/mm3 (0.16-1.47); MONOCYTES PERCENT AUTO 4 % (4-13); Mean Corpuscular HGB 26.4 pg (26.0-34.0); Mean Corpuscular HGB Conc 29.2 g/dL (31.5-36.5); Mean Corpuscular Volume 90 fL (80-100); Mean Platelet Volume 11.5 fL (9.1-12.4); NEUTROPHILS ABSOLUTE AUTO 9.97 K/mm3 (1.96-9.15); NEUTROPHILS PERCENT AUTO 79 % (41-73); Platelet Count 174 K/mm3 (150-400); RDW Coefficient Variation 16.1 % (11.7-14.2); RDW Standard Deviation 53.1 fL (35.1-46.3); Red Blood Cell Count 3.68 M/mm3 (3.80-5.20); White Blood Cell Count 12.57 K/mm3 (4.00-11.30)
[2021-02-02 05:27] LABS: Anion Gap 3 mmol/L (6-16); Blood Urea Nitrogen 20 mg/dL (8-24); CO2, Blood 37 mmol/L (21-32); Calcium, Blood 8.2 mg/dL (8.5-10.1); Chloride, Blood 101 mmol/L (98-108); Creatinine, Blood 0.56 mg/dL (0.40-1.00); Glomerular Filtration Rate >60 (60-); Glucose, Blood 190 mg/dL (70-99); Magnesium, Blood 1.8 mg/dL (1.6-2.4); Phosphorus, Blood 3.1 mg/dL (2.5-4.9); Potassium, Blood 3.5 mmol/L (3.5-5.5); Sodium, Blood 141 mmol/L (136-145)
--- NOTE | 2021-02-02 06:04 | NUR ---
SHIFT SUMMARY REMAINS UNRESPONSIVE, VENT SETTINGS AC16/400/PEEP5/40%. SATS DROPPED TO 85% ON 30% FIO2. TF 45ML/HR ORDERED WITH RESIDUALS CHARTED. DRESSING TO CENTRAL LINE IN RIGHT GROIN CHANGED. WARMING/COOLING REMAINED OVERNIGHT TO MAINTAIN NORMAL TEMP. PROPOFOL AT 20MCG/KG, WHEN TURNED OFF PATIENT WITH CONSTANT TWITCHING AND POSTURING OF EXTREMITIES. HEPARIN INCREASED TO 25UNIT/KG. HERNANDEZ SECURED, PATENT AND DRAINING CLEAR URINE. WILL REPORT TO ONCOMING RN.
--- NOTE | 2021-02-02 07:45 | NUR ---
PT INTUBATED AND SEDATED. PUPILS ARE REACTIVE TO LIGHT, UPWARD GAZE C DOLL'S EYES, SCLERAL EDEMA PRESENT BILATERALLY. UNRESPONSIVE TO VERBAL OR PAINFUL STIMULI. WHENEVER MOVED OR STIMULATED HER ABDOMEN STARTS TO SHAKE AND ARMS WILL FLEX/STRAIGHTEN, LASTS FOR A FEW MINUTES. DOES NOT APPEAR TO BE IN PAIN. VENT CHANGED TO 16/400/5/30%, SATS >92%. LUNG SOUNDS ARE COARSE THROUGHOUT, YET UNPRODUCTIVE C DEEP SUCTIONING. HR IN 90-100'S, PRN METOPROLOL FOR RATE CONTROL >120. PRESSURES REMAINING STABLE. OG TUBE C PIVOT 1.5 AT GOAL OF 45ML/HR, RESIDUAL OF 50ML THIS AM. TEMP HERNANDEZ DRAINING TO GRAVITY. CENTRAL LINE IN R GROIN, OOZING PRESENT. PT REMAINS COOL AND PALE, COOLING CATH AT 97.5. PT DOES NOT APPEAR TO BE IN ANY APPARENT DISTRESS. WILL CONTINUE TO MONITOR.
--- NOTE | 2021-02-02 17:59 | NUR ---
Spiritual care note: Much time spent with this pt/spouse throughout the day. T/C to spouse, Chris, this morning to get an idea of his understanding of pt's prognosis. He is deeply jainism and responded well to to having pt's illness talked about in spiritual terms. Chris believes that since her heart is still beating on its own, there is a change. I was asked by staff to explain that her brain had suffered a severe injury and she most likely will never return to anything like the life she knew/enjoyed. Chris apeared to understand this, and agreed that she would not want to be "kept alive on machines." He then began asking about arrangements and her SSD checks. I told him I did not know about the financial side of things after a pt passes. He was apprecitive of prayer and we had an easy rapport. He told me he was on his way in to discuss "allowing ehr to go home to God." Four hours later, he arrived with a family friend. I met with him one-on-one, again trying to establish how much he understood and next steps. Chris stated that since her heart is beating on its own, "there's hope for a miracle. And besides, my outsole skiver wont be back from vacation to do her until next week." As incongruent as this seemed to me, his stated plan is now to "give it one more day and see what happens." He is much older than Timoteo by 35 years and appeared physically frail and somewhat mentally fuzzy. 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 Hernandez spoke to Chris. Again, Chris stated he "wants to give it one more day." Many prayers were said with Chris throughout this day at his request, and he appeared to benefit from spiritual corrections counselor and mariam sharing. We had an easy rapport, and I advised I would continue to be available to him.
--- NOTE | 2021-02-02 19:42 | NUR ---
MULTIPLE CONVERSATIONS HELD TODAY WITH PALLIATIVE AND PASTORAL CARE REGARDING DIRECTION OF CARE. PT REMAINS INTUBATED AND SEDATED AT THIS TIME. UNREPONSIVE AND DOES NOT RESPOND TO NOXIOUS STIMULI. APPEARS TO HAVE SEIZURE-LIKE ACTIVITY WITH REPOSTIONING, PUPILS REMAIN FIXED DURING THIS TIME WITH CONSTANT UPWARD GAZE. LUNGS COURSE T/O SHIFT, EVEN WITH DEEP SUCTIONING. MINIMAL AMOUNTS OF SPUTUM WITH DEEP SUCTIONING. VENT AT 14/400/5/30%, SATS >92%. HR IN 90-100'S, NO PRN LOPRESSOR GIVEN. COOLING CATH/CL IN R GROIN, INTACT AND AT 97.5. PRESSURES STABLE T/O SHIFT. TUBE FEED PIVOT 1.5 AT GOAL OF 45ML/HR, WITH 50ML RESIDUALS. BOWEL TONES HYPOACTIVE, NO BOWEL MOVEMENT TODAY. PT RESTING AND IN NO APPARENT DISTRESS AT THIS TIME.
--- NOTE | 2021-02-02 23:04 | NUR ---
SHIFT ASSESSMENT ASSUMED CARE OF PT @ 1900. REPORT RECEIVED FROM CONOR LEDESMA. PT INTUBATED AND SEDATED, VENT TMABAGSD-PT-68/400/30%/5 c O2 SATS >90%. NO NEURO RESPONSE TO STIMULI. NO VOLUNTARY RESPIRATIONS FROM PT. TF INFUSING @ GOAL VIA OG TUBE. PROPOFOL GTT @ 20MCG/KG & HEPARIN @ 25U/KG THROUGH CENTRAL LINE IN R GROIN. COOLING CATH MAINTAINING CORE TEMPERATURE OF 97.7, CONFIRMED WITH RECTAL AND URINARY TEMP PROBES. HERNANDEZ CATH DRAINING YELLOW URINE TO GRAVITY. WILL CONTINUE TO MONITOR CLOSELY.
[2021-02-03 05:26] LABS: Phosphorus, Blood 2.5 mg/dL (2.5-4.9)
[2021-02-03 05:37] LABS: Vancomycin, Trough 12.5 ug/mL (5.0-10.0)
--- NOTE | 2021-02-03 06:22 | NUR ---
SHIFT SUMMARY PT REMAINS INTUBATED AND SEDATED, NO CHANGES TO VENT SETTINGS. NO NEURO CHANGES, PT REMAINS UNRESPONSIVE TO STIMULI. HEPARIN RATE CHANGED TO 26U/KG/HR. COOLING CATH REMAINS IN PLACE c GOAL TEMP OF 97.7. HERNANDEZ CATH DRAINING YELLOW URINE. NO ACUTE CHANGES IN PT CONDITION DURING THE NIGHT. WILL CONTINUE TO MONITOR.
--- NOTE | 2021-02-03 10:01 | NUR ---
DR. FALLON/SEIZURE DR. FALLON TO ROOM - PT APPEARS TO BE SEIZING. ORDERS RECEIVED FOR 4MG IV ATIVAN PUSH NOW AND TO INCREASE PROPOFOL DRIP. PROPOFOL INCREASED TO 30MCG/KG AT THIS TIME.
--- NOTE | 2021-02-03 17:05 | NUR ---
Spiritual care note: T/C to spouse earlier today. He is appreciative of spiritual support and adolescent counselor. He will "try" to come see Timoteo later this afternoon. He told me he has been making phone calls and speaking to neurology tech about finacial concerns he has after Timoteo passes. He was non-committal about when/if he is going to make decision. This afternoon, a "family friend" Milagros was at bedside. She spoke very quickly and appeared rather scattered. yet, she responded well to gentle adolescent counselor and comfort. I will remain avaialble.
--- NOTE | 2021-02-03 19:37 | NUR ---
Spiritual care note: Present with spouse, Chris, as he made decision to let Timoteo go. Provided prayer and drapery counselor to good effect. I will remain avaiable.
[2021-02-04 04:46] LABS: BASOPHILS ABSOLUTE AUTO 0.06 K/mm3 (0.00-0.23); BASOPHILS PERCENT AUTO 1 % (0-2); EOSINOPHILS ABSOLUTE AUTO 0.37 K/mm3 (0.00-0.68); EOSINOPHILS PERCENT AUTO 4 % (0-6); Hematocrit 28.6 % (33.0-51.0); Hemoglobin 8.5 g/dL (11.5-16.0); IMMATURE GRAN ABSOLUTE AUTO 0.13 K/mm3 (0.00-0.10); IMMATURE GRAN PERCENT AUTO 2 % (0-1); LYMPHOCYTES ABSOLUTE AUTO 2.39 K/mm3 (0.84-5.20); LYMPHOCYTES PERCENT AUTO 29 % (21-46); MONOCYTES ABSOLUTE AUTO 0.47 K/mm3 (0.16-1.47); MONOCYTES PERCENT AUTO 6 % (4-13); Mean Corpuscular HGB 26.8 pg (26.0-34.0); Mean Corpuscular HGB Conc 29.7 g/dL (31.5-36.5); Mean Corpuscular Volume 90 fL (80-100); Mean Platelet Volume 11.9 fL (9.1-12.4); NEUTROPHILS ABSOLUTE AUTO 4.98 K/mm3 (1.96-9.15); NEUTROPHILS PERCENT AUTO 59 % (41-73); Platelet Count 160 K/mm3 (150-400); RDW Coefficient Variation 16.4 % (11.7-14.2); RDW Standard Deviation 54.5 fL (35.1-46.3); Red Blood Cell Count 3.17 M/mm3 (3.80-5.20)
[2021-02-04 05:06] LABS: International Normalized Ratio 0.95; Prothrombin Time Results 10.3 Sec (9.7-11.5)
[2021-02-04 05:07] LABS: Alanine Aminotransfer (ALT/SGP 55 U/L (12-78); Albumin, Blood 2.2 g/dL (3.4-5.0); Albumin/Globulin Ratio 0.6 (0.8-1.8); Alk Phos 71 U/L (50-136); Amylase, Blood 48 U/L (25-115); Anion Gap 3 mmol/L (6-16); Aspartate Aminotrans (AST/SGOT 30 U/L (12-37); Bilirubin, Direct <0.1 mg/dL (0.0-0.3); Bilirubin, Indirect Unable to Calculate mg/dL (0.1-0.7); Bilirubin, Total 0.2 mg/dL (0.1-1.0); Blood Urea Nitrogen 21 mg/dL (8-24); Bun/Creatinine Ratio 41.7 (12.0-20.0); CO2, Blood 32 mmol/L (21-32); Calcium, Blood 8.6 mg/dL (8.5-10.1); Chloride, Blood 107 mmol/L (98-108); Globulin, Blood 3.9 g/dL (2.2-4.0); Glomerular Filtration Rate >60 (60-); Glucose, Blood 155 mg/dL (70-99); Magnesium, Blood 1.8 mg/dL (1.6-2.4); Potassium, Blood 3.4 mmol/L (3.5-5.5); Sodium, Blood 142 mmol/L (136-145); Total Protein, Blood 6.1 g/dL (6.4-8.2)
[2021-02-04 05:24] LABS: Source, Urine Catheter
[2021-02-04 05:28] LABS: Bilirubin, Urine Neg (Neg); Blood, Urine Neg (Neg); Glucose Qualitative, Urine Neg (Neg); Ketones, Urine Neg (Neg); Leukocyte Esterase, Urine Neg (Neg); Nitrite, Urine Neg (Neg); Protein, Urine Neg (Neg); Urobilinogen, Urine NORM (Normal)
[2021-02-04 05:35] LABS: Appearance, Urine Clear (Clear); Color, Urine Yellow (P-Yellow)
--- NOTE | 2021-02-04 06:32 | NUR ---
END OF SHIFT SUMMARY: PATIENT HAS REMAINED STABLE OVERNIGHT WITH NO VENT CHANGES. 400/14/5/50%. WORKED WITH PAOLO OVERNIGHT FROM [employer]. MULTIPLE LABS OBTAINED FOR OUR LAB AND FOR HER TO TAKE BACK TO [place]. PROPOFOL HAS BEEN TITRATED DOWN FROM 60 TO 35 DUE TO BLOOD PRESSURES BEING SOFT. HEPATIN DRIP REMAINS AT 26. PATIENT REMAINS UNRESPONSIVE WITH PINPOINT PUPILS. PATIENT TURNED Q2 FOR COMFORT AND TO PREVENT PRESSURE BREAKDOWN. COOLING CATH REAMINS IN USE. FAMILY UPDATED
--- NOTE | 2021-02-04 11:06 | NUR ---
ASSUMPTION OF CARE ASSUMED CARE OF THIS PT. PT REMAINS INTUBATED AT THIS TIME WITH VENT SETTINGS AC 14/400/5/500. PT CURRENTLY RECEIVING PROPOFOL 35MCG/KG/MIN, HEPARIN 26UNITS/KG/HR. INTERMITTENT SEIZURE ACTIVITY, TREATED WITH ATIVAN PER EMAR. PUPILS 5MM, UNREACTIVE, AND PT HAS R UPWARD GAZE. PT HAS COOLING CATH IN PLACE AT TARGET TEMP. PNTB HERE TO REVIEW CHART AND PREPARE FOR POSSIBLE DCD TOMORROW.
[2021-02-04 16:02] LABS: BASOPHILS ABSOLUTE AUTO 0.04 K/mm3 (0.00-0.23); BASOPHILS PERCENT AUTO 1 % (0-2); EOSINOPHILS ABSOLUTE AUTO 0.34 K/mm3 (0.00-0.68); EOSINOPHILS PERCENT AUTO 4 % (0-6); Hematocrit 26.7 % (33.0-51.0); Hemoglobin 8.1 g/dL (11.5-16.0); IMMATURE GRAN ABSOLUTE AUTO 0.15 K/mm3 (0.00-0.10); IMMATURE GRAN PERCENT AUTO 2 % (0-1); LYMPHOCYTES ABSOLUTE AUTO 2.27 K/mm3 (0.84-5.20); LYMPHOCYTES PERCENT AUTO 29 % (21-46); MONOCYTES ABSOLUTE AUTO 0.45 K/mm3 (0.16-1.47); MONOCYTES PERCENT AUTO 6 % (4-13); Mean Corpuscular HGB 26.7 pg (26.0-34.0); Mean Corpuscular HGB Conc 30.3 g/dL (31.5-36.5); Mean Corpuscular Volume 88 fL (80-100); Mean Platelet Volume 11.3 fL (9.1-12.4); NEUTROPHILS ABSOLUTE AUTO 4.63 K/mm3 (1.96-9.15); NEUTROPHILS PERCENT AUTO 59 % (41-73); Platelet Count 164 K/mm3 (150-400); RDW Coefficient Variation 16.3 % (11.7-14.2); RDW Standard Deviation 52.3 fL (35.1-46.3); Red Blood Cell Count 3.03 M/mm3 (3.80-5.20); White Blood Cell Count 7.88 K/mm3 (4.00-11.30)
[2021-02-04 16:21] LABS: Alanine Aminotransfer (ALT/SGP 45 U/L (12-78); Albumin, Blood 2.2 g/dL (3.4-5.0); Albumin/Globulin Ratio 0.6 (0.8-1.8); Alk Phos 63 U/L (50-136); Anion Gap 4 mmol/L (6-16); Aspartate Aminotrans (AST/SGOT 30 U/L (12-37); Bilirubin, Direct <0.1 mg/dL (0.0-0.3); Bilirubin, Total 0.1 mg/dL (0.1-1.0); Blood Urea Nitrogen 17 mg/dL (8-24); Bun/Creatinine Ratio 34.2 (12.0-20.0); CO2, Blood 29 mmol/L (21-32); Calcium, Blood 8.4 mg/dL (8.5-10.1); Chloride, Blood 109 mmol/L (98-108); Globulin, Blood 3.7 g/dL (2.2-4.0); Glomerular Filtration Rate >60 (60-); Glucose, Blood 105 mg/dL (70-99); Magnesium, Blood 1.8 mg/dL (1.6-2.4); Phosphorus, Blood 3.8 mg/dL (2.5-4.9); Potassium, Blood 3.5 mmol/L (3.5-5.5); Sodium, Blood 142 mmol/L (136-145); Total Protein, Blood 5.9 g/dL (6.4-8.2)
[2021-02-04 16:22] LABS: Bilirubin, Indirect Unable to Calculate mg/dL (0.1-0.7); International Normalized Ratio 0.95; Prothrombin Time Results 10.3 Sec (9.7-11.5)
[2021-02-04 16:54] LABS: SARS-Cov-2 (COVID-19) PCR, MMC NEGATIVE (NEGATIVE)
--- NOTE | 2021-02-04 17:54 | NUR ---
SHIFT SUMMARY PT REMAINS INTUBATED WITH SETTINGS AC 14/400/5/50. PT REMAINS UNRESPONSIVE TO STIMULI, PUPILS ARE UNREACTIVE. L RADIAL ART LINE PLACED BY DR FALLON. PT AND BROTHER AT BEDSIDE. DR FALLON UPDATED FAMILY ON PT CONDITION. PNTB TEAM DISCUSSED PLAN WITH . TENTATIVE PLAN FOR PT TO GO TO OR TOMORROW BETWEEN [phone]. RT, HOSPITALIST, AND OR AWARE OF PLAN. COOLING CATH REMAINS IN PLACE AT GOAL TEMP. PT CURRENTLY RECEIVING PROPOFOL 50MCG/KG/MIN, HEPARIN 26UNITS/KG/HR, AND LEVOPHED 1MCG/MIN. WILL REPORT TO ONCOMING RN.
--- NOTE | 2021-02-04 19:00 | NUR ---
ASSUMED CARE ASSUMED CARE OF PATIENT. REMAINS INTUBATED- AC 14, TV 400, PEEP 5, FIO2 50%. RR 14. PROPOFOL AT 50MCG/KG/MIN. UNRESPONSIVE TO NOXIOUS STIMULI. BILATERAL EYES WITH UPWARD GAZE DEVIATING TO THE RIGHT. NO PUPIL RESPONSE. NO SEIZURE ACTIVITY NOTED AT THIS TIME. MONITOR SHOWS NSR, RATE 70s. MAP >65 WITH LEVOPHED AT 1MCG/MIN. AFEBRILE. LEFT RADIAL ARTERIAL LINE PATENT. HAND IS WARM AND PINK. COOLING CATHETER INTACT TO RIGHT FEMORAL. HEPARIN INFUSING AT 26UNITS/KG/HR (33.8CC/HR) PER PHARMACY. OG CLAMPED AT THIS TIME. FOLE PATENT AND DRAINING CLEAR YELLOW URINE. SEE SHIFT ASSESSMENT FOR FULL ASSESSMENT.
[2021-02-04 19:41] LABS: PCO2 Arterial 37.4 mmHg (35-45)
[2021-02-04 20:17] LABS: Source, Urine Catheter
[2021-02-04 20:23] LABS: Bilirubin, Urine Neg (Neg); Blood, Urine Neg (Neg); Glucose Qualitative, Urine Neg (Neg); Ketones, Urine Neg (Neg); Leukocyte Esterase, Urine 1+ (Neg); Nitrite, Urine Neg (Neg); Protein, Urine 1+ (Neg); Urobilinogen, Urine NORM (Normal)
[2021-02-04 20:28] LABS: Appearance, Urine Clear (Clear); Color, Urine Yellow (P-Yellow)
[2021-02-04 20:29] LABS: Bacteria Many /hpf; Red Blood Cells, Urine 0-2 /hpf (0-2); Squamous Epithelial Cells Few /hpf (Few)
[2021-02-04 20:41] LABS: Vancomycin, Trough 16.4 ug/mL (5.0-10.0)
--- NOTE | 2021-02-04 22:07 | NUR ---
CONTACTED VIANEY Trujillo WHICH WAS RACQUEL BENITEZ JUANY. I EXPLAINED THE PT'S CASE, HE TOLD ME HE WOULD CONTACT THE ACTUAL M.E. TO HAVE THEM DECIDE WHAT NEEDS TO BE DONE. DIANA SHAH, THE M.E. CALLED ME, OBTAINED A BREIF SYNOPSIS OF THE PT'S CASE. WILL CONTACT AT [facility] AND TALK WITH HER AND DECIDE IF THE PT CAN DONATE HER ORGANS IN THE AM PLANNED.
[2021-02-04 22:27] LABS: PCO2 Arterial 47.7 mmHg (35-45); PO2 Arterial 75.7 mmHg (80-100)
[2021-02-05 04:27] LABS: BASOPHILS ABSOLUTE AUTO 0.05 K/mm3 (0.00-0.23); BASOPHILS PERCENT AUTO 1 % (0-2); EOSINOPHILS ABSOLUTE AUTO 0.32 K/mm3 (0.00-0.68); EOSINOPHILS PERCENT AUTO 4 % (0-6); Hematocrit 25.3 % (33.0-51.0); Hemoglobin 7.6 g/dL (11.5-16.0); IMMATURE GRAN ABSOLUTE AUTO 0.24 K/mm3 (0.00-0.10); IMMATURE GRAN PERCENT AUTO 3 % (0-1); LYMPHOCYTES ABSOLUTE AUTO 2.49 K/mm3 (0.84-5.20); LYMPHOCYTES PERCENT AUTO 33 % (21-46); MONOCYTES ABSOLUTE AUTO 0.52 K/mm3 (0.16-1.47); MONOCYTES PERCENT AUTO 7 % (4-13); Mean Corpuscular HGB 26.9 pg (26.0-34.0); Mean Corpuscular Volume 89 fL (80-100); Mean Platelet Volume 11.8 fL (9.1-12.4); NEUTROPHILS ABSOLUTE AUTO 4.01 K/mm3 (1.96-9.15); NEUTROPHILS PERCENT AUTO 53 % (41-73); Platelet Count 171 K/mm3 (150-400); RDW Coefficient Variation 16.4 % (11.7-14.2); RDW Standard Deviation 53.3 fL (35.1-46.3); Red Blood Cell Count 2.83 M/mm3 (3.80-5.20); White Blood Cell Count 7.63 K/mm3 (4.00-11.30)
[2021-02-05 04:42] LABS: International Normalized Ratio 0.96; Prothrombin Time Results 10.4 Sec (9.7-11.5)
[2021-02-05 04:45] LABS: Alanine Aminotransfer (ALT/SGP 42 U/L (12-78); Albumin, Blood 2.1 g/dL (3.4-5.0); Albumin/Globulin Ratio 0.6 (0.8-1.8); Alk Phos 66 U/L (50-136); Anion Gap 4 mmol/L (6-16); Aspartate Aminotrans (AST/SGOT 29 U/L (12-37); Bilirubin, Direct <0.1 mg/dL (0.0-0.3); Bilirubin, Indirect Unable to Calculate mg/dL (0.1-0.7); Bilirubin, Total 0.2 mg/dL (0.1-1.0); Blood Urea Nitrogen 13 mg/dL (8-24); CO2, Blood 28 mmol/L (21-32); Calcium, Blood 8.4 mg/dL (8.5-10.1); Chloride, Blood 112 mmol/L (98-108); Creatinine, Blood 0.52 mg/dL (0.40-1.00); Globulin, Blood 3.7 g/dL (2.2-4.0); Glomerular Filtration Rate >60 (60-); Glucose, Blood 115 mg/dL (70-99); Magnesium, Blood 2.4 mg/dL (1.6-2.4); Phosphorus, Blood 4.2 mg/dL (2.5-4.9); Potassium, Blood 3.7 mmol/L (3.5-5.5); Sodium, Blood 144 mmol/L (136-145); Total Protein, Blood 5.8 g/dL (6.4-8.2)
[2021-02-05 05:39] LABS: Source, Urine Catheter
[2021-02-05 05:48] LABS: Appearance, Urine Clear (Clear); Bilirubin, Urine Neg (Neg); Blood, Urine Neg (Neg); Color, Urine Yellow (P-Yellow); Glucose Qualitative, Urine Neg (Neg); Ketones, Urine Neg (Neg); Leukocyte Esterase, Urine Neg (Neg); Nitrite, Urine Neg (Neg); Protein, Urine Neg (Neg); Urobilinogen, Urine NORM (Normal)
[2021-02-05 06:00] LABS: PO2 Arterial 138 mmHg (80-100); pH Blood Arterial 7.43 (7.35-7.45)
--- NOTE | 2021-02-05 06:14 | NUR ---
SHIFT SUMMARY NO ACUTE CHANGES DURING NOC. REMAINS INTUBATED. VENT SETTINGS NOW AC 12, TV 400, PEEP 5, FIO2 50%. RR 12-14. PROPOFOL CONTINUES AT 50MCG/KG/MIN. MEDICATED WITH ATIVAN 4MG IV X 2 DOSES FOR POSSIBLE SEIZURE ACTIVITY WHERE PT'S LEFT ARM TWITCHES RHYTHMICALLY. CONTINUES TO BE UNRESPONSIVE TO NOXIOUS STIMULI. EYES CONTINUE WITH UPWARD GAZE THAT IS DEVIATED TO THE RIGHT. HEPARIN INFUSING AT 25.5UNITS/KG/HR PER PHARMACY. LEVOPHED INFUSING AT 1MCG/MIN TO MAINTAIN MAP >65. OG IS CLAMPED. HERNANDEZ PATENT AND DRAINING CLEAR YELLOW URINE. LEFT RADIAL ARTERIAL LINE AND RIGHT FEMORAL CENTRAL LINE PATENT. PER PNTB, PLAN IS TO TAKE PT TO OR THIS AM AT APPROXIMATELY 1000 FOR DCD. WILL REPORT TO ONCOMING RN WHEN AVAILABLE.
--- NOTE | 2021-02-05 07:45 | NUR ---
ASSUMED CARE BEDSIDE REPORT RECIEVED. PT IS LAYING IN BED INTUBATED AND SEDATED. VENT SETTINGS AC 12, TV 400, PEEP 5, FIO2 50%. PT RR 12. NO COUGH OR GAG NOTED WITH DEEP SUCTION. PUPILS FIXED. EXTREMITIES FLACCID. NO RESPONSE TO NOXIOUS STIMULI NOTED. COOLING CENTRAL LINE TO RIGHT FEMORAL SITE C/D/I. PT NORMOTHERMIC. COOLING MACHINE DISCONNECTED. LINE REMAINS IN PLACE WITH LEVOPHED INFUSING AT 1 MCG/MIN, PROPOFOL 50 MCG/KG/MIN, HEPARIN 25.5 UNITS/KG/HR, AND NS TKO. ART LINE TO LEFT RADIAL SITE C/D/I. VITAL SIGNS STABLE AT THIS TIME. OGT IN PLACE, CONNECTED TO LIS. HERNANDEZ TEMP PROBE IN PLACE WITH CLEAR YELLOW URINE OUTPUT NOTED. RECTAL TEMP PROBE IN PLACE. PNTB SUPPLY AND DISTRIBUTION MANAGER AT BEDSIDE. PLAN FOR PT TO GO TO OR AROUND 1000. WILL CONTINUE TO MONITOR.
--- NOTE | 2021-02-05 12:07 | NUR ---
02/05/21 1207 Jasson Self 1155 LIVER OUT 1158 RIGHT KIDNEY OUT 1200 LEFT KIDNEY OUT 1201 LIVER BIOSPY COLLECTED BY DR. DOYLE AND SENT TO PATHOLOGY
--- NOTE | 2021-02-05 12:32 | NUR ---
EXTUBATION/TIME OF PT TAKEN FROM ICU AT 1015 TO OR FOR ORGAN HARVEST. RT, DR CASTANEDA, AND PNTB TEAM AT BEDSIDE DURING TRANSPORT. PT MOVED TO OR TABLE. FAMILY CAME TO BEDSIDE. PT PRE MEDICATED WITH 10 MG MORPHINE PRIOR TO EXTUBATION. [id number] UNITS IV HEPARIN GIVEN PER PNTB. PT EXTUBATED AT 1102. TIME OF CARDIAC CALLED AT [address] CASTANEDA.
== END 2021-02-05 11:21 | DRG 917 ==
LOC: ER 12:33 → PCU 18:16 → MEDS 18:16 → ICUE 18:16 → PCU 18:17 → MEDS 12-15 16:14 → ICUE 01-30 12:39
PROVIDERS: Emergency Medicine; Family Medicine; Internal Medicine; Internal Medicine Cardiovascular Disease; Internal Medicine Critical Care Medicine; Internal Medicine Pulmonary Disease; Pharmacist; Psychiatry & Neurology Neurology; ADMIT Internal Medicine
PROC: HZ2ZZZZ Detoxification Services for Substance Abuse Treatment (ICD-10-PCS; 2020-12-12)
PROC: 0DH67UZ Insertion of Feeding Device into Stomach, Via Natural or Artificial Opening (ICD-10-PCS; 2020-12-30)
PROC: 3E0G76Z Introduction of Nutritional Substance into Upper GI, Via Natural or Artificial Opening (ICD-10-PCS; 2020-12-30)
PROC: 0BH17EZ Insertion of Endotracheal Airway into Trachea, Via Natural or Artificial Opening (ICD-10-PCS; principal; 2021-01-30)
PROC: 5A1955Z Respiratory Ventilation, Greater than 96 Consecutive Hours (ICD-10-PCS; 2021-01-30)
PROC: 5A12012 Performance of Cardiac Output, Single, Manual (ICD-10-PCS; 2021-01-30)
PROC: 3E043XZ Introduction of Vasopressor into Central Vein, Percutaneous Approach (ICD-10-PCS; 2021-01-30)
PROC: 06HY33Z Insertion of Infusion Device into Lower Vein, Percutaneous Approach (ICD-10-PCS; 2021-01-30)
PROC: 03HY32Z Insertion of Monitoring Device into Upper Artery, Percutaneous Approach (ICD-10-PCS; 2021-02-04)
PROC: 4A133B1 Monitoring of Arterial Pressure, Peripheral, Percutaneous Approach (ICD-10-PCS; 2021-02-04)
PROC: 4A133J1 Monitoring of Arterial Pulse, Peripheral, Percutaneous Approach (ICD-10-PCS; 2021-02-04)
DX: T50.991A Poisoning by other drugs, medicaments and biological substances, accidental (unintentional), initial encounter (principal); G92 Toxic encephalopathy; J69.0 Pneumonitis due to inhalation of food and vomit; G08 Intracranial and intraspinal phlebitis and thrombophlebitis; J96.01 Acute respiratory failure with hypoxia; R57.9 Shock, unspecified; Z66 Do not resuscitate; Z51.5 Encounter for palliative care; N39.0 Urinary tract infection, site not specified; F31.60 Bipolar disorder, current episode mixed, unspecified; F10.231 Alcohol dependence with withdrawal delirium; E87.0 Hyperosmolality and hypernatremia; H70.001 Acute mastoiditis without complications, right ear; G32.0 Subacute combined degeneration of spinal cord in diseases classified elsewhere; B48.8 Other specified mycoses; G93.1 Anoxic brain damage, not elsewhere classified; I46.9 Cardiac arrest, cause unspecified; T41.0X5A Adverse effect of inhaled anesthetics, initial encounter; T51.91XA Toxic effect of unspecified alcohol, accidental (unintentional), initial encounter; G62.1 Alcoholic polyneuropathy; B96.20 Unspecified Escherichia coli [E. coli] as the cause of diseases classified elsewhere; G47.419 Narcolepsy without cataplexy; K72.90 Hepatic failure, unspecified without coma; F41.9 Anxiety disorder, unspecified; D53.9 Nutritional anemia, unspecified; J44.9 Chronic obstructive pulmonary disease, unspecified; E53.8 Deficiency of other specified B group vitamins; K21.9 Gastro-esophageal reflux disease without esophagitis; E03.9 Hypothyroidism, unspecified; E11.9 Type 2 diabetes mellitus without complications; F19.10 Other psychoactive substance abuse, uncomplicated; F90.9 Attention-deficit hyperactivity disorder, unspecified type; F43.10 Post-traumatic stress disorder, unspecified; F17.290 Nicotine dependence, other tobacco product, uncomplicated; Z90.89 Acquired absence of other organs; Z98.890 Other specified postprocedural states; Z88.0 Allergy status to penicillin; Z88.8 Allergy status to other drugs, medicaments and biological substances; Z79.899 Other long term (current) drug therapy; Z68.30 Body mass index [BMI] 30.0-30.9, adult
CPT/HCPCS: 31500; 36415; 36556; 36569; 36620; 51701; 51702; 70450; 70481; 70496; 70498; 70551; 71045; 71046; 71260; 72156; 72157; 74177; 80048; 80053; 80069; 80178; 80202; 81001; 81003; 81025; 82140; 82150; 82248; 82390; 82525; 82550; 82607; 82746; 82803; 82947; 83036; 83605; 83690; 83735; 83880; 83921; 84100; 84132; 84436; 84443; 84446; 84481; 84484; 85025; 85027; 85379; 85610; 85651; 85730; 86340; 86900; 86901; 87040; 87070; 87077; 87086; 87186; 87205; 87493; 92507; 92523; 92526; 92610; 93005; 93010; 93306; 93308; 93321; 94002; 94003; 94640; 94667; 94668; 94760; 94762; 95819; 96374-59; 96375-59; 97110; 97112; 97116; 97163; 97164; 97166; 97530; 97535; 99285-25; A9270; A9579; C1751; C9113; G0480; J0692; J0696; J1630; J1644; J1650; J1940; J1953; J2060; J2270; J2704; J3370; J3411; J3420; J3475; J3480; J7030; J7040; J7050; J7060; J7070; Q9967; U0004